=== PATIENT | female | born 1945 | race Caucasian/White ===

== ENCOUNTER 2022-11-03 08:03 | Inpatient (IN) ==
--- NOTE | 2022-10-28 12:45 | PAT Medication Instructions ---
Medication Instructions Date of Service October 28, 2022 Home Medications cetirizine 10 mg tablet 10 mg PO DAILY PRN aspirin 81 mg tablet,delayed release 81 mg PO QAM atorvastatin 20 mg tablet 20 mg PO QAM clopidogrel 75 mg tablet 75 mg PO QAM fluoxetine 40 mg capsule 40 mg PO QAM levothyroxine 50 mcg tablet 50 mcg PO QAM omeprazole 40 mg capsule,delayed release 40 mg PO QAM triamterene 37.5 mg-hydrochlorothiazide 25 mg capsule 1 cap PO QAM ASK your prescriber and surgeon aspirin 81 mg tablet,delayed release 81 mg PO QAM clopidogrel 75 mg tablet 75 mg PO QAM DO NOT take the morning of surgery cetirizine 10 mg tablet 10 mg PO DAILY PRN triamterene 37.5 mg-hydrochlorothiazide 25 mg capsule 1 cap PO QAM Take morning of surgery With a small sip of water, OTHERWISE NOTHING TO EAT OR DRINK AFTER MIDNIGHT: atorvastatin 20 mg tablet 20 mg PO QAM fluoxetine 40 mg capsule 40 mg PO QAM levothyroxine 50 mcg tablet 50 mcg PO QAM omeprazole 40 mg capsule,delayed release 40 mg PO QAM Other Notes If you have any questions please call us at [phone] or [phone] or or [phone]
--- NOTE | 2022-10-30 12:57 | Anesthesiology Consultation ---
Date of Service October 30, 2022 Assessment & Plan (1) Encounter for pre-operative examination: - mild end expiratory wheezing on exam, pt states was rx inhalers in past with benefit, occasional dyspnea on exertion on flat surfaces. Case discussed in detail with Dr. Trujillo who advised pt can proceed with planned surgery at current status-to anesthesiologist evaluation am DOS. - anesthesia reaction: hypotension. - Patient requiring admission post-operatively. Plan for recheck with [facility] AM DOS due to possibility that patient may have a roommate. OR aware. [facility] order placed. Chart Review Chart Review: Acceptable Risk for Surgery and Patient seen in Pre Admission Testing Teaching & Discussion Pre-Anesthesia Teaching/Discussion Notes: Instructed NPO after midnight before surgery, except medications with 15 cc of water. Medication instructions provided according to the PAT guidelines. History Surgery Operation Date: 11/03/22 10:10 Proposed Procedures p Right Transcarotid Artery Revascularization - Khoa Kulkarni MD Height/Weight Height: 4 ft 11.5 in Weight: 85.729 kg Allergies Allergy/AdvReac Type Severity Reaction Status Date / Time codeine AdvReac Severe Headache Verified 10/28/22 10:52 Medications Home Medications Medication Instructions Recorded Confirmed Last Taken cetirizine 10 mg tablet 10 mg PO DAILY PRN seasonal 09/05/22 10/28/22 Unknown allergies aspirin 81 mg tablet,delayed 81 mg PO QAM 10/28/22 10/28/22 Unknown release atorvastatin 20 mg tablet 20 mg PO QAM 10/28/22 10/28/22 Unknown clopidogrel 75 mg tablet 75 mg PO QAM 10/28/22 10/28/22 Unknown levothyroxine 50 mcg tablet 50 mcg PO QAM 10/28/22 10/28/22 Unknown omeprazole 40 mg capsule,delayed 40 mg PO QAM 10/28/22 10/28/22 Unknown release fluoxetine 40 mg capsule 40 mg PO QAM #90 caps 10/31/22 Unknown triamterene 37.5 1 cap PO QAM #90 caps 10/31/22 Unknown mg-hydrochlorothiazide 25 mg capsule Past Medical History Medical History Anxiety Carotid artery stenosis 80-90% stenosis R ICA Gastric reflux History of anesthesia reaction hypotension History of COVID-spring, sore throat and stomach cramps, cough-denies hospitalization- symptoms resolved Hypertension controlled, stable per pt Hypothyroidism Stroke history, found on the brain MRI. no current deficits. Transient ischemic attack (TIA) ~3 months ago, does not follow with neurology. Patient denies h/o seizures, heart attack, heart failure, DM, blood clots or blood transfusions. Exercise / Class Metabolic Activity III < 4 Walking/Shop/Light housework (occasional SOB with usual activities ongoing x 1 yr-denies change or worsening-denies chest discomfort) Past Family History Family History Mother Diabetes Aneurysm Sister Ovarian cancer Other No family history of adverse response to anesthesia Denies family history of Prostate cancer Myocardial infarction Breast cancer Colorectal cancer Hypertension Past Surgical History Surgical History History of colonoscopy S/P partial hysterectomy S/P wisdom tooth extraction Past Anesthesia History No Family Hx of Anesthesia Complications and Other (hypotension) History of PONV No Hx of PONV and No Hx of Motion Sickness Social History Smoking Status: Former smoker tobacco type: cigarettes Do You Dip or Chew Tobacco: No Smoking End Date: 2015 Hx Alcohol Use: Yes Alcohol type: wine alcohol intake frequency: holidays/special occasions only Hx Substance Use: No substance use type: does not use Review of Systems Chronic chills ongoing x 1 yr. Snoring, denies witnessed apneas. Patient denies chest pain, fever, cough, wheezing, or palpitations. Physical Exam Vital Signs Vitals BP 128/70 P 65 TEMP 98.4 SP02 97% on RA RESP 17 Physical Patient resting comfortably in chair in NAD, alert and oriented Full cervical extension range of motion without pain TMD 3.5 finger breadths Mallampati Score 3 Dentition: intact, denies chipped or loose teeth, caps/crowns, implants or bridges Lungs: normal respiratory effort. Good air movement, mild end expiratory wheezing, no rales or rhonchi Cardiac: regular rate and rhythm, no murmurs noted; radial pulses 2+ Extremities: no distal LE peripheral edema, normal temperature Lab Results Anesthesia Preop Results Results Anesthesia Widget: WBC 5.89 K/ul (4.8-10.8) 10/30/22 Hgb 12.7 g/dl (12.0-16.0) 10/30/22 Hct 38.2 % (37.0-47.0) 10/30/22 Plt 120 K/uL (130-400) L 10/30/22 Na 135 mmol/L (136-145) L 10/30/22 K 4.2 mmol/L (3.5-5.1) 10/30/22 Cl 105 mmol/L (98-107) 10/30/22 CO2 23 mmol/L (21-32) 10/30/22 BUN 16 mg/dl (6-23) 10/30/22 Creat 0.62 mg/dl (0.6-1.2) 10/30/22 Glucose Level 138 mg/dl (70-99(Fasting)) H 10/30/22 PT 11.2 Seconds (9.0-12.0) 10/30/22 PTT 31.3 Seconds (21.0-31.0) H 10/30/22 INR 1.0 (0.9-1.1) 10/30/22 Blood Type A Positive 10/30/22 Antibody Screen NEGATIVE 10/30/22 Testing Electrocardiogram Date: 10/30/22 NSR, rate 65 bpm Chest X-Ray Date: 10/30/22 Cardiac silhouette is enlarged. Mild chronic interstitial coarsening, most pronounced in the lung bases. No pneumothorax, pleural effusion, airspace consolidation or overt pulmonary edema. Bones of the chest appear grossly intact. IMPRESSION: No acute process. Other Testing Neck CTA 09/19/22 1. Extensive plaque within the right carotid bifurcation which results in severe stenosis of the proximal right internal carotid artery (80-90%), proximal right external carotid artery and distal most aspect of the right common carotid artery. 2. Extensive calcified plaque within the proximal left internal carotid artery. 50-60% stenosis of the proximal left internal carotid artery. 3. Moderate stenosis at the origin the right vertebral artery. 4. Moderate stenosis of the intracranial portion of the left vertebral artery. 5. Extensive plaque within the visualized portions of the aortic arch. Brain MRI 09/15/22 1. No acute intracranial abnormality. No acute or subacute infarct. 2. Involutional changes with extensive T2/FLAIR hyperintense foci throughout the white matter suggestive of chronic hypervascular ischemic disease. 3. Small chronic lacunar infarcts of the basal ganglia and white matter. PFT 07/11/22 Borderline reduction in both FEV1 and FVC without preserved ratio. No change after administration of inhaled bronchodilators. Pattern may be consistent with restrictive physiology and further assessment with lung volumes and diffusion capacity is recommended COVID-19 Risk Screen Screening Information COVID-19 Screen Date: 10/30/22 Exposure 21 Days Family/Household +COVID Last 21 Days: No Exposure 10 Days Any COVID Exposure Last 10 Days: No Symptoms Last 10 Days Experienced COVID Sx Last 10 Days: No + COVID 0-90 Days COVID + in Last 0-90 Days: No
--- NOTE | 2022-11-02 09:07 | History & Physical Report ---
Date of Service November 02, 2022 History of Present Illness Primary Care Provider: Clara Weathers MD Name: TRUMAN MCDANIEL Patient Number: [id number] : 1945 Date of Service: 10/27/2022 Chief Complaint: _New patient consultation for carotid stenosis HPI: _Mrs. Boss is an elderly female who presents to Dr. Kulkarni's vascular surgery clinic today as a new patient in consultation for right ICA stenosis. Patient states that about 4-5 months ago she had an episode while sitting in [employer] parking lot in her sister's car that she was unable to move her left leg for about 30 minutes. She states that it resolved completely at that point and she has not had any new symptoms since that time. She states that about 10 to 15 years ago she also had some symptoms but does not remember exactly what those entailed. She denies any symptoms of amaurosis, extremity weakness numbness or tingling, difficulty speaking or swallowing, facial droop, sudden onset confusion, other complaints. She denies fever, chills, chest pain, shortness of breath, abdominal pain, nausea, vomiting, rest pain, claudication, nonhealing wounds or ulcers. Review of systems: Total of 14 systems were reviewed and are negative aside from what is related in her HPI Imaging: Patient did undergo a carotid ultrasound at [facility] group which demonstrated over 80% stenosis of her right ICA. A CTA was then performed at [facility] which demonstrates a 90% stenosis of her right ICA, and 50 to 60% of her left. Current Home Meds: (Last Updated 10/27 16:14) FLUoxetine (FLUoxetine 40 mg oral capsule) 40 mg PO Daily aspirin (aspirin 81 mg oral delayed release tablet) 81 mg PO Daily atorvastatin (atorvastatin 20 mg oral tablet) 20 mg PO Daily clopidogrel (Plavix 75 mg oral tablet) 75 mg PO Daily hydroCHLOROthiazide-triamterene (hydroCHLOROthiazide-triamterene 25 mg-37.5 mg oral capsule) 1 cap PO Daily levothyroxine (levothyroxine 50 mcg (0.05 mg) oral tablet) 50 mcg PO Daily omeprazole (omeprazole 40 mg oral delayed release capsule) 40 mg PO Daily Allergies and Sensitivities: codeine(Headache) codeine(severe headache) Past Medical History: Problems: Carotid stenosis, bilateral Carotid artery stenosis Hypothyroidism Hypertension Gastroesophageal reflux disease Anxiety Surgical history: Positive for partial hysterectomy, dental teeth extraction Family history: Positive for diabetes and a heart aneurysm in her mother, ovarian cancer in her sister Social history: Patient is a former smoker, having smoked 1/2 pack/day from the age of 11 to the age of 69. She states she has an alcoholic beverage in the form of wine about once per month. She denies any illicit drug use. She is a . And is a retired retail receiving clerk OBJECTIVE No Vital Signs Data Available No Orthostatic Data Available No Height/Weight Data Available Physical Exam Constitutional: In general patient is a healthy-appearing well-nourished well- developed elderly female no distress. Is alert and orient without a focal deficits. He is normocephalic and atraumatic. Her carotids do demonstrate bruits bilaterally. Her heart is regular, her lungs are decreased lightly but clear. Her abdomen is soft and nontender with normoactive bowel sounds in all 4 quadrants. Brachial and radial pulse are +3. Femoral pulses are +3. Lower extremity distal pulses are +1 in the right foot +2 in the left. She has brisk capillary refill and no sign of distal ischemia. I do not notice any edema ASSESSMENT: _ PLAN: _ 1 ) _right ICA stenosis Patient does have a severe stenosis of her right internal carotid artery, which was likely symptomatic during her possible TIA event a few months ago. Due to the severity of the stenosis, we did recommend that she undergo surgical intervention. Surgical options of carotid endarterectomy versus transcarotid artery revascularization were discussed with the patient at length. She elects to proceed with a right transcarotid artery revascularization procedure. The procedure risks benefits and alternatives were discussed with the patient by myself at Dr. Kulkarni's request. Patient expressed understanding and agreement to proceed. She is not on aspirin, Plavix, or statin medication, all 3 of which are required for her to undergo TCAR. We sent all 3 to the pharmacy for her to begin today in preparation for her TCAR procedure hopefully in the next few weeks. Patient expresses understanding. She will call with any other [employer] ns. Thank you for letting us participate in the care of this patient. Signature Line Electronic Signature on File CC: Clara Weathers MD [id number] [facility] [address] [facility] [id number] * Electronically Reviewed/Signed by: Karrie Gutiérrez PA-C Author Signature Dt/Tm:10/27/2022 04:35 PM [facility] [place] [address], [address] [place] [address] LM Result Type: HVI Outpt Note Date of Service: October 27, 2022 16:29 EDT Authorization Status: Final Author or Import Date: ILANA Gutiérrez Lynn on October 27, 2022 16:35 EDT Verified By: ILANA Gutiérrez Lynn on October 27, 2022 16:35 EDT Encounter info: [id number], [place] [address], Clinic, 10/27/2022 - 10/27/2022 Allergies Allergy/AdvReac Type Severity Reaction Status Date / Time codeine AdvReac Severe Headache Verified 10/28/22 10:52 Home Medications Medication Instructions Recorded Confirmed Type cetirizine 10 mg tablet 10 mg PO DAILY PRN seasonal 09/05/22 10/28/22 History allergies aspirin 81 mg tablet,delayed 81 mg PO QAM 10/28/22 10/28/22 History release atorvastatin 20 mg tablet 20 mg PO QAM 10/28/22 10/28/22 History clopidogrel 75 mg tablet 75 mg PO QAM 10/28/22 10/28/22 History levothyroxine 50 mcg tablet 50 mcg PO QAM 10/28/22 10/28/22 History omeprazole 40 mg capsule,delayed 40 mg PO QAM 10/28/22 10/28/22 History release fluoxetine 40 mg capsule 40 mg PO QAM #90 caps 10/31/22 Rx triamterene 37.5 1 cap PO QAM #90 caps 10/31/22 Rx mg-hydrochlorothiazide 25 mg capsule Past Med/Surg History Medical History Anxiety Carotid artery stenosis 80-90% stenosis R ICA Gastric reflux History of anesthesia reaction hypotension History of COVID-spring, sore throat and stomach cramps, cough-denies hospitalization- symptoms resolved Hypertension controlled, stable per pt Hypothyroidism Stroke history, found on the brain MRI. no current deficits. Transient ischemic attack (TIA) ~3 months ago, does not follow with neurology. Surgical History History of colonoscopy S/P partial hysterectomy S/P wisdom tooth extraction Family History Mother Diabetes Aneurysm Sister Ovarian cancer Other No family history of adverse response to anesthesia Denies family history of Prostate cancer Myocardial infarction Breast cancer Colorectal cancer Hypertension Social History Smoking Status: Former smoker Tobacco Type: Cigarettes Age Started Using Tobacco: 11; Age Quit Using Tobacco: 69; packs per day: 0.5; Smoking End Date: 2015; Second Hand Exposure: Yes; Do You Dip or Chew Tobacco: No; Tobacco Cessation Education Requested by Patient: No Hx Alcohol Use: Yes Alcohol type: wine Alcohol Intake Frequency: Monthly or Less Hx Substance Use: No Preferred Language: Yoruba Communication Ability: Effective Visual Impairment: No Limitations Hearing Ability: Normal Tape Weaver Required: No Beliefs That Will Affect Care: None marital status: / Current Living Situation: Alone current occupational status: retired 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
[~2022-11-03 08:03] MED LIST: CEFAZOLIN 2,000 MG/15 ML SYR IV SCH; LACTATED RINGER'S 1,000 ML BAG IV SCH
--- NOTE | 2022-11-03 09:29 | History & Physical Bridge Note ---
Date of Service November 03, 2022 History & Physical Bridge Note I have examined the patient, reviewed the History & Physical and in the interval since the performance of the History & Physical I have noted the following changes of clinical significance: no changes noted
[2022-11-03] MEDS ORDERED: fentaNYL citrate PF 100 MCG/2 ML VIAL ONE ×2 (10:01→11:35)
[2022-11-03] MEDS ORDERED: GELATIN SPONGE 12-7MM ONE (10:23)
[2022-11-03] MEDS ORDERED: THROMBIN FOR SOLN 20000 UNIT KIT ONE (10:23)
[2022-11-03] MEDS ORDERED: ceFAZolin 330 MG/ML 1 GM VIAL ONE (10:23)
[2022-11-03] MEDS ORDERED: BUPIVACAINE/EPINEPHRINE 0.5% MPF 1:200,000 30 ML VIAL ONE (10:23)
[2022-11-03] MEDS ORDERED: GELATIN SPONGE SZ 100 ONE (10:28)
[2022-11-03] MEDS ORDERED: GLYCOPYRROLATE 0.2 MG/ML VIAL ONE (10:59)
[2022-11-03] MEDS ORDERED: LIDOCAINE 2% 2 ML VIAL/AMP(20MG/ML) INFIL ONE (10:59)
[2022-11-03] MEDS ORDERED: PROPOFOL IV EMULSION 10 MG/ML 20 ML VIAL IV ONE (10:59)
[2022-11-03] MEDS ORDERED: ROCURONIUM BROMIDE 10 MG/ML 5 ML VIAL IV ONE (10:59)
[2022-11-03] MEDS ORDERED: HEPARIN SOD (PORCINE) 1000 UNIT/ML ONE (11:01)
[2022-11-03] MEDS ORDERED: PROMETHAZINE HCL 12.5 MG in SODIUM CHLORIDE 0.9% 50 ML IV PRN (11:35)
[2022-11-03] MEDS ORDERED: fentaNYL citrate PF 100 MCG/2 ML VIAL IV PRN (11:35)
[2022-11-03] MEDS ORDERED: ePHEDrine sulfate 50 MG/ML AMP IV PRN (11:35)
[2022-11-03] MEDS ORDERED: ATROPINE SULFATE 0.1 MG/ML 10ML SYR IV PRN (11:35)
[2022-11-03] MEDS ORDERED: NALOXONE HCL 0.4 MG/1 ML VIAL/CARP IV PRN (11:35)
[2022-11-03] MEDS ORDERED: ONDANSETRON INJ 2 MG/ML 2 ML VIAL IV PRN (11:35)
[2022-11-03] MEDS ORDERED: FLUMAZENIL 0.1 MG/1 ML 10 ML VIAL IV PRN (11:35)
[2022-11-03] MEDS ORDERED: LABETALOL HCL IV 5 MG/ML 20ML IV PRN (11:35)
[2022-11-03] MEDS ORDERED: ONDANSETRON INJ 2 MG/ML 2 ML VIAL ONE (11:47)
[2022-11-03] MEDS ORDERED: DEXAMETHASONE SOD INJ 4 MG/ML VIAL ONE (11:47)
[2022-11-03] MEDS ORDERED: VISIPAQUE ONE (11:55)
[2022-11-03] MEDS ORDERED: PROTAMINE SULFATE 10 MG/ML 5 ML VIAL IV ONE (12:21)
[2022-11-03] MEDS ORDERED: SUGAMMADEX SODIUM 200 MG/2 ML VIAL IV ONE (12:23)
[2022-11-03] MEDS ORDERED: ePHEDrine sulfate 50 MG/ML SYR ONE (12:29)
--- NOTE | 2022-11-03 13:02 | Procedure Note ---
Angiogram Post Procedure Fluoroscopy Time (minutes): 4.7 Radiation (mGy): 38 Contrast: 20 Post Operative Report Pre & Post Diagnosis Operation Date: 11/03/22 10:10 Pre-Op Diagnosis: Right Carotid Stenosis Post-Op Diagnosis: Right Carotid Stenosis I identified the patient and participated in the time-out.: Yes Procedure Operation Date: 11/03/22 10:10 Actual Procedures p Right Transcarotid Artery Revascularization with Ultrasound localization left femoral vein(Right) - Khoa Kulkarni MD Surgeon Khoa Kulkarni MD Hide Inspector none Estimated Blood Loss 30 Findings Consistent with Post-Op Diagnosis Specimens none Anesthesia Type General Complications none Disposition Accompanied Patient To Recovery: No Disposition: Recovery Room Indications This is a 77-year-old female who had a TIA 4 to 5 months ago. She was found to have a stenosis of her right carotid artery. There was greater than 90%. Intervention was recommended. Went over the risks options and benefits of endarterectomy versus TCAR. She elected to go with a TCAR. I have discussed the risks options and benefits of the procedure with the pat ient. The patient understands the risks options and benefits and agrees to the procedure. Description of Procedure The patient was taken to the operating room and placed in supine position. After general anesthesia was accomplished the groins and right side of the neck and chest were prepped and draped in a sterile manner. Timeout was performed a nd the patient was identified. A transverse incision was made just above the clavicle between the heads of the sternocleidomastoid. This was carried down to where the common carotid artery was identified. It was isolated and slung with an umbilical tape. It was given 9000units of heparin at that time.A U stitch was placed in the common carotid artery with using 5-0 Prolene suture. Ultrasound was then used to localize the left common femoral vein. The vein was patent and compressed easily. Under ultrasound guidance the left common femoral vein was punctured and the venous sheath was inserted. This was aspirated and flushed with heparinized saline. An ACT at that time was 305. Using micropuncture technique the common carotid artery was punctured. The micro sheath was inserted to 3 cm using a tunnel technique. Injection was then done showing the bifurcation. There was a significant lesion seen at the origin of the internal carotid artery on the right side. We then inserted the J-wire and had it fall short of the bifurcation of the carotid artery. The TCAR sheath was inserted. We tunneled the TCAR sheath therefore remove the plate. Once it was in place and held against the artery it was sutured to the chest wall and the incision edge. We then flushed the tubing appropriately. The venous return tubing was clamped onto the TCAR sheath. It was flushed through and then attached to the venous inflow sheath in the left groin. The sheath was checked for flow.We then inserted a 4 x 35 balloon backloaded on the wire. The wire had some difficulty traversing the common carotid artery and an area of a plaque. We therefore removed the balloon and inserted a Kumpe catheter to better angle the wire at that level. Using the Kumpe the wire passed easily. The wire was passed through the lesion into the petrous portion of the internal carotid. We we then injected contrast to check for small dissection. There was a small dissection of the distal common carotid artery above where the TCAR sheath was placed. We decided this to be stented later on the way out of the procedure. The 4 balloon was then advanced to the lesion. The lesion was then predilated with the 4 mm balloon. The balloon was removed. We then inserted the 8 x 40 stent. This was deployed across the lesion without difficulty. The catheter was removed. The carotid was allowed to go 2 minutes with flow reversal. Completion angiogram was done at that time which showed a very mild residual stenosis. We then inserted a 10 x 30 stent and overlapped it to cover the small area of dissection. Again after the angio was done which showed a widely patent stent with no dissection plane seen. The wire was removed we allowed 2 minutes of flow reversal to occur. At that point the common carotid artery was unclamped. The venous return tubing was clamped and removed from the TCAR sheath. The blood was allowed to flow back into the venous system. Once this was completed the sheath was pulled from the groin and pressure was applied. The TCAR sheath was then removed and the 5-0 Prolene suture securely tied. Hemostasis was noted of the puncture site. Wound was irrigated with Anc ef solution. Adequate hemostasis was obtained of the wound. Once this was noted the wound was closed in usual fashion using a 3-0 Vicryl suture for the subcutaneous layer and a 4-0 subcuticular Vicryl suture for the skin edges. Dermabond was used for dressing.The patient left the operation room in satisfactory condition and tolerated the procedure well. All needle and sponge counts were correct at the end of the procedure. I attest to the content of the Intraoperative Record and any orders documented therein. Any exceptions are noted below.
--- NOTE | 2022-11-03 13:45 | Anesthesiology Progress Note ---
Date of Service November 03, 2022 Anesthesia Post Procedure Vital Signs Vital Signs: Temp Pulse Pulse Resp BP BP BP 11/03/22 13:40 79 16 114/67 132/79 11/03/22 13:30 78 14 111/57 L 132/46 L 11/03/22 13:20 78 20 109/70 131/47 L 11/03/22 13:10 79 18 101/60 119/50 L 11/03/22 13:00 78 16 100/61 128/79 11/03/22 12:59 36.0 C L 83 16 112/47 L 124/47 L 11/03/22 09:06 11/03/22 09:06 36.6 C 66 20 181/65 H 182/67 H Pulse Ox O2 Del Method O2 Flow Rate 11/03/22 13:40 95 Nasal Cannula 4 11/03/22 13:30 96 Oxymask 6 11/03/22 13:20 95 Oxymask 6 11/03/22 13:10 95 Oxymask 6 11/03/22 13:00 96 Oxymask 6 11/03/22 12:59 95 Oxymask 6 11/03/22 09:06 Room Air 11/03/22 09:06 95 Room Air Transfer of Care Handoff Completed per policy Notes Mental Status: alert / awake / arousable Patient Amnestic to Procedure: Yes Nausea / Vomiting: adequately controlled Pain: adequately controlled Airway Patency, RR, SpO2: stable & adequate BP & HR: stable & adequate Hydration State: stable & adequate Anesthetic Complications: no major complications apparent Notes: neurologically intact
[2022-11-03] MEDS ORDERED: CETIRIZINE HCL 10 MG TABLET PO PRN (14:36)
[2022-11-03] MEDS ORDERED: MoRPHine SULFATE 4 MG/ML 1 ML CARP\\VIAL IV PRN (14:36)
[2022-11-03] MEDS ORDERED: oxyCODONE/ACETAMINOPHEN 5mg/325mg TAB PO PRN (14:36)
[2022-11-03] MEDS: LACTATED RINGER'S 1,000 ML IV SCH ×2 (14:56→22:00)
[2022-11-03] MEDS: ceFAZolin 2000MG 2,000 MG/15 ML SYR IV SCH (20:11)
--- NOTE | 2022-11-03 20:19 | Critical Care Consultation ---
Date of Consultation November 03, 2022 Assessment & Plan (1) Carotid artery stenosis: Status post right TCAR for 90% stenosis of the right ICA. Neurological exam benign. Monitoring in ICU overnight postop day of surgery. Continue ASA, statin, Plavix. Empiric Ancef. Endovascular surgery managing, will follow recommendations. (2) Gastric reflux: Continue Protonix (3) Hypothyroidism: Continue Synthroid (4) Hypertension: Continue Dyazide (5) Anxiety: Continue Prozac History of Present Illness Attending Physician: Khoa Kulkarni MD History of Present Illness Patient is a 77-year-old female with past medical history of HTN, depression, hypothyroidism, GERD, and TIA who was found to have 90% stenosis of the right ICA and 50% stenosis of the left ICA after having left lower extremity weakness. Patient was evaluated by endovascular surgery in the outpatient and was scheduled for scheduled right TCAR for which she now presents to the ICU postop DOS. On arrival to the ICU the patient is alert and oriented, with only complaint of a mild headache for which she took Tylenol and showed improvement. She denies any neurological symptoms including weakness or numbness, changes in vision, or facial droop. She denies recent illness, fevers, syncopal events, dizziness, sore throat or cough, shortness of breath, chest pain or palpitations, abdominal pain, nausea vomiting or diarrhea, swelling in hands or feet. Patient will remain in ICU overnight for observation post TCAR procedure. Allergies Allergy/AdvReac Type Severity Reaction Status Date / Time codeine AdvReac Severe Headache Verified 11/03/22 09:01 Home Medications Medication Instructions Recorded Confirmed Type cetirizine 10 mg tablet (Zyrtec) 10 mg PO DAILY PRN seasonal 09/05/22 11/03/22 History allergies aspirin 81 mg tablet,delayed 81 mg PO QAM 10/28/22 11/03/22 History release atorvastatin 20 mg tablet (Lipitor) 20 mg PO QAM 10/28/22 11/03/22 History clopidogrel 75 mg tablet (Plavix) 75 mg PO QAM 10/28/22 11/03/22 History levothyroxine 50 mcg tablet 50 mcg PO QAM 10/28/22 11/03/22 History omeprazole 40 mg capsule,delayed 40 mg PO QAM 10/28/22 11/03/22 History release triamterene 37.5 1 cap PO QAM #90 caps 05/19/23 05/22/23 Rx mg-hydrochlorothiazide 25 mg capsule fluoxetine 40 mg capsule (Prozac) 40 mg PO QAM 11/03/22 11/03/22 History Patient History Medical History Anxiety Carotid artery stenosis 80-90% stenosis R ICA Gastric reflux History of anesthesia reaction hypotension History of COVID-spring, sore throat and stomach cramps, cough-denies hospitalization- symptoms resolved Hypertension controlled, stable per pt Hypothyroidism Stroke history, found on the brain MRI. no current deficits. Transient ischemic attack (TIA) ~3 months ago, does not follow with neurology. Surgical History History of colonoscopy S/P partial hysterectomy S/P wisdom tooth extraction Family History Mother Diabetes Aneurysm Sister Ovarian cancer Other No family history of adverse response to anesthesia Denies family history of Prostate cancer Myocardial infarction Breast cancer Colorectal cancer Hypertension Social History Smoking Status: Former smoker Tobacco Type: Cigarettes Age Started Using Tobacco: 11; Age Quit Using Tobacco: 69; packs per day: 0.5; Smoking End Date: 2015; Second Hand Exposure: Yes; Do You Dip or Chew Tobacco: No; Tobacco Cessation Education Requested by Patient: No Hx Alcohol Use: Yes Alcohol type: wine Alcohol Intake Frequency: Monthly or Less Hx Substance Use: No Preferred Language: Welsh Communication Ability: Effective Visual Impairment: No Limitations Hearing Ability: Normal Disability Attorney Required: No Beliefs That Will Affect Care: None marital status: / Current Living Situation: Alone current occupational status: retired current occupation: used to work as an team assistant of a retail store Other Information That Helps Us Care for You: No Feels Safe at Home: Yes Safety Concerns: Feels Safe At This Time Childhood Exposure to Second-Hand Smoke: Yes Diet: regular Diet Comment: regular Dental Care, Regularly: No Physical Activity Frequency: 3-4 Times per Week Seatbelt Use: always Sunscreen Use: No Assistive Devices: Denture - Upper, Denture - Lower and Glasses Review of Systems Review of Systems: All systems reviewed & are unremarkable except as noted in HPI & below Physical Exam Constitutional: well developed, cooperative and comfortable Eyes: PERRL, conjunctivae normal, anicteric sclerae ENMT: external ear and nose normal, oropharynx normal Neck: trachea midline, no thyromegaly Respiratory: normal respiratory effort, lungs clear to auscultation Cardiovascular: RRR, no murmur, no edema Heart Sounds: normal S1 and normal S2; no murmur Extremities: normal capillary refill; no edema Gastrointestinal (Abdomen): normal bowel sounds, soft, nontender, no hepatosplenomegaly Musculoskeletal: no cyanosis or clubbing, extremities motor strength 5/5 Skin: no rashes, warm and dry Neurologic: PERRL, EOMI, accommodation nl, no face palsy, no dysarthria Psychiatric: A+Ox3, euthymic affect Results & Data Results & Data Vital Signs (Past 12 Hours) Vital Signs Temp Pulse Pulse Pulse Resp BP BP 11/03/22 18:00 79 16 11/03/22 18:00 140/81 11/03/22 17:42 135/65 11/03/22 17:42 79 19 11/03/22 17:00 76 17 11/03/22 17:00 130/74 11/03/22 16:00 77 15 11/03/22 16:00 121/71 11/03/22 15:01 120/59 L 11/03/22 15:01 76 20 11/03/22 15:00 75 19 11/03/22 14:45 79 19 11/03/22 14:30 81 17 11/03/22 14:21 80 15 11/03/22 15:02 75 11/03/22 13:50 36.3 C L 79 16 11/03/22 13:40 79 16 11/03/22 13:30 78 14 11/03/22 13:20 78 20 11/03/22 13:10 79 18 11/03/22 13:00 78 16 11/03/22 12:59 36.0 C L 83 16 11/03/22 09:06 11/03/22 09:06 36.6 C 66 20 181/65 H BP BP Pulse Ox O2 Del Method O2 Flow Rate 11/03/22 18:00 93 11/03/22 18:00 11/03/22 17:42 11/03/22 17:42 91 11/03/22 17:00 94 11/03/22 17:00 11/03/22 16:00 93 11/03/22 16:00 11/03/22 15:01 11/03/22 15:01 90 11/03/22 15:00 90 Room Air 11/03/22 14:45 90 11/03/22 14:30 90 11/03/22 14:21 92 11/03/22 15:02 11/03/22 13:50 120/65 133/46 L 95 Nasal Cannula 4 11/03/22 13:40 114/67 132/79 95 Nasal Cannula 4 11/03/22 13:30 111/57 L 132/46 L 96 Oxymask 6 11/03/22 13:20 109/70 131/47 L 95 Oxymask 6 11/03/22 13:10 101/60 119/50 L 95 Oxymask 6 11/03/22 13:00 100/61 128/79 96 Oxymask 6 11/03/22 12:59 112/47 L 124/47 L 95 Oxymask 6 11/03/22 09:06 Room Air 11/03/22 09:06 182/67 H 95 Room Air Coding Level of Care Code 41207 IN/OBS CONSULT LVL 4,60M Diagnoses Carotid artery stenosis I65.29 Gastric reflux K21.9 Hypothyroidism E03.9 Hypertension I10 Anxiety F41.9
[2022-11-04] MEDS: ceFAZolin 2000MG 2,000 MG/15 ML SYR IV SCH (03:21)
[2022-11-04] MEDS ORDERED: LEVOTHYROXINE SODIUM 50 MCG TABLET PO SCH (06:30)
[2022-11-04] MEDS: LACTATED RINGER'S 1,000 ML IV SCH (06:56)
[2022-11-04] MEDS ORDERED: TRIAMTERENE/HCTZ 37.5/25MG CAP PO SCH (09:00)
[2022-11-04] MEDS ORDERED: CLOPIDOGREL BISULFATE 75 MG TAB PO SCH (09:00)
[2022-11-04] MEDS ORDERED: FLUoxetine HCL 20 MG CAP PO SCH (09:00)
[2022-11-04] MEDS ORDERED: PANTOprazole 40 MG TAB PO SCH (09:00)
[2022-11-04] MEDS ORDERED: ASPIRIN 81 MG ECTAB PO SCH (09:00)
[2022-11-04] MEDS ORDERED: ATORVASTATIN 20 MG TAB PO SCH (09:00)
--- NOTE | 2022-11-04 09:15 | Surgery Progress Note ---
Date of Service November 04, 2022 Assessment & Plan (1) Internal carotid artery stent present: Plan: Pt now POD #1 after R TCAR procedure. Pt doing well post op. VSS, taking PO well. Also seen by Dr Kulkarni today. Recommends d/c home today. Pt agreeable. Admission and Anticipated Discharge Date Admission Date: November 03, 2022 Subjective 77 yo f POD #1 after uncomplicated R TCAR, seen inf/u today. Pt admits some pain in R neck incision, fatigue, and feeling her throat is sore and causing her to cough when drinking. Taking PO well, eating without problems. No new neuro complaints. Review of Systems Review of Systems: All systems reviewed & are unremarkable except as noted in HPI & below Physical Exam Constitutional: WD/WN, vitals as above Neck: trachea midline R supraclavicualr incision C/D/I, mild local ecchymosis, tenderness, minimal swelling. Respiratory: normal respiratory effort, lungs clear to auscultation Cardiovascular: Rate/Rhythm: regular rate and regular rhythm Gastrointestinal (Abdomen): Inspection/Auscultation: abdomen normal to inspection and normal bowel sounds Percussion/Palpation: abdomen soft; abdomen nontender Musculoskeletal: no cyanosis or clubbing, extremities motor strength 5/5 Skin: no rashes, warm and dry Neurologic: moves all extremities and awake; no focal motor deficits and not confused Psychiatric: A+Ox3, euthymic affect Results & Data Vital Signs (Past 12 Hours) Vital Signs Temp Pulse Resp BP Pulse Ox O2 Del Method 11/04/22 07:00 73 16 94 Room Air 11/04/22 07:00 151/77 H 11/04/22 07:34 77 11/04/22 06:50 77 18 11/04/22 06:40 72 21 93 11/04/22 06:30 77 19 93 11/04/22 06:20 72 16 91 11/04/22 06:10 72 19 91 11/04/22 06:00 73 20 90 11/04/22 06:00 129/63 11/04/22 05:50 72 13 91 11/04/22 05:40 73 14 91 11/04/22 05:30 73 10 L 90 11/04/22 05:20 74 13 90 11/04/22 05:10 74 12 90 11/04/22 05:00 74 13 11/04/22 05:00 121/64 11/04/22 04:50 74 15 11/04/22 04:40 76 18 91 11/04/22 04:30 77 13 90 11/04/22 04:20 76 20 90 11/04/22 04:10 75 19 90 11/04/22 04:00 75 13 90 11/04/22 04:00 126/61 11/04/22 03:50 77 16 11/04/22 03:40 77 16 91 11/04/22 03:30 74 17 11/04/22 03:20 75 12 90 11/04/22 03:10 79 13 93 11/04/22 03:00 36.6 C 75 16 90 11/04/22 03:00 133/64 11/04/22 02:00 75 14 90 11/04/22 02:00 125/61 11/04/22 01:00 77 14 90 11/04/22 01:00 139/65 11/04/22 00:01 36.6 C 75 17 89 L 11/04/22 00:01 114/49 L 11/04/22 00:00 74 18 92 11/03/22 23:00 78 18 11/03/22 23:00 121/59 L 11/03/22 22:00 83 21 11/03/22 22:00 120/59 L 11/04/22 00:00 76
--- NOTE | 2022-11-04 09:16 | Discharge Summary ---
Date of Service November 04, 2022 Admission HPI Per Admitting Provider Name: TRUMAN MCDANIEL Patient Number: [id number] : 1945 Date of Service: 10/27/2022 Chief Complaint: _New patient consultation for carotid stenosis HPI: _Mrs. Boss is an elderly female who presents to Dr. Lane's vascular surgery clinic today as a new patient in consultation for right ICA stenosis. Patient states that about 4-5 months ago she had an episode while sitting in [employer] parking lot in her sister's car that she was unable to move her left leg for about 30 minutes. She states that it resolved completely at that point and she has not had any new symptoms since that time. She states that about 10 to 15 years ago she also had some symptoms but does not remember exactly what those entailed. She denies any symptoms of amaurosis, extremity weakness numbness or tingling, difficulty speaking or swallowing, facial droop, sudden onset confusion, other complaints. She denies fever, chills, chest pain, shortness of breath, abdominal pain, nausea, vomiting, rest pain, claudication, nonhealing wounds or ulcers. Review of systems: Total of 14 systems were reviewed and are negative aside from what is related in her HPI Imaging: Patient did undergo a carotid ultrasound at [facility] group which demonstrated over 80% stenosis of her right ICA. A CTA was then performed at [facility] which demonstrates a 90% stenosis of her right ICA, and 50 to 60% of her left. Current Home Meds: (Last Updated 10/27 16:14) FLUoxetine (FLUoxetine 40 mg oral capsule) 40 mg PO Daily aspirin (aspirin 81 mg oral delayed release tablet) 81 mg PO Daily atorvastatin (atorvastatin 20 mg oral tablet) 20 mg PO Daily clopidogrel (Plavix 75 mg oral tablet) 75 mg PO Daily hydroCHLOROthiazide-triamterene (hydroCHLOROthiazide-triamterene 25 mg-37.5 mg oral capsule) 1 cap PO Daily levothyroxine (levothyroxine 50 mcg (0.05 mg) oral tablet) 50 mcg PO Daily omeprazole (omeprazole 40 mg oral delayed release capsule) 40 mg PO Daily Allergies and Sensitivities: codeine(Headache) codeine(severe headache) Past Medical History: Problems: Carotid stenosis, bilateral Carotid artery stenosis Hypothyroidism Hypertension Gastroesophageal reflux disease Anxiety Surgical history: Positive for partial hysterectomy, dental teeth extraction Family history: Positive for diabetes and a heart aneurysm in her mother, ovarian cancer in her sister Social history: Patient is a former smoker, having smoked 1/2 pack/day from the age of 11 to the age of 69. She states she has an alcoholic beverage in the form of wine about once per month. She denies any illicit drug use. She is a . And is a retired retail pharmacy manager OBJECTIVE No Vital Signs Data Available No Orthostatic Data Available No Height/Weight Data Available Physical Exam Constitutional: In general patient is a healthy-appearing well-nourished well-de veloped elderly female no distress. Is alert and orient without a focal deficits. He is normocephalic and atraumatic. Her carotids do demonstrate bruits bilaterally. Her heart is regular, her lungs are decreased lightly but clear. Her abdomen is soft and nontender with normoactive bowel sounds in all 4 quadrants. Brachial and radial pulse are +3. Femoral pulses are +3. Lower extremity distal pulses are +1 in the right foot +2 in the left. She has brisk capillary refill and no sign of distal ischemia. I do not notice any edema ASSESSMENT: _ PLAN: _ 1 ) _right ICA stenosis Patient does have a severe stenosis of her right internal carotid artery, which was likely symptomatic during her possible TIA event a few months ago. Due to the severity of the stenosis, we did recommend that she undergo surgical intervention. Surgical options of carotid endarterectomy versus transcarotid artery revascularization were discussed with the patient at length. She elects to proceed with a right transcarotid artery revascularization procedure. The procedure risks benefits and alternatives were discussed with the patient by myself at Dr. Lane's request. Patient expressed understanding and agreement to proceed. She is not on aspirin, Plavix, or statin medication, all 3 of which are required for her to undergo TCAR. We sent all 3 to the pharmacy for her to begin today in preparation for her TCAR procedure hopefully in the next few weeks. Patient expresses understanding. She will call with any other questions. Thank you for letting us participate in the care of this patient. Signature Line Electronic Signature on File CC: Clara Weathers MD [address] [facility] [address] * Electronically Reviewed/Signed by: Karrie Gutiérrez PA-C Author Signature Dt/Tm:10/27/2022 04:35 PM [facility] [place] [address], [address] [place] [address] LM Result Type: HVI Outpt Note Date of Service: October 27, 2022 16:29 EDT Authorization Status: Final Author or Import Date: ILANA Gutéirrez Lynn on October 27, 2022 16:35 EDT Verified By: ILANA Gutiérrez Lynn on October 27, 2022 16:35 EDT Encounter info: [id number], [place] [address], Clinic, 10/27/2022 - 10/27/2022 Admission Exam Per Admitting Provider Constitutional: In general patient is a healthy-appearing well-nourished well- developed elderly female no distress. Is alert and orient without a focal deficits. He is normocephalic and atraumatic. Her carotids do demonstrate bruits bilaterally. Her heart is regular, her lungs are decreased lightly but clear. Her abdomen is soft and nontender with normoactive bowel sounds in all 4 quadrants. Brachial and radial pulse are +3. Femoral pulses are +3. Lower extremity distal pulses are +1 in the right foot +2 in the left. She has brisk capillary refill and no sign of distal ischemia. I do not notice any edema Principal Diagnosis 1. s/p R TCAR 2. R ICA Stenosis Discharge Exam Constitutional WD/WN, vitals as above Neck trachea midline Respiratory normal respiratory effort, lungs clear to auscultation Cardiovascular Rate/Rhythm: regular rate and regular rhythm Gastrointestinal (Abdomen) Inspection/Auscultation: abdomen normal to inspection and normal bowel sounds Percussion/Palpation: abdomen soft; abdomen nontender Musculoskeletal no cyanosis or clubbing, extremities motor strength 5/5 Skin no rashes, warm and dry Neurologic moves all extremities and awake; no focal motor deficits and not confused Psychiatric A+Ox3, euthymic affect Discharge Data Allergies Allergy/AdvReac Type Severity Reaction Status Date / Time codeine AdvReac Severe Headache Verified 11/03/22 09:01 Consultations 11/03/22 14:36 Consult Sheetrock Applicator Routine Procedures Performed Operation Date: 11/03/22 10:10 Actual Procedures p Right Transcarotid Artery Revascularization with Ultrasound localization left femoral vein(Right) - Khoa Lane MD Ordered Studies 11/03/22 07:07 EV angio carotid cerv RT Routine US EV guide vascular access Routine Hospital Course (1) Internal carotid artery stent present: Pt now POD #1 after R TCAR procedure. Pt doing well post op. VSS, taking PO well. Also seen by Dr Lane today. Recommends d/c home today. Pt agreeable. Total Time Total Time Spent Total Time Spent (In Minutes): 0 Discharge Plan Discharge Items Patient Disposition: Home - Self-Care Reason For Visit: Right Carotid Stenosis Discharge Diagnosis: 1. s/p Right Transcarotid Artery Revascularization 2. Right Carotid stenosis Activity: Per Instructions section Non-emergency contact: Primary Care Provider and Surgeon Call non-emergency contact if: you have any medication questions, your pain is not controlled, your pain is concerning for you, you have a fever, your wound has increased redness and your wound has increased drainage Follow-up/Referrals: Clara Weathers MD [Primary Care Provider] - (Follow up with your PCP within 2 weeks) Khoa Lane MD [Physician] - (Follow up with Dr Lane or Karrie Gutiérrez PA-C, in 2 weeks) Diet: Heart Healthy Addtl Attending Provider Instructions: SPECIAL CARE INSTRUCTIONS: Medications: * Continue to take Aspirin, atorvastatin, and clopidogrel. DO NOT STOP THESE MEDICATIONS WITHOUT SPEAKING TO DR LANE'S OFFICE. Incision Care: * You may shower, but do not rub incision. You may let the warm soapy water run over it. Be sure to dry the incision well after bathing. * Do not shave directly over the incision until it is healed. * DO NOT IMMERSE THE INCISION IN A TUB/POOL/etc. UNTIL HEALED. Restrictions: * Do not drive for at least one week or if you are still taking any narcotic pain medication. * Do not lift anything heavier than a gallon of milk for one week after going home. Possible Complications: * Numbness - It is normal to have some numbness around the incision. Numbness can extend beyond the incision to areas of the neck, ear and face. The numbness is due to bruising of nerves during the surgery and will gradually improve over a period of months. * Hoarseness/Difficulty Speaking and Swallowing - The bruising of nerves in the neck can also cause a hoarse voice, difficulty speaking or swallowing. This may improve over time, HOWEVER, if it continues for more than a few days please contact our office ([phone]). * Excessive Swelling - There will be some swelling immediately after surgery which usually resolves within one week. If you notice that the swelling is getting worse, notify your surgeon ([phone]). * Drainage/Bleeding - If there is any drainage or bleeding, it should be a very small amount (less than a teaspoon per day). If you have excessive bleeding or drainage from the incision, call your surgeon ([phone]) right away. ACTIVATION OF EMERGENCY MEDICAL SYSTEM: Call 911, immediately, if you experience any of the following: Warning Signs and Symptoms of Stroke: * Sudden numbness or weakness of the face, arm or leg, especially on one side of the body * Sudden confusion, trouble speaking or understanding * Sudden trouble seeing in one or both eyes * Sudden trouble walking, dizziness, loss of balance or coordination * Sudden severe headache with no cause Do not delay calling 911 if you experience any warning signs or symptoms of a stroke. Delay in seeking medical attention may affect what treatments can be given to you. Risk Factors for Stroke: You can reduce your chances of stroke by working with your medical provider to adopt a healthy lifestyle. Some specific ways to lower your chance of stroke are: * If you are a smoker, now is the time to stop smoking cigarettes * If you are diabetic, improve the control of your blood sugars * Avoid excessive amounts of alcohol * Control high blood pressure * Lose weight if you are overweight * Be sure to lead an active lifestyle * Eat a healthy diet low in salt, cholesterol and fat You should know about other risk factors for stroke that you are unable to control. These include: * Age 55 years or older * Male gender * Certain racial groups: , or / * Family History of Stroke, Mini stroke or Heart Attack * Sickle Cell Disease You will be receiving a call from the Vascular Surgery Nurse after you are discharged. FOLLOW UP VISIT: It is important for you to keep your follow up appointments with your medical provider. Keep any scheduled doctor appointments. Pending Studies at Discharge: No Stand-Alone Forms: My [employer], Smoking Cessation Medications and DC Order Prescriptions: New tramadol 50 mg tablet 50 mg PO BID PRN (Reason: pain) Qty: 10 0RF Continued triamterene-hydrochlorothiazid 37.5-25 mg capsule 1 cap PO QAM Qty: 90 1RF cetirizine [Zyrtec] 10 mg tablet 10 mg PO DAILY PRN (Reason: seasonal allergies) atorvastatin [Lipitor] 20 mg Tablet 20 mg PO QAM aspirin 81 mg Tablet,Delayed Release (Dr/Ec) 81 mg PO QAM omeprazole 40 mg capsule,delayed release(DR/EC) 40 mg PO QAM levothyroxine 50 mcg tablet 50 mcg PO QAM clopidogrel [Plavix] 75 mg Tablet 75 mg PO QAM fluoxetine [Prozac] 40 mg capsule 40 mg PO QAM Discharge Orders: Discharge Order (Routine); Ordered 11/04/22 Ordered By: Karrie Gutiérrez Admission Data Admit Date/Time: 11/03/22 08:57 Attending Provider: Khoa Lane Admit Provider: Khoa Lane Primary Care Provider: Clara Weathers Other Providers: Tom Berumen ; Joey Love ; Geronimo Baires ; Eliu High ; Khai Rider ; Adan Mendez ; Rey Can ; Gamaliel Godoy ; Judith West
== END 2022-11-04 11:07 | disposition home or self-care (01) | DRG 36 ==
LOC: ASU 08:03 → 1E 08:57
PROC: EV.TCAR (2022-11-03 10:10)

== ENCOUNTER 2022-11-17 11:01 | Inpatient (IN) ==
[2022-11-17] MEDS ORDERED: SODIUM CHLORIDE 0.9% 1000ML 1,000 ML IV STA (11:10)
--- NOTE | 2022-11-17 11:19 | Emergency Department Note ---
Impression & Plan Acute lower GI bleeding ADMIT ED Provider Note HPI: The patient is a 77-year-old female with history of carotid artery stenosis, status post right-sided endarterectomy on 11/03, currently on aspirin and Plavix, presents the emergency department with her friend at the bedside over concern for rectal bleeding over the past week. Patient states that she was in [place] last week and had 3 days where she had blood per rectum with her bowel movements. She states this resolved and then began again yesterday with lesser volume. Patient denies any abdominal pain, denies any vomiting. On arrival here to the ED the patient appears well, she states she has had a sore throat and raspy voice since her surgery but otherwise feels that she has been recovering well. On arrival here to the ED the patient is hemodynamically stable. ROS: - Per HPI *Outpatient medications and allergy history reviewed. *Pertinent external medical records reviewed. PE: General: Alert HEENT: Normocephalic, trachea midline Eyes: Extraocular eye movement is intact, no scleral erythema Pulmonary: Clear to auscultation bilaterally, no wheezing Cardio: Regular rate and rhythm GI: Abdomen is soft to palpation, rectal exam performed with female RN at the bedside shows evidence of nonbleeding external hemorrhoids, occult stool testing is positive : No suprapubic tenderness MSK: No evidence of trauma or malformation of the extremities, no edema Skin: No evidence of rash Neuro: Alert, no focal deficits Psychiatric: Cooperative playground monitor: (As interpreted by myself): - An order was placed for continuous cardiac monitoring - Patient was noted to be in sinus rhythm with a rate of 80 Interventions provided in ED: -IV Protonix bolus and drip Differential Diagnosis: Lower gastrointestinal bleeding on antiplatelet therapy, viral gastroenteritis, acute colitis, diverticulitis flare, amongst other potential pathologies. Medical Decision Making: Patient presented to the emergency department with a chief complaint of blood per rectum. On arrival here to the ED she overall appears well, she is hemodynamically stable. IV was established and lab work obtained, patient was maintained on monitor technician. Lab work shows evidence of mild anemia with hemoglobin of 10.2 (previous level on 10/30 showed hemoglobin greater than 12). No leukocytosis, platelet count is within normal limits, CMP obtained shows no critical findings, no acute kidney injury, BUN is within normal limits. Bilirubin slightly elevated at 1.1, patient has no right upper quadrant tenderness. Patient's abdomen exam is reassuring therefore CT imaging of the abdomen and pelvis was not ordered. Patient was started on IV Protonix drip and bolus. Given the patient's anemia a nd the fact that she is on dual antiplatelet therapy with occult positive stool, I feel that admission is warranted. Case was discussed with the on-call hospitalist, Dr. Cano, who accepted the patient for admission. Patient was also discussed with the continuous improvement director midlevel provider for [facility] roenterology, states that they are not typically involved with unassigned patients and recommended consulting [facility] gastroenterology for further management. I did attempt to contact Dr. Khan however he was in the operating room and therefore routine consultation will be placed for gastroenterology to see the patient once admitted to the hospital given her hemodynamic stability. Patient and her friend at the bedside are in agreement to the above plan, patient was placed for admission in stable condition. Consultants: -Hospitalist service, Dr. Cano Disposition discussion held by myself with: -Patient and friend at the bedside Diagnosis: 1. Lower gastrointestinal bleed, on dual antiplatelet therapy 2. Anemia, acute, secondary to lower GI bleeding Disposition: Admission Shakir Kelly DO Emergency Medicine Past Med/Surg History Medical History (Updated 11/17/22 @ 15:22 by Shakir Kelly DO) Anxiety Carotid artery stenosis 80-90% stenosis R ICA Gastric reflux History of anesthesia reaction hypotension History of COVID-19 Spring 2021, sore throat and stomach cramps, cough-denies hospitalization- symptoms resolved Hypertension controlled, stable per pt Hypothyroidism Internal carotid artery stent present Stroke history, found on the brain MRI. no current deficits. Transient ischemic attack (TIA) ~3 months ago, does not follow with neurology. Surgical History History of colonoscopy S/P partial hysterectomy S/P wisdom tooth extraction Family History Mother Diabetes Aneurysm Sister Ovarian cancer Other No family history of adverse response to anesthesia Denies family history of Prostate cancer Myocardial infarction Breast cancer Colorectal cancer Hypertension Social History (Updated 11/07/22 @ 10:29 by ANDREW Cruz) Smoking Status: Former smoker Tobacco Type: Cigarettes Age Started Using Tobacco: 11; Age Quit Using Tobacco: 69; packs per day: 0.5; Second Hand Exposure: Yes; Do You Dip or Chew Tobacco: No; Hx Alcohol Use: No Hx Substance Use: No Preferred Language: Sinhala Communication Ability: Effective Visual Impairment: No Limitations Hearing Ability: Normal Nondestructive Tester Required: No Beliefs That Will Affect Care: None marital status: / Current Living Situation: Alone current occupational status: retired current occupation: used to work as an medication assistant of a retail store Feels Safe at Home: Yes Childhood Exposure to Second-Hand Smoke: Yes Diet: regular Diet Comment: regular Dental Care, Regularly: No Physical Activity Frequency: 3-4 Times per Week Seatbelt Use: always Sunscreen Use: No Assistive Devices: Denture - Upper, Denture - Lower and Glasses Allergies Allergies Allergy/AdvReac Type Severity Reaction Status Date / Time codeine AdvReac Severe Headache Verified 11/17/22 14:13 Home Meds Home Medications Medication Instructions Recorded Confirmed cetirizine 10 mg tablet (Zyrtec) 10 mg PO DAILY PRN seasonal 09/05/22 11/17/22 allergies aspirin 81 mg tablet,delayed 81 mg PO QAM 10/28/22 11/17/22 release atorvastatin 20 mg tablet (Lipitor) 20 mg PO QAM 10/28/22 11/17/22 clopidogrel 75 mg tablet (Plavix) 75 mg PO QAM 10/28/22 11/17/22 levothyroxine 50 mcg tablet 50 mcg PO QAM 10/28/22 11/17/22 omeprazole 40 mg capsule,delayed 40 mg PO QAM 10/28/22 11/17/22 release fluoxetine 40 mg capsule (Prozac) 40 mg PO QAM 11/03/22 11/17/22 Previous Rx's Medication Instructions Recorded triamterene 37.5 1 cap PO QAM #90 caps 10/31/22 mg-hydrochlorothiazide 25 mg capsule tramadol 50 mg tablet 50 mg PO BID PRN pain #10 tabs 11/04/22 Results & Data (ED) Vital Signs Vital Signs - 24 hr 11/17/22 11:07 11/17/22 11:21 11/17/22 12:44 Temperature 36.4 C L Temperature Source Temporal Artery Scan Pulse Rate 72 77 Pulse Rate from SpO2 Sensor Respiratory Rate 16 Blood Pressure 146/61 H Blood Pressure Mean 89 Blood Pressure Position Sitting Pulse Oximetry 100 96 Oxygen Delivery Method Room Air Room Air Sepsis Recent Fever Within 48 Hours No Sepsis New/Unexplained Change in Mental Status No Sepsis Action Taken by Nursing No Action Required 11/17/22 12:43 11/17/22 13:00 11/17/22 13:00 Temperature Temperature Source Pulse Rate 75 75 Pulse Rate from SpO2 Sensor 75 75 Respiratory Rate 20 19 Blood Pressure 139/78 Blood Pressure Mean 87 Blood Pressure Position Pulse Oximetry 97 98 Oxygen Delivery Method Sepsis Recent Fever Within 48 Hours Sepsis New/Unexplained Change in Mental Status Sepsis Action Taken by Nursing 11/17/22 13:30 11/17/22 13:30 11/17/22 14:00 Temperature Temperature Source Pulse Rate 76 80 Pulse Rate from SpO2 Sensor 76 76 Respiratory Rate 21 17 Blood Pressure 174/84 H Blood Pressure Mean 104 Blood Pressure Position Pulse Oximetry 96 94 Oxygen Delivery Method Sepsis Recent Fever Within 48 Hours Sepsis New/Unexplained Change in Mental Status Sepsis Action Taken by Nursing 11/17/22 14:01 11/17/22 14:01 11/17/22 14:30 Temperature Temperature Source Pulse Rate 76 75 Pulse Rate from SpO2 Sensor 76 75 Respiratory Rate 16 19 Blood Pressure 167/87 H Blood Pressure Mean 103 Blood Pressure Position Pulse Oximetry 99 96 Oxygen Delivery Method Sepsis Recent Fever Within 48 Hours Sepsis New/Unexplained Change in Mental Status Sepsis Action Taken by Nursing Laboratory Data 11/17/22 11:30 11/17/22 11:30 Lab Results 11/17/22 11/17/22 11/17/22 Range/Units 11:28 11:30 11:30 WBC 8.87 (4.8-10.8) K/ul RBC 3.37 L (4.20-5.40) M/uL Hgb 10.2 L (12.0-16.0) g/dl Hct 31.7 L (37.0-47.0) % MCV 94.1 (80.0-100.0) fL MCH 30.3 (25.0-34.0) pg MCHC 32.2 (32.0-36.0) g/dL RDW Std Deviation 51.1 H (36.4-46.3) fL RDW Coeff of Shira 14.9 H (11.5-14.5) % Plt Count 202 (130-400) K/uL MPV 10.6 (9.4-12.4) fL Immature Gran % (Auto) 1.0 % Neut % (Auto) 67.5 % Lymph % (Auto) 17.7 % [place] % (Auto) 9.9 % Eos % (Auto) 2.7 % Baso % (Auto) 1.2 % Neut # (Auto) 5.98 (1.40-6.50) K/uL Lymph # (Auto) 1.57 (1.2-3.4) K/uL [place] # (Auto) 0.88 H (0.11-0.59) K/uL Eos # (Auto) 0.24 (0-0.50) K/uL Baso # (Auto) 0.11 (0-0.2) K/uL Immature Gran # (Auto) 0.09 (0.01-0.20) K/uL PT 11.5 (9.0-12.0) Seconds INR 1.1 (0.9-1.1) Sodium (136-145) mmol/L Potassium (3.5-5.1) mmol/L Chloride (98-107) mmol/L Carbon Dioxide (21-32) mmol/L Anion Gap (3-11) BUN (6-23) mg/dl Creatinine (0.6-1.2) mg/dl Est Cr Clr Drug Dosing ml/min Est GFR ( Amer) ml/min Est GFR (Non-Af Amer) ml/min BUN/Creatinine Ratio (10-20) Glucose (70-99(Fasting)) mg/dl Calcium (8.6-10.3) mg/dl Total Bilirubin (0.2-1.0) mg/dl AST (13-39) U/L ALT (7-52) U/L Alkaline Phosphatase (34-104) U/L Total Protein (6.0-8.3) gm/dl Albumin (3.4-5.0) gm/dl Globulin (2.5-4.0) gm/dl Albumin/Globulin Ratio (0.9-2) Lipase (11-82) U/L SARS-CoV-2, RNA, NAAT (NEGATIVE) Blood Type A Positive Antibody Screen NEGATIVE 11/17/22 11/17/22 Range/Units 11:30 13:05 WBC (4.8-10.8) K/ul RBC (4.20-5.40) M/uL Hgb (12.0-16.0) g/dl Hct (37.0-47.0) % MCV (80.0-100.0) fL MCH (25.0-34.0) pg MCHC (32.0-36.0) g/dL RDW Std Deviation (36.4-46.3) fL RDW Coeff of Shira (11.5-14.5) % Plt Count (130-400) K/uL MPV (9.4-12.4) fL Immature Gran % (Auto) % Neut % (Auto) % Lymph % (Auto) % [place] % (Auto) % Eos % (Auto) % Baso % (Auto) % Neut # (Auto) (1.40-6.50) K/uL Lymph # (Auto) (1.2-3.4) K/uL [place] # (Auto) (0.11-0.59) K/uL Eos # (Auto) (0-0.50) K/uL Baso # (Auto) (0-0.2) K/uL Immature Gran # (Auto) (0.01-0.20) K/uL PT (9.0-12.0) Seconds INR (0.9-1.1) Sodium 139 (136-145) mmol/L Potassium 3.7 (3.5-5.1) mmol/L Chloride 107 (98-107) mmol/L Carbon Dioxide 23 (21-32) mmol/L Anion Gap 9 (3-11) BUN 21 (6-23) mg/dl Creatinine 0.89 (0.6-1.2) mg/dl Est Cr Clr Drug Dosing 48.7 ml/min Est GFR ( Amer) 71.9 ml/min Est GFR (Non-Af Amer) 62.1 ml/min BUN/Creatinine Ratio 23.6 H (10-20) Glucose 154 H (70-99(Fasting)) mg/dl Calcium 9.5 (8.6-10.3) mg/dl Total Bilirubin 1.1 H (0.2-1.0) mg/dl AST 40 H (13-39) U/L ALT 21 (7-52) U/L Alkaline Phosphatase 144 H (34-104) U/L Total Protein 7.4 (6.0-8.3) gm/dl Albumin 3.8 (3.4-5.0) gm/dl Globulin 3.6 (2.5-4.0) gm/dl Albumin/Globulin Ratio 1.1 (0.9-2) Lipase 26 (11-82) U/L SARS-CoV-2, RNA, NAAT NEGATIVE (NEGATIVE) Blood Type Antibody Screen Administered Medications Pantoprazole Sodium 40 mg/ (Dextrose) 100 mls @ 20 mls/hr IV Q5H BROOKE Stop: 12/17/22 12:44 Last Admin: 11/17/22 14:40 Dose: 8 mg/hr, 20 mls/hr Documented By: AM Discontinued Medications Sodium Chloride (Nss 1000ml) 1,000 mls @ 999 mls/hr IV .Q1H1M STA Stop: 11/17/22 12:10 Last Infusion: 11/17/22 13:56 Dose: 0 mls/hr Documented By: Admin: 11/17/22 11:59 Dose: 999 mls/hr Documented By: AM Pantoprazole Sodium 80 mg/ (Dextrose) 120 mls @ 480 mls/hr IV ONE STA Stop: 11/17/22 12:10 Last Infusion: 11/17/22 12:48 Dose: 0 mls/hr Documented By: Admin: 11/17/22 12:11 Dose: 480 mls/hr Documented By: AM Ioversol (Optiray 320 100ml) 90 ml IV ONCE ONE Stop: 11/17/22 15:13 Last Admin: 11/17/22 15:13 Dose: 90 ml Documented By: AW Imaging Data Radiologist's Impression: Chest X-Ray 11/17/22 14:07 SINGLE VIEW CHEST CLINICAL HISTORY: Dyspnea FINDINGS: An AP, portable, upright chest radiograph is compared to study dated 10/30/2022. The examination is degraded by portable technique and apical lordotic positioning. The heart is enlarged. The pulmonary vasculature is noncongested. Chronic interstitial thickening is similar to previous. There is bibasilar scarring/atelectasis. The lungs and pleural spaces are otherwise clear. No pneumothorax is seen. The skeletal structures are osteopenic. The bony thorax is grossly intact. IMPRESSION: Cardiomegaly with no acute cardiopulmonary abnormality. ACT 112: Negative or not required by law. Electronically signed by: Tom Junior M.D. 11/17/2022 2:43 PM Discharge Plan Visit Data Chief Complaint: Rectal Bleed Stated Complaint: SURG 2WKS AGO, RECTAL BLEED, CANT SPEAK ED Provider: Shakir Kelly Discharge Problem: Acute lower GI bleeding Forms Stand Alone Forms: My [facility] Prescriptions Prescriptions: No Action triamterene-hydrochlorothiazid 37.5-25 mg capsule 1 cap PO QAM Qty: 90 1RF cetirizine [Zyrtec] 10 mg tablet 10 mg PO DAILY PRN (Reason: seasonal allergies) atorvastatin [Lipitor] 20 mg Tablet 20 mg PO QAM aspirin 81 mg Tablet,Delayed Release (Dr/Ec) 81 mg PO QAM omeprazole 40 mg capsule,delayed release(DR/EC) 40 mg PO QAM levothyroxine 50 mcg tablet 50 mcg PO QAM clopidogrel [Plavix] 75 mg Tablet 75 mg PO QAM fluoxetine [Prozac] 40 mg capsule 40 mg PO QAM tramadol 50 mg tablet 50 mg PO BID PRN (Reason: pain) Qty: 10 0RF Referrals Referrals: Clara Weathers MD [Primary Care Provider] -
[2022-11-17] MEDS ORDERED: PANTOprazole 80 MG in DEXTROSE 5% 100 ML IV STA (11:56)
[2022-11-17 12:04] LABS: Basophils # (auto) 0.11 K/uL (0-0.2); Basophils % (auto) 1.2 %; Eosinophils # (auto) 0.24 K/uL (0-0.50); Eosinophils % (auto) 2.7 %; Hematocrit (blood only) 31.7 % (37.0-47.0); Hemoglobin 10.2 g/dl (12.0-16.0); Immature Granulocytes # (auto) 0.09 K/uL (0.01-0.20); Lymphocytes # (auto) 1.57 K/uL (1.2-3.4); Lymphocytes % (auto) 17.7 %; Mean Corpuscular Hemoglobin 30.3 pg (25.0-34.0); Mean Corpuscular Hgb Conc 32.2 g/dL (32.0-36.0); Mean Corpuscular Volume 94.1 fL (80.0-100.0); Mean Platelet Volume 10.6 fL (9.4-12.4); Monocytes # (auto) 0.88 K/uL (0.11-0.59); Monocytes % (auto) 9.9 %; Neutrophils # (auto) 5.98 K/uL (1.40-6.50); Neutrophils % (auto) 67.5 %; Platelet Count 202 K/uL (130-400); RDW Coefficient of Variation 14.9 % (11.5-14.5); RDW Standard Deviation 51.1 fL (36.4-46.3); Red Blood Count 3.37 M/uL (4.20-5.40); White Blood Count 8.87 K/ul (4.8-10.8)
[2022-11-17 12:18] LABS: Albumin Globulin Ratio 1.1 (0.9-2); Albumin Level 3.8 gm/dl (3.4-5.0); BUN Creatinine Ratio 23.6 (10-20); Bilirubin,Total 1.1 mg/dl (0.2-1.0); Calcium 9.5 mg/dl (8.6-10.3); Creatinine Clr Calc Pharmacy 48.7 ml/min; Est GFR (African American) 71.9 ml/min; Est GFR (Non-African American) 62.1 ml/min; Globulin 3.6 gm/dl (2.5-4.0); Potassium 3.7 mmol/L (3.5-5.1); Total Protein 7.4 gm/dl (6.0-8.3)
[2022-11-17 12:33] LABS: INR 1.1 (0.9-1.1); Prothrombin Time 11.5 Seconds (9.0-12.0)
--- NOTE | 2022-11-17 14:04 | History & Physical Report ---
Date of Service November 17, 2022 Assessment & Plan (1) Acute GI bleeding: Plan: Recommend EGD +/- colonoscopy due to need to restart aspirin and clopidogrel given recent carotid stent - consult gastroenterology Will initially hold aspirin and clopidogrel as she already took them today but they should be restarted as soon as risk of bleeding is reduced or deemed less than risk of stroke. Given associated lower abdominal pain will obtain CT A/P (2) Dysphonia: Plan: s/p carotid revasculization - consider ENT follow up (3) Internal carotid artery stent present: (4) Gastric reflux: (5) Hypothyroidism: Plan: TSH WNL in May 2022 Continue levothyroxine (6) Hypertension: Plan: Holding anti-hypertensives in setting of acute bleed (7) Anxiety: Plan: Continue fluoxetine Plan VTE Prophylaxis - chemical contraindicated Diet - NPO Disposition - observation to med/surg Admission and Anticipated Discharge Date Admission Date: November 17, 2022 History of Present Illness Chief Complaint: Melana and bright red blood in stool Primary Care Provider: Clara Weathers MD Suri Kim is a 77 year old female who presents to the ER due to 3 days of black stool and bright red blood in stool. She recently underwent right transcarotid artery revascularization via left femoral vein performed on November 03, 2022. Since then she reports having lower abdominal pain. No radiation in abdominal pain. Constant since surgery. No worse with eating. Worse with position. She was out of town following this therefore did not return to the ER until today. Associated 2 episodes of vomiting (once today) with mucus like substance. She denies any prior gastric ulcers although does note a history of GERD which is under control with omeprazole. Allergies Allergy/AdvReac Type Severity Reaction Status Date / Time codeine AdvReac Severe Headache Verified 11/17/22 14:13 Home Medications Medication Instructions Recorded Confirmed Type cetirizine 10 mg tablet (Zyrtec) 10 mg PO DAILY PRN seasonal 09/05/22 11/17/22 History allergies aspirin 81 mg tablet,delayed 81 mg PO QAM 10/28/22 11/17/22 History release atorvastatin 20 mg tablet (Lipitor) 20 mg PO QAM 10/28/22 11/17/22 History clopidogrel 75 mg tablet (Plavix) 75 mg PO QAM 10/28/22 11/17/22 History levothyroxine 50 mcg tablet 50 mcg PO QAM 10/28/22 11/17/22 History omeprazole 40 mg capsule,delayed 40 mg PO QAM 10/28/22 11/17/22 History release triamterene 37.5 1 cap PO QAM #90 caps 10/31/22 11/17/22 Rx mg-hydrochlorothiazide 25 mg capsule fluoxetine 40 mg capsule (Prozac) 40 mg PO QAM 11/03/22 11/17/22 History tramadol 50 mg tablet 50 mg PO BID PRN pain #10 tabs 11/04/22 11/17/22 Rx Past Med/Surg History Medical History (Updated 11/17/22 @ 15:22 by Shakir Kelly, ) Anxiety Carotid artery stenosis 80-90% stenosis R ICA Gastric reflux History of anesthesia reaction hypotension History of COVID-spring, sore throat and stomach cramps, cough-denies hospitalization- symptoms resolved Hypertension controlled, stable per pt Hypothyroidism Internal carotid artery stent present Stroke history, found on the brain MRI. no current deficits. Transient ischemic attack (TIA) ~3 months ago, does not follow with neurology. Surgical History History of colonoscopy S/P partial hysterectomy S/P wisdom tooth extraction Family History Mother Diabetes Aneurysm Sister Ovarian cancer Other No family history of adverse response to anesthesia Denies family history of Prostate cancer Myocardial infarction Breast cancer Colorectal cancer Hypertension Social History (Updated 11/07/22 @ 10:29 by ANDREW Cruz) Smoking Status: Former smoker Tobacco Type: Cigarettes Age Started Using Tobacco: 11; Age Quit Using Tobacco: 69; packs per day: 0.5; Smoking End Date: 2014; Second Hand Exposure: No; Do You Dip or Chew Tobacco: No; Tobacco Cessation Education Requested by Patient: No Hx Alcohol Use: Yes Alcohol type: wine Alcohol Intake Frequency: Monthly or Less Hx Substance Use: No Preferred Language: South Sudanese Communication Ability: Effective Visual Impairment: No Limitations Hearing Ability: Normal Maintenance Worker Swimming Pool Required: No Beliefs That Will Affect Care: None marital status: / Current Living Situation: Alone current occupational status: retired 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 Other Information That Helps Us Care for You: No Feels Safe at Home: Yes Safety Concerns: Feels Safe At This Time Childhood Exposure to Second-Hand Smoke: Yes Diet: regular Diet Comment: regular Dental Care, Regularly: No Physical Activity Frequency: 3-4 Times per Week Seatbelt Use: always Sunscreen Use: No Assistive Devices: Denture - Upper, Denture - Lower and Glasses Review of Systems Review of Systems: All systems reviewed & are unremarkable except as noted in HPI & below Physical Exam Constitutional: WD/WN, vitals as above Eyes: PERRL, conjunctivae normal, anicteric sclerae ENMT: Mouth: + dry oral mucous membranes Respiratory: normal respiratory effort, lungs clear to auscultation Cardiovascular: RRR, no murmur, no edema Gastrointestinal (Abdomen): Inspection/Auscultation: abdomen normal to inspection; abdomen not distended Percussion/Palpation: + abdomen tender (lower abdomen) and abdomen soft; no guarding and abdomen not rigid Musculoskeletal: no cyanosis or clubbing, extremities motor strength 5/5 Skin: no rashes, warm and dry Neurologic: moves all extremities and awake; not confused Psychiatric: A+Ox3, euthymic affect Results & Data Results & Data Vital Signs (Past 12 Hours) Vital Signs Temp Pulse Resp BP Pulse Ox O2 Del Method 11/17/22 12:44 77 11/17/22 11:21 96 Room Air 11/17/22 11:07 36.4 C L 72 16 146/61 H 100 Room Air Medications Administered ER Medications Given: NSS 1L bolus Pantoprazole 80mg IV bolus and 5mg/hr drip Code Status & VTE Plan Code Status Full VTE Prophylaxis Plan VTE Prophylaxis will be ordered: No PG Care Time/CCT Total # of Minutes Spent Total Time Spent with Patient: Total time spent is greater than 50% in coordination of care (as documented) at patient's floor/unit and/or counseling patient: Coding Level of Care Code 60140 INT INP/OBS CARE 3/75MIN Diagnoses Acute GI bleeding K92.2 Dysphonia R49.0 Internal carotid artery stent present Z95.828 Gastric reflux K21.9 Hypothyroidism E03.9 Hypertension I10 Anxiety F41.9
[2022-11-17] MEDS: PANTOprazole 40 MG in DEXTROSE 5% 100 ML IV SCH ×3 (14:40→23:16)
--- NOTE | 2022-11-17 14:45 | XRay Report ---
SINGLE VIEW CHEST CLINICAL HISTORY: Dyspnea FINDINGS: An AP, portable, upright chest radiograph is compared to study dated 10/30/2022. The examina tion is degraded by portable technique and apical lordotic positioning. The heart is enlarged. The pu lmonary vasculature is noncongested. Chronic interstitial thickening is similar to previous. There is bibasilar scarring/atelectasis. The lungs and pleural spaces are otherwise clear. No pneumothorax is seen. The skeletal structures are osteopenic. The bony thorax is grossly intact. IMPRESSION: Cardiomegaly with no acute cardiopulmonary abnormality. ACT 112: Negative or not required by law. Electronically signed by: Tom Junior M.D. 11/17/2022 2:43 PM
[2022-11-17] MEDS ORDERED: OPTIRAY 320 100ml IV ONE (15:12)
[2022-11-17 15:25] LABS: Appearance Urine Clear (Clear); Bacteria Urine Automated Negative (Negative); Bilirubin Urine Negative (Negative); Blood Urine Negative (Negative); Color Urine Yellow; Epithelial Cell Urine Auto >30 /lpf (0-5); Glucose Urine UA Negative (Negative); Ketones Urine Negative (Negative); Leukocyte Esterase Urine Trace (Negative); Nitrite Urine Negative (Negative); Protein Urine Negative (Negative); RBC Urine Automated 0-4 /hpf (0-4); Specific Gravity Urine 1.015 (1.000-1.030); Urobilinogen Urine Negative (Negative)
--- NOTE | 2022-11-17 15:32 | CT Scan Report ---
CT abd pelvis IV con only CLINICAL HISTORY: GI bleed, lower abdominal pain since carotid stent TECHNIQUE: Helical axial images of the abdomen and pelvis were obtained and displayed. Automated dose lowering techniques and/or adjustment according to patient size were utilized for this exam. This e xam was performed with intravenous contrast. CT DOSE: 1360.34 mGy.cm COMPARISON: None available at the time of this dictation. FINDINGS: Lower chest: No acute abnormality. Liver: Nodular contour of the liver is seen compatible with cirrhosis. Gallbladder and biliary tree: No calcified gallstones. Normal caliber wall. No intra- or extrahepatic biliary ductal dilation. Pancreas: Unremarkable, no focal lesions. Spleen: Splenomegaly is noted, the spleen measures 14.5 cm in craniocaudal dimension. Adrenals: Unremarkable. Kidneys and ureters: Unremarkable. Bladder: Limited evaluation due to underdistention. There is a tiny focus of gas, correlation with re cent rotation is recommended. Reproductive organs: Patient is status post hysterectomy. Bowel: The appendix is normal. Lymph nodes Retroperitoneal: Subcentimeter lymph nodes are noted. Pelvic: Unremarkable. Mesenteric: Unremarkable. Peritoneum: Normal. Vessels: Atherosclerotic calcifications are seen. There is a tiny infrarenal aortic aneurysm measurin g 21 mm in diameter. 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 Abdominal wall: Left fat containing inguinal hernia. Bones: Degenerative changes in the visualized spine. IMPRESSION: 1. No acute abnormalities are seen in particular no evidence of retroperitoneal hematoma. 2. Cirrhosis with stigmata of pulmonary hypertension including splenomegaly and varices. ACT 112: Negative or not required by law. Electronically signed by: Dequan Hennessy M.D. 11/17/2022 3:30 PM
[2022-11-17] MEDS ORDERED: OCTREOTIDE ACETATE 50 MCG in SYRINGE 9.5 ML IV STA (17:25)
[2022-11-17] MEDS ORDERED: CETIRIZINE HCL 10 MG TABLET PO PRN (17:25)
[2022-11-17] MEDS ORDERED: STAT IV STA (17:25)
[2022-11-17] MEDS ORDERED: LACTATED RINGER'S 1,000 ML IV SCH (17:30)
[2022-11-17] MEDS: cefTRIAXone SODIUM 2,000 MG in DEXTROSE 5% 50 ML IV SCH (18:11)
[2022-11-17] MEDS: OCTREOTIDE ACETATE 500 MCG in DEXTROSE 5% 100 ML IV SCH (18:11)
[2022-11-17 18:27] LABS: Hematocrit (blood only) 27.7 % (37.0-47.0); Hemoglobin 9.2 g/dl (12.0-16.0); Mean Corpuscular Hemoglobin 30.8 pg (25.0-34.0); Mean Corpuscular Hgb Conc 33.2 g/dL (32.0-36.0); Mean Corpuscular Volume 92.6 fL (80.0-100.0); Mean Platelet Volume 10.5 fL (9.4-12.4); Platelet Count 154 K/uL (130-400); RDW Coefficient of Variation 14.6 % (11.5-14.5); RDW Standard Deviation 49.6 fL (36.4-46.3); Red Blood Count 2.99 M/uL (4.20-5.40); White Blood Count 6.98 K/ul (4.8-10.8)
--- NOTE | 2022-11-17 19:49 | Communication Note ---
Date of Service: November 17, 2022 CT A/P showing cirrhosis with stigmata of pulmonary hypertension including splenomegaly and varices. INR WNL. Octreotide bolus and drip and ceftriaxone 2g IV added to cover for variceal bleeding. Hgb 10.2 -> 9.2; suspect mostly IV fluid related. Transfuse to aim Hgb > 8 in setting of acute hemorrhage.
[2022-11-17] MEDS: PLASMA-LYTE A 1,000 ML IV SCH (20:48)
[2022-11-18 00:27] LABS: Hematocrit (blood only) 25.3 % (37.0-47.0); Hemoglobin 8.6 g/dl (12.0-16.0); Mean Corpuscular Hemoglobin 31.3 pg (25.0-34.0); Mean Platelet Volume 10.8 fL (9.4-12.4); Platelet Count 139 K/uL (130-400); RDW Coefficient of Variation 14.8 % (11.5-14.5); RDW Standard Deviation 49.1 fL (36.4-46.3); Red Blood Count 2.75 M/uL (4.20-5.40); White Blood Count 7.03 K/ul (4.8-10.8)
[2022-11-18] MEDS: OCTREOTIDE ACETATE 500 MCG in DEXTROSE 5% 100 ML IV SCH ×2 (04:34→13:49)
[2022-11-18] MEDS: PANTOprazole 40 MG in DEXTROSE 5% 100 ML IV SCH ×2 (04:34→09:57)
[2022-11-18] MEDS: LEVOTHYROXINE SODIUM 50 MCG TABLET PO SCH (06:26)
[2022-11-18 06:38] LABS: Hematocrit (blood only) 25.2 % (37.0-47.0); Hemoglobin 8.4 g/dl (12.0-16.0); Mean Corpuscular Hemoglobin 30.7 pg (25.0-34.0); Mean Corpuscular Hgb Conc 33.3 g/dL (32.0-36.0); Mean Platelet Volume 10.6 fL (9.4-12.4); Platelet Count 138 K/uL (130-400); RDW Coefficient of Variation 14.7 % (11.5-14.5); RDW Standard Deviation 48.9 fL (36.4-46.3); Red Blood Count 2.74 M/uL (4.20-5.40); White Blood Count 6.33 K/ul (4.8-10.8)
[2022-11-18 06:50] LABS: Albumin Globulin Ratio 1.2 (0.9-2); Albumin Level 3.2 gm/dl (3.4-5.0); BUN Creatinine Ratio 22.2 (10-20); Bilirubin,Total 0.8 mg/dl (0.2-1.0); Calcium 8.2 mg/dl (8.6-10.3); Creatinine Clr Calc Pharmacy 60.2 ml/min; Est GFR (Non-African American) 80.2 ml/min; Globulin 2.6 gm/dl (2.5-4.0); Potassium 3.5 mmol/L (3.5-5.1); Total Protein 5.8 gm/dl (6.0-8.3)
--- NOTE | 2022-11-18 09:08 | Gastrointestinal Consultation ---
Date of Consultation November 18, 2022 Assessment & Plan (1) Acute GI bleeding: (2) Symptomatic anemia: (3) Cirrhosis: Plan New dx of cirrhosis by CT. Diff dx: cardiogenic vs MCCLELLAN vs cryptogenic vs other. Admitted with acute GIB in the setting of ASA/Plavix use s/p right TCAR on . Diff dx: bleeding varices vs PUD vs AVM vs other. Plan as follows: -NPO for now. -Continue Octreotide and PPI ggts as ordered. -EGD with Dr. Khan today for further evaluation. -Transfuse PRN per hospital protocol. -Continue supportive care. Oupt GI follow up for cirrhosis mngt. -Further recommendations pending results of testing. Thank you for allowing us to participate in the care of this patient. If you have any questions or concerns, please do not hesitate to contact us. History of Present Illness Reason for Consultation: Acute GIB Requesting Physician: Dr. Cano Attending Physician: Padilla Leon History of Present Illness Patient is a 77 y.o. female with a history of GERD, TIA, and right carotid artery stenosis s/p TCAR by Dr. Kulkarni on 11/03/22. She has been on ASA/Plavix since the surgery due to stent placement. The patient states she began having rectal bleeding several days ago and even had an episode of incontinence of blood while at [facility]. Denies any associated abdominal pain or cramping. She is unable to quantify stool consistency or frequency. No nausea or vomiting although she states she "spit up phlegm" yesterday afternoon. Denies any dizziness, chest pain or palpitations. Mild shortness of breath. No syncope. H&H on 10/30 was noted to be 12.7/38.2 and was down to 8.4/25.2 today. She did undergo a diagnostic CT a/p yesterday which demonstrated hepatic nodularity c/w cirrhosis, splenomegaly and varices. Due to this, she was placed on NPO status and started on both Octreotide and Pantoprazole ggts. Allergies Allergy/AdvReac Type Severity Reaction Status Date / Time codeine AdvReac Severe Headache Verified 11/17/22 14:13 Home Medications Medication Instructions Recorded Confirmed Type cetirizine 10 mg tablet (Zyrtec) 10 mg PO DAILY PRN seasonal 09/05/22 11/17/22 History allergies aspirin 81 mg tablet,delayed 81 mg PO QAM 10/28/22 11/17/22 History release atorvastatin 20 mg tablet (Lipitor) 20 mg PO QAM 10/28/22 11/17/22 History clopidogrel 75 mg tablet (Plavix) 75 mg PO QAM 10/28/22 11/17/22 History levothyroxine 50 mcg tablet 50 mcg PO QAM 10/28/22 11/17/22 History omeprazole 40 mg capsule,delayed 40 mg PO QAM 10/28/22 11/17/22 History release triamterene 37.5 1 cap PO QAM #90 caps 10/31/22 11/17/22 Rx mg-hydrochlorothiazide 25 mg capsule fluoxetine 40 mg capsule (Prozac) 40 mg PO QAM 11/03/22 11/17/22 History tramadol 50 mg tablet 50 mg PO BID PRN pain #10 tabs 11/04/22 11/17/22 Rx Patient History Medical History Anxiety Carotid artery stenosis 80-90% stenosis R ICA Gastric reflux History of anesthesia reaction hypotension History of COVID-spring, sore throat and stomach cramps, cough-denies hospitalization- symptoms resolved Hypertension controlled, stable per pt Hypothyroidism Internal carotid artery stent present Stroke history, found on the brain MRI. no current deficits. Transient ischemic attack (TIA) ~3 months ago, does not follow with neurology. Surgical History History of colonoscopy S/P partial hysterectomy S/P wisdom tooth extraction Family History Mother Diabetes Aneurysm Sister Ovarian cancer Other No family history of adverse response to anesthesia Denies family history of Prostate cancer Myocardial infarction Breast cancer Colorectal cancer Hypertension Social History Smoking Status: Former smoker Tobacco Type: Cigarettes Age Started Using Tobacco: 11; Age Quit Using Tobacco: 69; packs per day: 0.5; Smoking End Date: 2014; Second Hand Exposure: No; Do You Dip or Chew Tobacco: No; Tobacco Cessation Education Requested by Patient: No Hx Alcohol Use: Yes Alcohol type: wine Alcohol Intake Frequency: Monthly or Less Hx Substance Use: No Preferred Language: Tamaz[place] Communication Ability: Effective Visual Impairment: No Limitations Hearing Ability: Normal Ship[employer] Required: No Beliefs That Will Affect Care: None marital status: / Current Living Situation: Alone current occupational status: retired 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 Other Information That Helps Us Care for You: No Feels Safe at Home: Yes Safety Concerns: Feels Safe At This Time Childhood Exposure to Second-Hand Smoke: Yes Diet: regular Diet Comment: regular Dental Care, Regularly: No Physical Activity Frequency: 3-4 Times per Week Seatbelt Use: always Sunscreen Use: No Assistive Devices: Denture - Upper, Denture - Lower and Glasses Review of Systems Review of Systems: All systems reviewed & are unremarkable except as noted in HPI & below Physical Exam Constitutional: WD/WN, vitals as above Eyes: EOM intact bilaterally Neck: normal appearance Respiratory: normal respiratory effort, lungs clear to auscultation Cardiovascular: Rate/Rhythm: regular rate and regular rhythm Heart Sounds: no gallop and no murmur Gastrointestinal (Abdomen): normal bowel sounds, soft, nontender, no hepatosplenomegaly Inspection/Auscultation: abdomen not distended Musculoskeletal: Extremities: no cyanosis no lower extremity edema Skin: no rashes, warm and dry Neurologic: moves all extremities Psychiatric: A+Ox3, euthymic affect Results & Data Vital Signs (Past 12 Hours) Vital Signs Temp Pulse Resp BP Pulse Ox O2 Del Method 11/18/22 07:15 Room Air 11/18/22 07:09 36.6 C 76 18 156/66 H 93 Room Air Diagnostic Findings Laboratory Results WBC 6.33 K/ul (4.8-10.8) 11/18/22 06:06 RBC 2.74 M/uL (4.20-5.40) L 11/18/22 06:06 Hgb 8.4 g/dl (12.0-16.0) L 11/18/22 06:06 Hct 25.2 % (37.0-47.0) L 11/18/22 06:06 MCV 92.0 fL (80.0-100.0) 11/18/22 06:06 MCH 30.7 pg (25.0-34.0) 11/18/22 06:06 MCHC 33.3 g/dL (32.0-36.0) 11/18/22 06:06 RDW Std Deviation 48.9 fL (36.4-46.3) H 11/18/22 06:06 RDW Coeff of Shira 14.7 % (11.5-14.5) H 11/18/22 06:06 Plt Count 138 K/uL (130-400) 11/18/22 06:06 MPV 10.6 fL (9.4-12.4) 11/18/22 06:06 Immature Gran % (Auto) 1.0 % 11/17/22 11:30 Neut % (Auto) 67.5 % 11/17/22 11:30 Lymph % (Auto) 17.7 % 11/17/22 11:30 [place] % (Auto) 9.9 % 11/17/22 11:30 Eos % (Auto) 2.7 % 11/17/22 11:30 Baso % (Auto) 1.2 % 11/17/22 11:30 Neut # (Auto) 5.98 K/uL (1.40-6.50) 11/17/22 11:30 Lymph # (Auto) 1.57 K/uL (1.2-3.4) 11/17/22 11:30 [place] # (Auto) 0.88 K/uL (0.11-0.59) H 11/17/22 11:30 Eos # (Auto) 0.24 K/uL (0-0.50) 11/17/22 11:30 Baso # (Auto) 0.11 K/uL (0-0.2) 11/17/22 11:30 Immature Gran # (Auto) 0.09 K/uL (0.01-0.20) 11/17/22 11:30 PT 11.5 Seconds (9.0-12.0) 11/17/22 11:30 INR 1.1 (0.9-1.1) 11/17/22 11:30 Sodium 139 mmol/L (136-145) 11/18/22 06:06 Potassium 3.5 mmol/L (3.5-5.1) 11/18/22 06:06 Chloride 108 mmol/L (98-107) H 11/18/22 06:06 Carbon Dioxide 23 mmol/L (21-32) 11/18/22 06:06 Anion Gap 8 (3-11) 11/18/22 06:06 BUN 16 mg/dl (6-23) 11/18/22 06:06 Creatinine 0.72 mg/dl (0.6-1.2) 11/18/22 06:06 Est Cr Clr Drug Dosing 60.2 ml/min 11/18/22 06:06 Est GFR ( Amer) 93.0 ml/min 11/18/22 06:06 Est GFR (Non-Af Amer) 80.2 ml/min 11/18/22 06:06 BUN/Creatinine Ratio 22.2 (10-20) H 11/18/22 06:06 Glucose 170 mg/dl (70-99(Fasting)) H 11/18/22 06:06 Calcium 8.2 mg/dl (8.6-10.3) L 11/18/22 06:06 Total Bilirubin 0.8 mg/dl (0.2-1.0) 11/18/22 06:06 AST 41 U/L (13-39) H 11/18/22 06:06 ALT 19 U/L (7-52) 11/18/22 06:06 Alkaline Phosphatase 112 U/L (34-104) H 11/18/22 06:06 Total Protein 5.8 gm/dl (6.0-8.3) L D 11/18/22 06:06 Albumin 3.2 gm/dl (3.4-5.0) L 11/18/22 06:06 Globulin 2.6 gm/dl (2.5-4.0) 11/18/22 06:06 Albumin/Globulin Ratio 1.2 (0.9-2) 11/18/22 06:06 Lipase 26 U/L (11-82) 11/17/22 11:30 Urine Color Yellow 11/17/22 14:40 Urine Appearance Clear (Clear) 11/17/22 14:40 Urine pH 7.0 (4.5-7.5) 11/17/22 14:40 Ur Specific [place] 1.015 (1.000-1.030) 11/17/22 14:40 Urine Protein Negative (Negative) 11/17/22 14:40 Urine Glucose (UA) Negative (Negative) 11/17/22 14:40 Urine Ketones Negative (Negative) 11/17/22 14:40 Urine Blood Negative (Negative) 11/17/22 14:40 Urine Nitrite Negative (Negative) 11/17/22 14:40 Urine Bilirubin Negative (Negative) 11/17/22 14:40 Urine Urobilinogen Negative (Negative) 11/17/22 14:40 Ur Leukocyte Esterase Trace (Negative) H 11/17/22 14:40 Urine WBC (Auto) 1-5 /hpf (0-5) 11/17/22 14:40 Urine RBC (Auto) 0-4 /hpf (0-4) 11/17/22 14:40 U Hyaline Cast (Auto) 5-10 /lpf (0-5) H 11/17/22 14:40 U Epithel Cells (Auto) >30 /lpf (0-5) H 11/17/22 14:40 Urine Bacteria (Auto) Negative (Negative) 11/17/22 14:40 SARS-CoV-2, RNA, NAAT NEGATIVE (NEGATIVE) 11/17/22 13:05 Blood Type A Positive 11/17/22 11:28 Antibody Screen NEGATIVE 11/17/22 11:28 Impressions Abdomen/Pelvis CT 11/17/22 14:04 CT abd pelvis IV con only CLINICAL HISTORY: GI bleed, lower abdominal pain since carotid stent TECHNIQUE: Helical axial images of the abdomen and pelvis were obtained and displayed. Automated dose lowering techniques and/or adjustment according to patient size were utilized for this exam. This exam was performed with intravenous contrast. CT DOSE: 1360.34 mGy.cm COMPARISON: None available at the time of this dictation. FINDINGS: Lower chest: No acute abnormality. Liver: Nodular contour of the liver is seen compatible with cirrhosis. Gallbladder and biliary tree: No calcified gallstones. Normal caliber wall. No intra- or extrahepatic biliary ductal dilation. Pancreas: Unremarkable, no focal lesions. Spleen: Splenomegaly is noted, the spleen measures 14.5 cm in craniocaudal dimension. Adrenals: Unremarkable. Kidneys and ureters: Unremarkable. Bladder: Limited evaluation due to underdistention. There is a tiny focus of gas, correlation with recent rotation is recommended. Reproductive organs: Patient is status post hysterectomy. Bowel: The appendix is normal. Lymph nodes Retroperitoneal: Subcentimeter lymph nodes are noted. Pelvic: Unremarkable. Mesenteric: Unremarkable. Peritoneum: Normal. Vessels: Atherosclerotic calcifications are seen. There is a tiny infrarenal aortic aneurysm measuring 21 mm in diameter. 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 Abdominal wall: Left fat containing inguinal hernia. Bones: Degenerative changes in the visualized spine. IMPRESSION: 1. No acute abnormalities are seen in particular no evidence of retroperitoneal hematoma. 2. Cirrhosis with stigmata of pulmonary hypertension including splenomegaly and varices. ACT 112: Negative or not required by law. Electronically signed by: Dequan Hennessy M.D. 11/17/2022 3:30 PM Chest X-Ray 11/17/22 14:07 SINGLE VIEW CHEST CLINICAL HISTORY: Dyspnea FINDINGS: An AP, portable, upright chest radiograph is compared to study dated 10/30/2022. The examination is degraded by portable technique and apical lordotic positioning. The heart is enlarged. The pulmonary vasculature is noncongested. Chronic interstitial thickening is similar to previous. There is bibasilar scarring/atelectasis. The lungs and pleural spaces are otherwise clear. No pneumothorax is seen. The skeletal structures are osteopenic. The bony thorax is grossly intact. IMPRESSION: Cardiomegaly with no acute cardiopulmonary abnormality. ACT 112: Negative or not required by law. Electronically signed by: Tom Junior M.D. 11/17/2022 2:43 PM PG Care Time/CCT Total # of Minutes Spent Total Time Spent with Patient: Total time spent is greater than 50% in coordination of care (as documented) at patient's floor/unit and/or counseling patient: Coding Level of Care Code 52686 INT INP/OBS CARE 3/75MIN Diagnoses Acute GI bleeding K92.2 Symptomatic anemia D64.9 Cirrhosis K74.60
[2022-11-18] MEDS: ATORVASTATIN 20 MG TAB PO SCH (09:09)
[2022-11-18] MEDS: FLUoxetine HCL 20 MG CAP PO SCH (09:10)
--- NOTE | 2022-11-18 09:58 | Anesthesiology Consultation ---
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 Khan - Heron Khan MD Height/Weight Height: 4 ft 11 in Weight: 83.2 kg Allergies Allergy/AdvReac Type Severity Reaction Status Date / Time codeine AdvReac Severe Headache Verified 11/17/22 14:13 Medications Home Medications Medication Instructions Recorded Confirmed Last Taken cetirizine 10 mg tablet (Zyrtec) 10 mg PO DAILY PRN seasonal 09/05/22 11/17/22 Unknown allergies aspirin 81 mg tablet,delayed 81 mg PO QAM 10/28/22 11/17/22 11/17/22 release atorvastatin 20 mg tablet (Lipitor) 20 mg PO QAM 10/28/22 11/17/22 11/17/22 clopidogrel 75 mg tablet (Plavix) 75 mg PO QAM 10/28/22 11/17/22 11/17/22 levothyroxine 50 mcg tablet 50 mcg PO QAM 10/28/22 11/17/22 11/17/22 omeprazole 40 mg capsule,delayed 40 mg PO QAM 10/28/22 11/17/22 11/17/22 release triamterene 37.5 1 cap PO QAM #90 caps 10/31/22 11/17/22 11/17/22 mg-hydrochlorothiazide 25 mg capsule fluoxetine 40 mg capsule (Prozac) 40 mg PO QAM 11/03/22 11/17/22 11/17/22 tramadol 50 mg tablet 50 mg PO BID PRN pain #10 tabs 11/04/22 11/17/22 Unknown Active Medications Generic Name Dose Route Start Last Admin Trade Name Freq PRN Reason Stop Dose Admin Atorvastatin Calcium 20 mg 11/18/22 09:00 11/18/22 09:09 Atorvastatin 20 Mg Tab PO 12/18/22 08:59 20 mg QAM BROOKE Administration Fluoxetine HCl 40 mg 11/18/22 09:00 11/18/22 09:10 Fluoxetine Hcl 20 Mg Cap PO 12/18/22 08:59 40 mg QAM BROOKE Administration Pantoprazole Sodium 40 mg/ 100 mls @ 20 mls/hr 11/17/22 12:45 11/18/22 09:57 Dextrose IV 12/17/22 12:44 8 mg/hr Q5H BROOKE 20 mls/hr Administration 8 MG/HR Ceftriaxone Sodium 2,000 mg/ 70 mls @ 100 mls/hr 11/17/22 18:00 11/17/22 19:16 Dextrose IV 11/21/22 17:59 Infused Q24H BROOKE Infusion Protocol Octreotide Acetate 500 mcg/ 100.5 mls @ 10.05 mls/hr 11/17/22 17:30 11/18/22 04:34 Dextrose IV 12/17/22 17:29 50 mcg/hr .Q10H BROOKE 10.1 mls/hr Administration 50 MCG/HR Parenteral Electrolytes 1,000 mls @ 50 mls/hr 11/17/22 19:30 11/17/22 20:48 Plasma-Lyte A Ph 7.4 IV 12/17/22 19:29 50 mls/hr .Q20H BROOKE Administration Levothyroxine Sodium 50 mcg 11/18/22 06:30 11/18/22 06:26 Levothyroxine Sodium 50 Mcg Tablet PO 12/18/22 06:29 50 mcg DAILYBB BROOKE Administration Past Medical History Medical History (Updated 11/18/22 @ 10:00 by Edward Quinn MD) Anxiety Carotid artery stenosis 80-90% stenosis R ICA Encounter for pre-operative examination Gastric reflux History of anesthesia reaction hypotension History of COVID-spring, sore throat and stomach cramps, cough-denies hospitalization- symptoms resolved Hypertension controlled, stable per pt Hypothyroidism Internal carotid artery stent present Stroke history, found on the brain MRI. no current deficits. Transient ischemic attack (TIA) ~3 months ago, does not follow with neurology. Past Family History Family History Mother Diabetes Aneurysm Sister Ovarian cancer Other No family history of adverse response to anesthesia Denies family history of Prostate cancer Myocardial infarction Breast cancer Colorectal cancer Hypertension Past Surgical History Surgical History History of colonoscopy S/P partial hysterectomy S/P wisdom tooth extraction Social History Smoking Status: Former smoker tobacco type: cigarettes Do You Dip or Chew Tobacco: No Smoking End Date: 2014 Hx Alcohol Use: Yes Alcohol type: wine alcohol intake frequency: holidays/special occasions only Hx Substance Use: No substance use type: does not use Physical Exam Vital Signs Last Vital Signs Temp 36.6 C 11/18/22 07:09 Pulse 76 11/18/22 07:09 Resp 18 11/18/22 07:09 BP 156/66 H 11/18/22 07:09 Pulse Ox 93 11/18/22 07:09 O2 Del Method Room Air 11/18/22 07:15 Testing Laboratory Results 11/18/22 06:06 11/18/22 06:06 PT 11.5 Seconds (9.0-12.0) 11/17/22 11:30 INR 1.1 (0.9-1.1) 11/17/22 11:30 Urine Color Yellow 11/17/22 14:40 Urine Appearance Clear (Clear) 11/17/22 14:40 Urine pH 7.0 (4.5-7.5) 11/17/22 14:40 Ur Specific [place] 1.015 (1.000-1.030) 11/17/22 14:40 Urine Protein Negative (Negative) 11/17/22 14:40 Urine Glucose (UA) Negative (Negative) 11/17/22 14:40 Urine Ketones Negative (Negative) 11/17/22 14:40 Urine Nitrite Negative (Negative) 11/17/22 14:40 Ur Leukocyte Esterase Trace (Negative) H 11/17/22 14:40 Urine WBC (Auto) 1-5 /hpf (0-5) 11/17/22 14:40 Urine RBC (Auto) 0-4 /hpf (0-4) 11/17/22 14:40 U Hyaline Cast (Auto) 5-10 /lpf (0-5) H 11/17/22 14:40 U Epithel Cells (Auto) >30 /lpf (0-5) H 11/17/22 14:40 Urine Bacteria (Auto) Negative (Negative) 11/17/22 14:40 Blood Type A Positive 11/17/22 11:28 Antibody Screen NEGATIVE 11/17/22 11:28 Electrocardiogram Date: 10/30/22 Test Reason : Blood Pressure : / mmHG Vent. Rate : 065 BPM Atrial Rate : 065 BPM P-R Int : 164 ms QRS Dur : 090 ms QT Int : 424 ms P-R-T Axes : 067 023 049 degrees QTc Int : 440 ms Normal sinus rhythm Normal ECG No previous ECGs available Confirmed by Edward Ventura ([id number]) on 10/30/2022 3:03:28 PM Chest X-Ray Date: 11/17/22 SINGLE VIEW CHEST CLINICAL HISTORY: Dyspnea FINDINGS: An AP, portable, upright chest radiograph is compared to study dated 10/30/2022. The examination is degraded by portable technique and apical lordotic positioning. The heart is enlarged. The pulmonary vasculature is noncongested. Chronic interstitial thickening is similar to previous. There is bibasilar scarring/atelectasis. The lungs and pleural spaces are otherwise clear. No pneumothorax is seen. The skeletal structures are osteopenic. The bony thorax is grossly intact. IMPRESSION: Cardiomegaly with no acute cardiopulmonary abnormality.
[2022-11-18] MEDS ORDERED: LIDOCAINE 2% 2 ML VIAL/AMP(20MG/ML) INFIL ONE (11:51)
[2022-11-18] MEDS ORDERED: PROPOFOL IV EMULSION 10 MG/ML 20 ML VIAL IV ONE ×2 (11:51→12:24)
--- NOTE | 2022-11-18 13:08 | GI REPORT ---
Addendum Number: 1 Addendum Date: 11/18/2022 1:12:46 PM Addendum: patient spit out band in recovery, it was in her mouth. No CT scan is needed at this time. diet: clear liquids today, can advance tomorrow as tolerated. case was discussed with pulmonary Dr. High who evaluated the patient as well. Heron Khan MD 11/18/2022 1:14:02 PM This report has been signed electronically. Patient Name: Suri Kim Procedure Date: 11/18/2022 11:34 AM Date of : 1945 Admit Type: Inpatient Age: 77 Gender: Female Attending MD: Heron Khan MD, Procedure: Upper GI endoscopy Providers: Heron Khan MD Referring MD: Padilla Leon M.d. Indications: Hematochezia Medicines: Monitored Anesthesia Care Complications: variceal ligation band came off in patient's mouth Estimated Blood Loss: Estimated blood loss: none. Procedure: Pre-Anesthesia Assessment: - Prior Anticoagulants: The patient has taken Plavix (clopidogrel), last dose was 1 day prior to procedure. - ASA Grade Assessment: III - A patient with severe systemic disease. After obtaining informed consent, the endoscope was passed under direct vision. Throughout the procedure, the patient's blood pressure, pulse, and oxygen saturations were monitored continuously. The Endoscope was introduced through the mouth, and advanced to the second part of duodenum. The upper GI endoscopy was accomplished without difficulty. The patient tolerated the procedure well. Findings: Large (> 5 mm) varices were found in the distal esophagus. Two bands were successfully placed with complete eradication, resulting in deflation of varices. There was no bleeding at the end of the procedure. upon withdrawal of the scope a variceal ligation band fell off in the patients mouth, unable to find the band in the mouth or in mid-proximal esophagus. A few small angioectasias with no bleeding were found in the stomach. Coagulation for hemostasis using argon plasma at 1.2 liters/minute and 30 saini was successful. Diffuse mild inflammation characterized by erythema was found in the stomach. Biopsies were taken with a cold forceps for Helicobacter pylori testing. Estimated blood loss: none. The duodenal bulb and second portion of the duodenum were normal. Impression: - Large (> 5 mm) esophageal varices. Completely eradicated. Banded. - A few non-bleeding angioectasias in the stomach. Treated with argon plasma coagulation (APC). - Gastritis. Biopsied. - Normal duodenal bulb and second portion of the duodenum. Recommendation: - Return patient to [facility] for ongoing care. - NPO today. - Await pathology results. -consider repeat EGD for reevaluation of varices in 8 weeks -can d/c octreotide and change protonix to daily. -obtain CT chest with contrast now to further evaluate for band possibly in lungs/trachea Heron Khan MD 11/18/2022 1:07:34 PM This report has been signed electronically. Note Initiated On: 11/18/2022 11:34 AM Number of Addenda: 1 I attest to the content of the Intraoperative Record and orders documented therein, exceptions below {[id number]}
--- NOTE | 2022-11-18 13:08 | Communication Note ---
Date of Service: November 18, 2022 I was called by Dr. Khan regarding the possible aspiration of an esophageal band status post esophageal banding for variceal bleed. I evaluated the patie nt. She did not appear to be in respiratory distress. She had diminished lung sounds in the lower lobes bilaterally. She was saturating in the low 90s on room air. She denies any cough at present. I discussed the case with Dr. Khan in the endoscopy nurse. I recommended obtaining a CT chest with contrast. I went over options with the patient including bronchoscopy versus follow-up imaging. She would like to proceed with imaging at this time which I think is appropriate. She notes that she was previously a smoker and quit smoking about 8 years ago. She recently underwent an endarterectomy. She also has a history of cirrhosis. She is currently on aspirin and Plavix.
--- NOTE | 2022-11-18 13:29 | Anesthesiology Progress Note ---
Date of Service November 18, 2022 Anesthesia Post Procedure Vital Signs Vital Signs: Temp Pulse Pulse Resp BP BP Pulse Ox 11/18/22 12:58 67 16 136/63 94 11/18/22 12:42 67 16 123/51 L 98 11/18/22 12:26 69 16 141/55 H 98 11/18/22 10:54 36.4 C L 76 18 150/62 H 95 11/18/22 07:15 11/18/22 07:09 36.6 C 76 18 156/66 H 93 11/17/22 20:50 36.7 C 77 18 168/82 H 96 11/17/22 17:42 11/17/22 17:30 36.4 C L 80 16 178/71 H 94 11/17/22 16:59 78 20 179/80 H 99 11/17/22 15:48 79 18 153/76 H 99 11/17/22 14:30 75 19 96 11/17/22 14:01 76 16 99 11/17/22 14:01 167/87 H 11/17/22 14:00 80 17 94 11/17/22 13:30 76 21 96 11/17/22 13:30 174/84 H O2 Del Method O2 Flow Rate 11/18/22 12:58 Room Air 11/18/22 12:42 Room Air 11/18/22 12:26 Oxymask 6 11/18/22 10:54 Room Air 11/18/22 07:15 Room Air 11/18/22 07:09 Room Air 11/17/22 20:50 Room Air 11/17/22 17:42 Room Air 11/17/22 17:30 Room Air 11/17/22 16:59 Room Air 11/17/22 15:48 11/17/22 14:30 11/17/22 14:01 11/17/22 14:01 11/17/22 14:00 11/17/22 13:30 11/17/22 13:30 Transfer of Care Handoff Completed per policy Notes Mental Status: alert / awake / arousable and participated in evaluation Patient Amnestic to Procedure: Yes Nausea / Vomiting: adequately controlled Pain: adequately controlled Airway Patency, RR, SpO2: stable & adequate BP & HR: stable & adequate Hydration State: stable & adequate Anesthetic Complications: no major complications apparent
--- NOTE | 2022-11-18 14:38 | Hospitalist Progress Note ---
Date of Service November 18, 2022 Assessment & Plan (1) Acute GI bleeding: Plan: S/P egd with large esophageal varices(banded), small gastric angiectasias (treated w APC) Per GI ok to d/c octreotide and PPI gtt, change to PPI daily, ok to resume Plavix today Consider repeat EGD 8 weeks for reevaluation of the varices If patient should have increased cough would get a CXR Continue to closely monitor for evidence of any active GI bleeding Monitor labs in AM (2) Dysphonia: Plan: s/p carotid revasculization - consider ENT follow up (3) Internal carotid artery stent present: Plan: - Per GI ok to resume Plavix today (4) Hypothyroidism: Plan: Chronic and stable TSH WNL in May 2022 Continue levothyroxine (5) Hypertension: Plan: Chronic Holding triamerene/HCTZ in setting of acute bleed May restart in AM (6) Anxiety: Plan: Chronic stable Continue fluoxetine (7) Esophageal varices in cirrhosis: Plan: - Check AFP - Discussed with patient need to completely abstain from ALL alcohol - AFP and Liver U/S q 6 months - Follow up with GI for repeat EGD in 8 weeks - To consider starting a non-selective beta gabriella such as propranolol or nadolol Plan VTE Prophylaxis - restart Plavix 11/18/22 Diet - clears today, may increase to soft tomorrow if stable Disposition - observation to med/surg Admission and Anticipated Discharge Date Admission Date: November 17, 2022 Subjective Patient was awake laying in bed. She just got back from EGD. EGD revealed large >5mm esophageal varices that were successfully banded. One of the bands fell of when retracting the scop but was found in patient's mouth. She also had a few small gastric angioectasias that were treated with APC. also diffuse inflammation in the stomach and was bx for H Pylori. Normal duodenum. CTAP revealed evidence of liver cirrhosis. 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 Review of Systems Review of Systems: Patient complains of a hoarse voice (dysphonia) since her carotid revascularization - consider ENT follow up She denies any chest pain, cough, nausea or SOB. She denies any abdominal pain. All other ROS negative unless stated otherwise in the HPI Physical Exam Constitutional: WD/WN, vitals as above Neck: trachea midline, no thyromegaly healing scar right neck Respiratory: normal respiratory effort, lungs clear to auscultation Cardiovascular: RRR, no murmur, no edema Gastrointestinal (Abdomen): normal bowel sounds, soft, nontender, no hepatosplenomegaly Psychiatric: A+Ox3, euthymic affect Results & Data Results & Data Vital Signs (Past 12 Hours) Vital Signs Temp Pulse Resp BP Pulse Ox O2 Del Method O2 Flow Rate 11/18/22 13:43 36.5 C 65 18 158/75 H 95 Room Air 11/18/22 12:58 67 16 136/63 94 Room Air 11/18/22 12:42 67 16 123/51 L 98 Room Air 11/18/22 12:26 69 16 141/55 H 98 Oxymask 6 11/18/22 10:54 36.4 C L 76 18 150/62 H 95 Room Air 11/18/22 07:15 Room Air 11/18/22 07:09 36.6 C 76 18 156/66 H 93 Room Air Laboratory Results Abnormal lab results 11/17/22 11/18/22 11/18/22 Range/Units 17:59 00:09 06:06 RBC 2.99 L 2.75 L 2.74 L (4.20-5.40) M/uL Hgb 9.2 L 8.6 L 8.4 L (12.0-16.0) g/dl Hct 27.7 L 25.3 L 25.2 L (37.0-47.0) % RDW Std Deviation 49.6 H 49.1 H 48.9 H (36.4-46.3) fL RDW Coeff of Shira 14.6 H 14.8 H 14.7 H (11.5-14.5) % Chloride (98-107) mmol/L BUN/Creatinine Ratio (10-20) Glucose (70-99(Fasting)) mg/dl Calcium (8.6-10.3) mg/dl AST (13-39) U/L Alkaline Phosphatase (34-104) U/L Total Protein (6.0-8.3) gm/dl Albumin (3.4-5.0) gm/dl 11/18/22 Range/Units 06:06 RBC (4.20-5.40) M/uL Hgb (12.0-16.0) g/dl Hct (37.0-47.0) % RDW Std Deviation (36.4-46.3) fL RDW Coeff of Shira (11.5-14.5) % Chloride 108 H (98-107) mmol/L BUN/Creatinine Ratio 22.2 H (10-20) Glucose 170 H (70-99(Fasting)) mg/dl Calcium 8.2 L (8.6-10.3) mg/dl AST 41 H (13-39) U/L Alkaline Phosphatase 112 H (34-104) U/L Total Protein 5.8 L D (6.0-8.3) gm/dl Albumin 3.2 L (3.4-5.0) gm/dl PG Care Time/CCT Total # of Minutes Spent Total Time Spent with Patient: Total time spent is greater than 50% in coordination of care (as documented) at patient's floor/unit and/or counseling patient: Coding Level of Care Code 36003 SUB INP/OBS CARE 2/35MIN Diagnoses Acute GI bleeding K92.2 Dysphonia R49.0 Internal carotid artery stent present Z95.828 Hypothyroidism E03.9 Hypertension I10 Anxiety F41.9 Esophageal 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
[2022-11-18] MEDS: traMADol HCL 50 MG TABLET PO PRN (15:33)
[2022-11-18] MEDS: CLOPIDOGREL BISULFATE 75 MG TAB PO SCH (16:32)
[2022-11-18] MEDS: cefTRIAXone SODIUM 2,000 MG in DEXTROSE 5% 50 ML IV SCH (18:17)
[2022-11-18] MEDS: PLASMA-LYTE A 1,000 ML IV SCH (19:05)
[2022-11-19] MEDS: traMADol HCL 50 MG TABLET PO PRN ×2 (00:16→20:37)
[2022-11-19] MEDS: LEVOTHYROXINE SODIUM 50 MCG TABLET PO SCH (05:40)
[2022-11-19 07:53] LABS: Hematocrit (blood only) 26.3 % (37.0-47.0); Hemoglobin 8.7 g/dl (12.0-16.0); Mean Corpuscular Hemoglobin 30.4 pg (25.0-34.0); Mean Corpuscular Hgb Conc 33.1 g/dL (32.0-36.0); Mean Platelet Volume 10.4 fL (9.4-12.4); Platelet Count 135 K/uL (130-400); RDW Coefficient of Variation 14.6 % (11.5-14.5); Red Blood Count 2.86 M/uL (4.20-5.40); White Blood Count 5.26 K/ul (4.8-10.8)
[2022-11-19 08:15] LABS: Albumin Level 3.3 gm/dl (3.4-5.0); Bilirubin Direct 0.3 mg/dl (0-0.2); Bilirubin,Total 0.8 mg/dl (0.2-1.0); Calcium 8.2 mg/dl (8.6-10.3); Creatinine Clr Calc Pharmacy 72.2 ml/min; Est GFR (African American) 101.2 ml/min; Est GFR (Non-African American) 87.3 ml/min; Potassium 3.3 mmol/L (3.5-5.1)
[2022-11-19] MEDS: ATORVASTATIN 20 MG TAB PO SCH (08:54)
[2022-11-19] MEDS: FLUoxetine HCL 20 MG CAP PO SCH (08:54)
[2022-11-19] MEDS: CLOPIDOGREL BISULFATE 75 MG TAB PO SCH (08:55)
[2022-11-19] MEDS: POTASSIUM CHLORIDE / WTR 10 MEQ/100 ML PLCT IV SCH ×2 (10:52→12:00)
[2022-11-19] MEDS: PANTOprazole 40 MG in SYRINGE 0 ML IV SCH (10:52)
--- NOTE | 2022-11-19 10:54 | Gastroenterology Progress Note ---
Date of Service November 19, 2022 Assessment & Plan (1) Acute GI bleeding: (2) Symptomatic anemia: (3) Cirrhosis: Plan New dx of cirrhosis by CT. Diff dx: cardiogenic vs MCCLELLAN vs cryptogenic vs other. Patient was a former alcohol drinker. Denies any current use. Admitted with acute GIB in the setting of ASA/Plavix use s/p right TCAR on 11/03/22 with findings of large esophageal varices s/p banding and gastric AVM s/p APC. Plan as follows: -Advance diet to 2 g Na restricted diet. -Continue Pantoprazole 40 mg daily. -EGD with Dr. Khan in 8 weeks to be arranged through our office. -Strict ETOH avoidance. -Oupt GI follow up for cirrhosis mngt, including HCC surveillance. -Continue supportive care. Admission and Anticipated Discharge Date Admission Date: November 17, 2022 Subjective Patient is status post EGD yesterday with findings of large esophageal varices s/p banding and gastric AVM s/p APC by Dr. Khan. There was initially concern for misfired band that became stuck in the oropharynx but patient was able to expel the band. She denies any shortness of breath or cough post procedure. She states she did have some odynophagia last evening but that symptom has since subsided. No abdominal pain, melena or hematochezia. H&H is stable. PPI and Octreotide ggt d/c and now on Pantoprazole 40 mg daily. Review of Systems Constitutional: + fatigue; no fever Respiratory: as per Subjective / HPI Cardiovascular: as per Subjective / HPI; no chest pain and no palpitations Gastrointestinal: as per Subjective / HPI Physical Exam Constitutional: WD/WN, vitals as above Respiratory: normal respiratory effort, lungs clear to auscultation Cardiovascular: Rate/Rhythm: regular rate and regular rhythm Gastrointestinal (Abdomen): Inspection/Auscultation: abdomen normal to inspect ion and normal bowel sounds Percussion/Palpation: abdomen soft; abdomen nontender Skin: + pallor Psychiatric: A+Ox3, euthymic affect Results & Data Results & Data Vital Signs (Past 12 Hours) Vital Signs Temp Pulse Pulse Resp BP Pulse Ox O2 Del Method 11/19/22 07:51 36.6 C 74 16 163/72 H 94 Room Air 11/19/22 07:02 36.7 C 74 18 160/64 H 95 Room Air 11/19/22 02:44 36.7 C 67 16 131/67 95 Room Air Diagnostic Findings Laboratory Results WBC 5.26 K/ul (4.8-10.8) 11/19/22 06:39 RBC 2.86 M/uL (4.20-5.40) L 11/19/22 06:39 Hgb 8.7 g/dl (12.0-16.0) L 11/19/22 06:39 Hct 26.3 % (37.0-47.0) L 11/19/22 06:39 MCV 92.0 fL (80.0-100.0) 11/19/22 06:39 MCH 30.4 pg (25.0-34.0) 11/19/22 06:39 MCHC 33.1 g/dL (32.0-36.0) 11/19/22 06:39 RDW Std Deviation 49.0 fL (36.4-46.3) H 11/19/22 06:39 RDW Coeff of Shira 14.6 % (11.5-14.5) H 11/19/22 06:39 Plt Count 135 K/uL (130-400) 11/19/22 06:39 MPV 10.4 fL (9.4-12.4) 11/19/22 06:39 Immature Gran % (Auto) 1.0 % 11/17/22 11:30 Neut % (Auto) 67.5 % 11/17/22 11:30 Lymph % (Auto) 17.7 % 11/17/22 11:30 [place] % (Auto) 9.9 % 11/17/22 11:30 Eos % (Auto) 2.7 % 11/17/22 11:30 Baso % (Auto) 1.2 % 11/17/22 11:30 Neut # (Auto) 5.98 K/uL (1.40-6.50) 11/17/22 11:30 Lymph # (Auto) 1.57 K/uL (1.2-3.4) 11/17/22 11:30 [place] # (Auto) 0.88 K/uL (0.11-0.59) H 11/17/22 11:30 Eos # (Auto) 0.24 K/uL (0-0.50) 11/17/22 11:30 Baso # (Auto) 0.11 K/uL (0-0.2) 11/17/22 11:30 Immature Gran # (Auto) 0.09 K/uL (0.01-0.20) 11/17/22 11:30 PT 11.5 Seconds (9.0-12.0) 11/17/22 11:30 INR 1.1 (0.9-1.1) 11/17/22 11:30 Sodium 140 mmol/L (136-145) 11/19/22 06:39 Potassium 3.3 mmol/L (3.5-5.1) L 11/19/22 06:39 Chloride 107 mmol/L (98-107) 11/19/22 06:39 Carbon Dioxide 26 mmol/L (21-32) 11/19/22 06:39 Anion Gap 7 (3-11) 11/19/22 06:39 BUN 9 mg/dl (6-23) 11/19/22 06:39 Creatinine 0.60 mg/dl (0.6-1.2) 11/19/22 06:39 Est Cr Clr Drug Dosing 72.2 ml/min 11/19/22 06:39 Est GFR ( Amer) 101.2 ml/min 11/19/22 06:39 Est GFR (Non-Af Amer) 87.3 ml/min 11/19/22 06:39 BUN/Creatinine Ratio 15.0 (10-20) 11/19/22 06:39 Glucose 145 mg/dl (70-99(Fasting)) H 11/19/22 06:39 Calcium 8.2 mg/dl (8.6-10.3) L 11/19/22 06:39 Total Bilirubin 0.8 mg/dl (0.2-1.0) 11/19/22 06:39 Direct Bilirubin 0.3 mg/dl (0-0.2) H 11/19/22 06:39 AST 59 U/L (13-39) H 11/19/22 06:39 ALT 24 U/L (7-52) 11/19/22 06:39 Alkaline Phosphatase 113 U/L (34-104) H 11/19/22 06:39 Total Protein 6.0 gm/dl (6.0-8.3) 11/19/22 06:39 Albumin 3.3 gm/dl (3.4-5.0) L 11/19/22 06:39 Globulin 2.6 gm/dl (2.5-4.0) 11/18/22 06:06 Albumin/Globulin Ratio 1.2 (0.9-2) 11/18/22 06:06 Lipase 26 U/L (11-82) 11/17/22 11:30 Urine Color Yellow 11/17/22 14:40 Urine Appearance Clear (Clear) 11/17/22 14:40 Urine pH 7.0 (4.5-7.5) 11/17/22 14:40 Ur Specific [place] 1.015 (1.000-1.030) 11/17/22 14:40 Urine Protein Negative (Negative) 11/17/22 14:40 Urine Glucose (UA) Negative (Negative) 11/17/22 14:40 Urine Ketones Negative (Negative) 11/17/22 14:40 Urine Blood Negative (Negative) 11/17/22 14:40 Urine Nitrite Negative (Negative) 11/17/22 14:40 Urine Bilirubin Negative (Negative) 11/17/22 14:40 Urine Urobilinogen Negative (Negative) 11/17/22 14:40 Ur Leukocyte Esterase Trace (Negative) H 11/17/22 14:40 Urine WBC (Auto) 1-5 /hpf (0-5) 11/17/22 14:40 Urine RBC (Auto) 0-4 /hpf (0-4) 11/17/22 14:40 U Hyaline Cast (Auto) 5-10 /lpf (0-5) H 11/17/22 14:40 U Epithel Cells (Auto) >30 /lpf (0-5) H 11/17/22 14:40 Urine Bacteria (Auto) Negative (Negative) 11/17/22 14:40 Hepatitis C Ab (EIA) NON-REACTIVE (NON-REACTIVE) 11/18/22 06:06 Hep C Ab Signal/Cutoff 0.09 (<1.00) 11/18/22 06:06 SARS-CoV-2, RNA, NAAT NEGATIVE (NEGATIVE) 11/17/22 13:05 Blood Type A Positive 11/17/22 11:28 Antibody Screen NEGATIVE 11/17/22 11:28 Impressions Abdomen/Pelvis CT 11/17/22 14:04 CT abd pelvis IV con only CLINICAL HISTORY: GI bleed, lower abdominal pain since carotid stent TECHNIQUE: Helical axial images of the abdomen and pelvis were obtained and displayed. Automated dose lowering techniques and/or adjustment according to patient size were utilized for this exam. This exam was performed with intravenous contrast. CT DOSE: 1360.34 mGy.cm COMPARISON: None available at the time of this dictation. FINDINGS: Lower chest: No acute abnormality. Liver: Nodular contour of the liver is seen compatible with cirrhosis. Gallbladder and biliary tree: No calcified gallstones. Normal caliber wall. No intra- or extrahepatic biliary ductal dilation. Pancreas: Unremarkable, no focal lesions. Spleen: Splenomegaly is noted, the spleen measures 14.5 cm in craniocaudal dimension. Adrenals: Unremarkable. Kidneys and ureters: Unremarkable. Bladder: Limited evaluation due to underdistention. There is a tiny focus of gas, correlation with recent rotation is recommended. Reproductive organs: Patient is status post hysterectomy. Bowel: The appendix is normal. Lymph nodes Retroperitoneal: Subcentimeter lymph nodes are noted. Pelvic: Unremarkable. Mesenteric: Unremarkable. Peritoneum: Normal. Vessels: Atherosclerotic calcifications are seen. There is a tiny infrarenal aortic aneurysm measuring 21 mm in diameter. 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 Abdominal wall: Left fat containing inguinal hernia. Bones: Degenerative changes in the visualized spine. IMPRESSION: 1. No acute abnormalities are seen in particular no evidence of retroperitoneal hematoma. 2. Cirrhosis with stigmata of pulmonary hypertension including splenomegaly and varices. ACT 112: Negative or not required by law. Electronically signed by: Dequan Hennessy M.D. 11/17/2022 3:30 PM Chest X-Ray 11/17/22 14:07 SINGLE VIEW CHEST CLINICAL HISTORY: Dyspnea FINDINGS: An AP, portable, upright chest radiograph is compared to study dated 10/30/2022. The examination is degraded by portable technique and apical lordotic positioning. The heart is enlarged. The pulmonary vasculature is noncongested. Chronic interstitial thickening is similar to previous. There is bibasilar scarring/atelectasis. The lungs and pleural spaces are otherwise clear. No pneumothorax is seen. The skeletal structures are osteopenic. The bony thorax is grossly intact. IMPRESSION: Cardiomegaly with no acute cardiopulmonary abnormality. ACT 112: Negative or not required by law. Electronically signed by: Tom Junior M.D. 11/17/2022 2:43 PM PG Care Time/CCT Total # of Minutes Spent Total Time Spent with Patient: Total time spent is greater than 50% in coordination of care (as documented) at patient's floor/unit and/or counseling patient: Coding Level of Care Code 37581 SUB INP/OBS CARE 3/50MIN Diagnoses Acute GI bleeding K92.2 Symptomatic anemia D64.9 Cirrhosis K74.60
[2022-11-19] MEDS: TRIAMTERENE/HCTZ 37.5/25MG CAP PO SCH (11:05)
[2022-11-19] MEDS: PLASMA-LYTE A 1,000 ML IV SCH (13:30)
--- NOTE | 2022-11-19 14:20 | Hospitalist Progress Note ---
Date of Service November 19, 2022 Assessment & Plan (1) Acute GI bleeding: Plan: S/P egd with large esophageal varices(banded), small gastric angiectasias (treated w APC) Per GI ok to d/c octreotide and PPI gtt - stopped 11/19/22 after EGD, changed to PPI daily, ok to resume Plavix yesterday Consider repeat EGD 8 weeks for reevaluation of the varices If patient should have increased cough would get a CXR Continue to closely monitor for evidence of any active GI bleeding Continue to Monitor labs in AM (2) Dysphonia: Plan: s/p carotid revasculization - consider ENT follow up if persists (3) Internal carotid artery stent present: Plan: - Per GI ok to resume Plavix yesterday (4) Hypothyroidism: Plan: Chronic and stable TSH WNL in May 2022 Continue levothyroxine (5) Hypertension: Plan: Chronic Held triamerene/HCTZ in setting of acute bleed but restarted today (6) Anxiety: Plan: Chronic stable Continue fluoxetine (7) Esophageal varices in cirrhosis: Plan: - Check AFP (pending) - Discussed with patient need to completely abstain from ALL alcohol - AFP and Liver U/S q 6 months - Follow up with GI for repeat EGD in 8 weeks - To consider starting a non-selective beta gabriella such as propranolol or nadolol Advance diet to full liquid at lunch and if tolerates advance to soft easy to chew Plan VTE Prophylaxis - restart Plavix 11/18/22 Diet - clears today, may increase to soft tomorrow if stable Disposition - observation to med/surg Admission and Anticipated Discharge Date Admission Date: November 19, 2022 Subjective Patient had EGD yesterday with findings of large >5mm esophageal varices s/p banding and gastric AVM s/p APC by Dr. Khan. Hgb stable 8.7 (8.4). PPI and O ctreotide ggt d/c and now on Pantoprazole 40 mg daily. She denies any cough, dyspnea, chest pain, She has some odynophagia since her carotid surgery but feels is improving. She is tolerating a clear diet Patient is passing flatus but no BM and no N/V Review of Systems Review of Systems: Patient complains of a hoarse voice (dysphonia) since her carotid revascularization - consider ENT follow up She denies any chest pain, cough, nausea or SOB. She denies any abdominal pain. All other ROS negative unless stated otherwise in the HPI Physical Exam Constitutional: WD/WN, vitals as above Neck: trachea midline, no thyromegaly Respiratory: normal respiratory effort, lungs clear to auscultation Cardiovascular: RRR, no murmur, no edema Gastrointestinal (Abdomen): normal bowel sounds, soft, nontender, no hepatosplenomegaly Psychiatric: A+Ox3, euthymic affect Results & Data Results & Data Vital Signs (Past 12 Hours) Vital Signs Temp Pulse Pulse Resp BP Pulse Ox O2 Del Method 11/19/22 07:51 36.6 C 74 16 163/72 H 94 Room Air 11/19/22 07:02 36.7 C 74 18 160/64 H 95 Room Air 11/19/22 02:44 36.7 C 67 16 131/67 95 Room Air Laboratory Results Abnormal lab results 11/19/22 11/19/22 Range/Units 06:39 06:39 RBC 2.86 L (4.20-5.40) M/uL Hgb 8.7 L (12.0-16.0) g/dl Hct 26.3 L (37.0-47.0) % RDW Std Deviation 49.0 H (36.4-46.3) fL RDW Coeff of Shira 14.6 H (11.5-14.5) % Potassium 3.3 L (3.5-5.1) mmol/L Glucose 145 H (70-99(Fasting)) mg/dl Calcium 8.2 L (8.6-10.3) mg/dl Direct Bilirubin 0.3 H (0-0.2) mg/dl AST 59 H (13-39) U/L Alkaline Phosphatase 113 H (34-104) U/L Albumin 3.3 L (3.4-5.0) gm/dl PG Care Time/CCT Total # of Minutes Spent Total Time Spent with Patient: Total time spent is greater than 50% in coordination of care (as documented) at patient's floor/unit and/or counseling patient: Coding Level of Care Code 17057 SUB INP/OBS CARE 125MIN Diagnoses Acute GI bleeding K92.2 Dysphonia R49.0 Internal carotid artery stent present Z95.828 Hypothyroidism E03.9 Hypertension I10 Anxiety F41.9 Esophageal 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
[2022-11-19] MEDS: cefTRIAXone SODIUM 2,000 MG in DEXTROSE 5% 50 ML IV SCH (18:32)
[2022-11-20] MEDS: LEVOTHYROXINE SODIUM 50 MCG TABLET PO SCH (05:52)
[2022-11-20] MEDS: PLASMA-LYTE A 1,000 ML IV SCH (05:52)
[2022-11-20 06:40] LABS: Hematocrit (blood only) 25.3 % (37.0-47.0); Hemoglobin 8.6 g/dl (12.0-16.0); Mean Corpuscular Hemoglobin 31.2 pg (25.0-34.0); Mean Corpuscular Volume 91.7 fL (80.0-100.0); Mean Platelet Volume 10.3 fL (9.4-12.4); Platelet Count 121 K/uL (130-400); RDW Coefficient of Variation 14.7 % (11.5-14.5); Red Blood Count 2.76 M/uL (4.20-5.40); White Blood Count 5.45 K/ul (4.8-10.8)
[2022-11-20 08:09] LABS: Albumin Level 3.2 gm/dl (3.4-5.0); Bilirubin,Total 0.8 mg/dl (0.2-1.0); Calcium 8.1 mg/dl (8.6-10.3); Potassium 3.4 mmol/L (3.5-5.1)
[2022-11-20 08:15] LABS: Albumin Globulin Ratio 1.2 (0.9-2); Creatinine Clr Calc Pharmacy 74.7 ml/min; Est GFR (African American) 102.3 ml/min; Est GFR (Non-African American) 88.3 ml/min; Globulin 2.6 gm/dl (2.5-4.0); Total Protein 5.8 gm/dl (6.0-8.3)
[2022-11-20] MEDS: CLOPIDOGREL BISULFATE 75 MG TAB PO SCH (08:51)
[2022-11-20] MEDS: TRIAMTERENE/HCTZ 37.5/25MG CAP PO SCH (08:52)
[2022-11-20] MEDS: ATORVASTATIN 20 MG TAB PO SCH (08:52)
[2022-11-20] MEDS: FLUoxetine HCL 20 MG CAP PO SCH (08:52)
[2022-11-20] MEDS: PANTOprazole 40 MG in SYRINGE 0 ML IV SCH (12:01)
[2022-11-20] MEDS ORDERED: POTASSIUM CHLORIDE CRTAB 20 MEQ TABCR PO STA (12:28)
[2022-11-20] MEDS ORDERED: bisacodyL 10 MG SUPP PR STA (13:06)
--- NOTE | 2022-11-20 13:37 | Discharge Summary ---
Date of Service November 20, 2022 Admission HPI Per Admitting Provider Suri Kim is a 77 year old female who presents to the ER due to 3 days of black stool and bright red blood in stool. She recently underwent right transcarotid artery revascularization via left femoral vein performed on November 03, 2022. Since then she reports having lower abdominal pain. No radiation in abdominal pain. Constant since surgery. No worse with eating. Worse with position. She was out of town following this therefore did not return to the ER until today. Associated 2 episodes of vomiting (once today) with mucus like substance. She denies any prior gastric ulcers although does note a history of GERD which is under control with omeprazole. Admission Exam Per Admitting Provider Constitutional: WD/WN, vitals as above Eyes: PERRL, conjunctivae normal, anicteric sclerae ENMT: Mouth: + dry oral mucous membranes Respiratory: normal respiratory effort, lungs clear to auscultation Cardiovascular: RRR, no murmur, no edema Gastrointestinal (Abdomen): Inspection/Auscultation: abdomen normal to inspection; abdomen not distended Percussion/Palpation: + abdomen tender (lower abdomen) and abdomen soft; no guarding and abdomen not rigid Musculoskeletal: no cyanosis or clubbing, extremities motor strength 5/5 Skin: no rashes, warm and dry Neurologic: moves all extremities and awake; not confused Psychiatric: A+Ox3, euthymic affect Principal Diagnosis 1. UGI bleed d/t esophageal varices 2. Newly dx cirrhosis of liver Discharge Exam GENERAL: 77 yo well-developed, well-nourished elderly F. AAOx4. NAD. LUNGS: Clear to auscultation bilaterally w/o w/r/r CARDIOVASCULAR: Regular rate and rhythm ABDOMEN: Soft, non-tender and non-distended. Bowel sounds normoactive x 4 quad. EXTREMITIES: No edema. Non-tender. Peripheral pulses +2/4. Discharge Data Allergies Allergy/AdvReac Type Severity Reaction Status Date / Time codeine AdvReac Severe Headache Verified 11/18/22 10:54 Consultations 11/17/22 13:22 ED Decision to Admit Stat 11/17/22 14:25 Consult Gastroenterology Routine Procedures Performed Operation Date: 11/18/22 17:30 Actual Procedures p EGD Banding of Varices - Heron Khan MD Ordered Studies 11/20/22 06:13 06/08/23 06:13 Abdomen/Pelvis CT 11/17/22 14:04 CT abd pelvis IV con only CLINICAL HISTORY: GI bleed, lower abdominal pain since carotid stent TECHNIQUE: Helical axial images of the abdomen and pelvis were obtained and displayed. Automated dose lowering techniques and/or adjustment according to patient size were utilized for this exam. This exam was performed with intravenous contrast. CT DOSE: 1360.34 mGy.cm COMPARISON: None available at the time of this dictation. FINDINGS: Lower chest: No acute abnormality. Liver: Nodular contour of the liver is seen compatible with cirrhosis. Gallbladder and biliary tree: No calcified gallstones. Normal caliber wall. No intra- or extrahepatic biliary ductal dilation. Pancreas: Unremarkable, no focal lesions. Spleen: Splenomegaly is noted, the spleen measures 14.5 cm in craniocaudal dimension. Adrenals: Unremarkable. Kidneys and ureters: Unremarkable. Bladder: Limited evaluation due to underdistention. There is a tiny focus of gas, correlation with recent rotation is recommended. Reproductive organs: Patient is status post hysterectomy. Bowel: The appendix is normal. Lymph nodes Retroperitoneal: Subcentimeter lymph nodes are noted. Pelvic: Unremarkable. Mesenteric: Unremarkable. Peritoneum: Normal. Vessels: Atherosclerotic calcifications are seen. There is a tiny infrarenal aortic aneurysm measuring 21 mm in diameter. 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 Abdominal wall: Left fat containing inguinal hernia. Bones: Degenerative changes in the visualized spine. IMPRESSION: 1. No acute abnormalities are seen in particular no evidence of retroperitoneal hematoma. 2. Cirrhosis with stigmata of pulmonary hypertension including splenomegaly and varices. ACT 112: Negative or not required by law. Electronically signed by: Dequan Hennessy M.D. 11/17/2022 3:30 PM Chest X-Ray 11/17/22 14:07 SINGLE VIEW CHEST CLINICAL HISTORY: Dyspnea FINDINGS: An AP, portable, upright chest radiograph is compared to study dated 10/30/2022. The examination is degraded by portable technique and apical lordotic positioning. The heart is enlarged. The pulmonary vasculature is noncongested. Chronic interstitial thickening is similar to previous. There is bibasilar scarring/atelectasis. The lungs and pleural spaces are otherwise clear. No pneumothorax is seen. The skeletal structures are osteopenic. The bony thorax is grossly intact. IMPRESSION: Cardiomegaly with no acute cardiopulmonary abnormality. ACT 112: Negative or not required by law. Electronically signed by: Tom Junior M.D. 11/17/2022 2:43 PM Hospital Course (1) Acute GI bleeding: - S/P EGD with large esophageal varices(banded), small gastric angiectasias (treated w APC) - Per GI ok to d/c octreotide and PPI gtt - stopped 11/19/22 after EGD, changed to PPI daily - Plavix resumed on 11/19 - Consider repeat EGD 8 weeks for reevaluation of the varices - No BM x 5 days, given a Bisacodyl suppository prior to dc - Full liquid diet advanced today to regular low Na diet for lunch, tolerated well - Will require close GI follow up upon dc (2) Dysphonia: - s/p carotid revascularization - consider ENT follow up if persists - can discuss with PCP at follow up (3) Internal carotid artery stent present: - Per GI ok to resume Plavix and Aspirin (4) Hypothyroidism: Chronic and stable - TSH WNL in May 2022 - Continue levothyroxine (5) Hypertension: Chronic - Held triamerene/HCTZ in setting of acute bleed but restarted 11/19 (6) Anxiety: Chronic stable - Continue fluoxetine (7) Esophageal varices in cirrhosis: - Check AFP (pending) - Discussed with patient need to completely abstain from ALL alcohol - AFP and Liver U/S q 6 months - Follow up with GI for repeat EGD in 8 weeks - To consider starting a non-selective beta gabriella such as propranolol or nadolol Plan Patient is medically and hemodynamically stable for discharge home today. Will require close f/u with GI as outpatient. Advise PCP follow up within 1 week or sooner if needed. Incorporate more fiber and drink plenty of water, may want to start on daily Miralax or stool softener to reduce constipation. Plan has been d/w Dr. Amin who has also seen and evaluated this patient and agrees with aforementioned. Total Time Total Time Spent Total Time Spent (In Minutes): 40 minutes Discharge Plan Discharge Items Patient Disposition: Home - Self-Care Reason For Visit: ACUTE GI BLEED Discharge Diagnosis: bleeding of esophagus Activity: Resume your previous activity Non-emergency contact: Primary Care Provider and [employer] Call non-emergency contact if: you have any medication questions and your symptoms worsen Follow-up/Referrals: Clara Weathers MD [Primary Care Provider] - 11/27/22 2:00 pm (APPOINTMENT WITH DR BARTHOLOMEW) Heron Khan MD [Physician] - 01/16/23 9:40 am Diet: Regular and Low Sodium (2gm) Diet Texture: Easy to Chew Addtl Attending Provider Instructions: You were hospitalized due to bleeding in your esophagus. You were taken for an upper endoscopy and the bleeding was stopped. You did have a mild drop in your blood counts but they have remained stable over the past few days. Given that you have been newly diagnosed with cirrhosis of your liver, it will be imperative for you to completely abstain from alcohol. You will also need to follow a low salt diet. Would also advise sticking to an easy to chew (relatively soft) diet over the next few days. Recommend incorporating more fiber into your diet and drinking plenty of water. Would consider adding daily Miralax or stool softener daily to prevent worsening constipation. You will need to follow up with Dr. Khan in the office and it will be discussed whether you will need to have a repeat upper endoscopy procedure in 8 weeks. Your aspirin and plavix may be resumed as before. It is recommended that you follow up with your family doctor within 1 week of discharge or sooner if needed. If you have any questions after you leave the hospital, you may call the nonemergency number listed on your discharge paperwork. In the event of a medical emergency, call 911. Pending Studies at Discharge: No Stand-Alone Forms: My [facility], Smoking Cessation Medications and DC Order Prescriptions: New aspirin 81 mg tablet,delayed release (DR/EC) 81 mg PO DAILY Qty: 30 0RF Continued triamterene-hydrochlorothiazid 37.5-25 mg capsule 1 cap PO QAM Qty: 90 1RF cetirizine [Zyrtec] 10 mg tablet 10 mg PO DAILY PRN (Reason: seasonal allergies) atorvastatin [Lipitor] 20 mg Tablet 20 mg PO QAM omeprazole 40 mg capsule,delayed release(DR/EC) 40 mg PO QAM levothyroxine 50 mcg tablet 50 mcg PO QAM clopidogrel [Plavix] 75 mg Tablet 75 mg PO QAM fluoxetine [Prozac] 40 mg capsule 40 mg PO QAM tramadol 50 mg tablet 50 mg PO BID PRN (Reason: pain) Qty: 10 0RF Discontinued aspirin 81 mg Tablet,Delayed Release (Dr/Ec) 81 mg PO QAM Discharge Orders: Discharge Order (Routine); Ordered 11/20/22 Ordered By: Sonia Garcia/Other Patient Handouts: Cirrhosis of Liver Dc Admission Data Admit Date/Time: 11/19/22 13:38 Attending Provider: Kristel Amin Admit Provider: Jorge Cano Primary Care Provider: Clara Weathers Other Providers: Jorge Cano ; Heron Khan ; Padilla Leon Other Interventions: Discharge Summary Assessment (RN) Last Done: 11/20/22 13:57 Supervising Physician Co-Signing Physician Notes PA Supervision Note: I personally saw and examined the patient. I verified all robert points and agree with MINA Cameron with the following exceptions and/or additions: Subjective: 77-year-old female who during this admission was treated for upper GI bleed due to esophageal varices. She has a new diagnosis of cirrhosis of the liver. On day of discharge she reports hoarseness unchanged over the last 2 weeks, otherwise no complaints. Tolerated lunch well without abdominal pain, nausea. Does endorse constipation for the last several days. Physical exam: Vitals reviewed Gen: Alert and oriented, NAD HEENT: anicteric sclerae, EOMI Abd: +BS soft NT ND no masses Skin: no rashes, warm/dry; right neck surgical site clean, dry, no erythema, nontender Neuro: No focal neurologic deficits Labs, Rads, and ECG reviewed Assessment and Plan: Acute upper GI bleed, new diagnosis cirrhosis: Large esophageal varices noted on EGD which were banded, was on octreotide and PPI drips but were stopped in favor of daily PPI by GI. Will have close GI follow-up on discharge, may have repeat EGD in the next several months to reevaluate the varices. Patient has an AFP that is pending, was educated on importance of becoming alcohol free in the setting of new cirrhosis. She will need a repeat AFP and liver ultrasound in 6 months, and repeat GI as described. Hoarseness: Has had this since carotid revascularization, recommended ENT/PCP follow-up, do not recommend further evaluation while inpatient. No dysphagia. Plan otherwise as described above Coding Level of Care Code 53284 INP/OBS DISCH >30 MIN Diagnoses Acute GI bleeding K92.2 Dysphonia R49.0 Internal carotid artery stent present Z95.828 Hypothyroidism E03.9 Hypertension I10 Anxiety F41.9 Esophageal 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
== END 2022-11-20 14:39 | disposition home or self-care (01) | DRG 369 ==
LOC: 3E 11:01 → ED 11:01 → SUATTDRO 13:50 → 3E 16:59 → SUATTDRO 11-19 13:38

== ENCOUNTER 2022-12-23 16:17 | Observation (INO) ==
--- NOTE | 2022-12-23 16:27 | ED Triage Note ---
Date of Service December 23, 2022 History of Present Illness This patient was briefly evaluated while in triage. An abbreviated physical exam was performed. This patient is a 77-year-old Female who presents to the ED for evaluation of dizziness, trouble breathing and dyspnea. She notes associated cough. No fevers. Recent esophageal varices banded in November. Had bloodwork and chest xray today. Hemoglobin dropping per review of records. Physical Exam GENERAL: 77 year old female. In no acute distress. SKIN: No lesions or rashes. HEART: Regular rate and rhythm. LUNGS: Clear to auscultation. ABDOMEN: Bowel sounds normoactive. No guarding or rigidity. NEURO: Alert and oriented. No deficits. MUSCULOSKELETAL: No deformities to inspection of the extremities. PSYCH: Patient is pleasant and answers all questions appropriately. Initial orders for labs and / or imaging were placed and patient was placed in the waiting area until a bed is available. Please see further documentation for the full ED course.
[2022-12-23 17:26] LABS: Basophils # (auto) 0.07 K/uL (0-0.2); Basophils % (auto) 0.9 %; Eosinophils # (auto) 0.32 K/uL (0-0.50); Eosinophils % (auto) 4.3 %; Hemoglobin 8.2 g/dl (12.0-16.0); Immature Granulocytes # (auto) 0.04 K/uL (0.01-0.20); Immature Granulocytes % (auto) 0.5 %; Lymphocytes # (auto) 1.77 K/uL (1.2-3.4); Lymphocytes % (auto) 23.8 %; Mean Corpuscular Hemoglobin 28.6 pg (25.0-34.0); Mean Corpuscular Hgb Conc 31.5 g/dL (32.0-36.0); Mean Corpuscular Volume 90.6 fL (80.0-100.0); Mean Platelet Volume 10.9 fL (9.4-12.4); Monocytes # (auto) 1.09 K/uL (0.11-0.59); Monocytes % (auto) 14.7 %; Neutrophils # (auto) 4.14 K/uL (1.40-6.50); Neutrophils % (auto) 55.8 %; Platelet Count 170 K/uL (130-400); RDW Coefficient of Variation 14.9 % (11.5-14.5); RDW Standard Deviation 48.4 fL (36.4-46.3); Red Blood Count 2.87 M/uL (4.20-5.40); White Blood Count 7.43 K/ul (4.8-10.8)
[2022-12-23 17:37] LABS: Albumin Globulin Ratio 1.2 (0.9-2); Albumin Level 3.8 gm/dl (3.4-5.0); BUN Creatinine Ratio 18.7 (10-20); Bilirubin,Total 0.5 mg/dl (0.2-1.0); Calcium 9.3 mg/dl (8.6-10.3); Creatinine Clr Calc Pharmacy 58.3 ml/min; Est GFR (African American) 88.5 ml/min; Est GFR (Non-African American) 76.3 ml/min; Globulin 3.1 gm/dl (2.5-4.0); Potassium 3.8 mmol/L (3.5-5.1); Total Protein 6.9 gm/dl (6.0-8.3)
[2022-12-23 17:44] LABS: Troponin I High Sensitivity 5.8 pg/ml (0-14)
[2022-12-23 17:49] LABS: Partial Thromboplastin Time 28.1 Seconds (21.0-31.0); Prothrombin Time 11.4 Seconds (9.0-12.0)
[2022-12-23] MEDS ORDERED: PANTOPRAZOLE BOLUS/DRIP 1 EACH IV STA (18:00)
[2022-12-23] MEDS ORDERED: OCTREOTIDE ACETATE 50 MCG in SYRINGE 9.5 ML IV STA (18:00)
[2022-12-23] MEDS ORDERED: PANTOprazole 80 MG in DEXTROSE 5% 100 ML IV ONE (18:00)
[2022-12-23] MEDS ORDERED: STAT IV STA (18:00)
[2022-12-23] MEDS ORDERED: cefTRIAXone SODIUM 1,000 MG in DEXTROSE 5% AD-VAN 50 ML IV STA (18:01)
--- NOTE | 2022-12-23 18:02 | Emergency Department Note ---
Impression & Plan Melena ADMIT ED Provider Note HPI: The patient is a 77-year-old female with history of carotid artery stenosis, status post endarterectomy in October 2022, history of esophageal varices status post banding in November 2022, history of cirrhosis, presents the emergency departme with a chief complaint of 3 days of dark stool. Patient states she had some outpatient lab work done today that showed a low hemoglobin and therefore she was referred to the ED for further assessment. Patient denies any hematemesis, denies any diarrhea. On arrival here to the ED the patient is hemodynamically stable, she is in no acute distress on my initial assessment. ROS: - Per HPI Differential Diagnosis: Esophageal variceal bleed, peptic ulcer disease, inflammatory bowel disease, amongst other potential pathologies. *Outpatient medications and allergy history reviewed. *Pertinent external medical records reviewed. PE: General: Alert HEENT: Normocephalic, trachea midline Eyes: Extraocular eye movement is intact, no scleral erythema Pulmonary: Clear to auscultation bilaterally, no wheezing Cardio: Regular rate and rhythm GI: Abdomen is soft to palpation, rectal examination shows no gross bleeding, occult stool testing is positive : No suprapubic tenderness MSK: No evidence of trauma or malformation of the extremities, no edema Skin: No evidence of rash Neuro: Alert, no focal deficits Psychiatric: Cooperative rehabilitation services manager: (As interpreted by myself): - An order was placed for continuous cardiac monitoring - Patient was noted to be in sinus rhythm with a rate of 80 EKG: (As interpreted by myself): Rate: 79 Rhythm: Normal sinus rhythm Intervals: Within normal limits ST changes: No ST elevation Time: 1644 Interventions provided in ED: -IV Protonix bolus and drip, IV octreotide bolus and drip, IV ceftriaxone Medical Decision Making: Patient presented to the emergency department the chief complaint of melena and low hemoglobin on outpatient lab work. On arrival here to the ED the patient is hemodynamically stable, she does have a history of cirrhosis as well as esophageal varices that previously required banding about 1 month ago here at [facility] by Dr. Khan. IV was established and lab work obtained, patient was maintained on cna gna, lab work does show a hemoglobin of 8.2 which is in comparison to hemoglobin of 9.6 on 12/05. Type and screen was ordered. Patient was started on IV Protonix bolus and drip and was also ordered IV octreotide and IV ceftriaxone for prophylaxis. Patient's abdomen is soft and nontender on my exam therefore CT imaging was not obtained. Occult stool testing is positive, I discussed the patient's case with on-call gastroenterology, Dr. Khan, who is in agreement for routine consultation as he is familiar with the patient. Given her current hemodynamic stability without gross bleeding emergent endoscopy is not thought to be necessary. Case was then discussed with the on-call midlevel provider for [facility] hospitalist service, Jordan Ace PA-C, and the patient was placed for admission in stable condition for further management Consultants: -Hospitalist service -Gastroenterology, Dr. Khan Disposition discussion held by myself with: Patient Diagnosis: 1. Lower GI bleed, acute 2. Anemia, acute on chronic 3. History of esophageal varices, status post banding Disposition: ADMIT Shakir Kelly DO Emergency Medicine Past Med/Surg History Medical History Anxiety Carotid artery stenosis Encounter for pre-operative examination Gastric reflux History of anesthesia reaction History of COVID-19 Hypertension Hypothyroidism Internal carotid artery stent present Stroke Transient ischemic attack (TIA) Surgical History History of colonoscopy S/P partial hysterectomy S/P wisdom tooth extraction Family History Mother Diabetes Aneurysm Sister Ovarian cancer Other No family history of adverse response to anesthesia Denies family history of Prostate cancer Myocardial infarction Breast cancer Colorectal cancer Hypertension Social History Smoking Status: Former smoker Tobacco Type: Cigarettes Age Started Using Tobacco: 11; Age Quit Using Tobacco: 69; packs per day: 0.5; Second Hand Exposure: No; Do You Dip or Chew Tobacco: No; Hx Alcohol Use: Yes Alcohol type: wine Alcohol Intake Frequency: Monthly or Less Hx Substance Use: No Preferred Language: Turkish Communication Ability: Effective Visual Impairment: No Limitations Hearing Ability: Normal Para Educator Required: No Beliefs That Will Affect Care: None marital status: / Current Living Situation: Alone current occupational status: retired 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 Feels Safe at Home: Yes Childhood Exposure to Second-Hand Smoke: Yes Diet: regular Diet Comment: regular Dental Care, Regularly: No Physical Activity Frequency: 3-4 Times per Week Seatbelt Use: always Sunscreen Use: No Assistive Devices: Cane Allergies Allergies Allergy/AdvReac Type Severity Reaction Status Date / Time codeine AdvReac Severe Headache Verified 12/12/22 13:50 Home Meds Home Medications Medication Instructions Recorded Confirmed cetirizine 10 mg tablet (Zyrtec) 10 mg PO DAILY PRN seasonal 09/05/22 12/12/22 allergies atorvastatin 20 mg tablet (Lipitor) 20 mg PO QAM 10/28/22 12/12/22 clopidogrel 75 mg tablet (Plavix) 75 mg PO QAM 10/28/22 12/12/22 levothyroxine 50 mcg tablet 50 mcg PO QAM 10/28/22 12/12/22 omeprazole 40 mg capsule,delayed 40 mg PO QAM 10/28/22 12/12/22 release fluoxetine 40 mg capsule (Prozac) 40 mg PO QAM 11/03/22 12/12/22 Previous Rx's Medication Instructions Recorded triamterene 37.5 1 cap PO QAM #90 caps 10/31/22 mg-hydrochlorothiazide 25 mg capsule tramadol 50 mg tablet 50 mg PO BID PRN pain #10 tabs 11/04/22 aspirin 81 mg tablet,delayed 81 mg PO DAILY #30 tabs 11/20/22 release ferrous sulfate 325 mg (65 mg 325 mg PO DAILY #30 tabs 12/12/22 iron) tablet Results & Data (ED) Vital Signs Vital Signs - 24 hr 12/23/22 16:25 12/23/22 17:34 12/23/22 17:35 Temperature 36.5 C Temperature Source Temporal Artery Scan Pulse Rate 84 75 Pulse Rate [Left Apical] 76 Pulse Rhythm Regular Pulse Strength Normal Respiratory Rate 20 23 Respiratory Effort / Characteristics Non-Labored Spontaneous Respiratory Depth Normal Respiratory Pattern Regular Blood Pressure 162/63 H Blood Pressure [Right Arm] 156/81 H Blood Pressure Mean 96 Blood Pressure Mean [Right Arm] 106 Blood Pressure Position Sitting Pulse Oximetry 94 98 Oxygen Delivery Method Room Air Room Air Sepsis Recent Fever Within 48 Hours No Sepsis New/Unexplained Change in Mental Status No Sepsis Action Taken by Nursing No Action Required Laboratory Data 12/23/22 16:45 12/23/22 16:45 Lab Results 12/23/22 12/23/22 12/23/22 Range/Units 16:45 16:45 16:45 WBC 7.43 (4.8-10.8) K/ul RBC 2.87 L (4.20-5.40) M/uL Hgb 8.2 L (12.0-16.0) g/dl Hct 26.0 L (37.0-47.0) % MCV 90.6 (80.0-100.0) fL MCH 28.6 (25.0-34.0) pg MCHC 31.5 L (32.0-36.0) g/dL RDW Std Deviation 48.4 H (36.4-46.3) fL RDW Coeff of Shira 14.9 H (11.5-14.5) % Plt Count 170 (130-400) K/uL MPV 10.9 (9.4-12.4) fL Immature Gran % (Auto) 0.5 % Neut % (Auto) 55.8 % Lymph % (Auto) 23.8 % [place] % (Auto) 14.7 % Eos % (Auto) 4.3 % Baso % (Auto) 0.9 % Neut # (Auto) 4.14 (1.40-6.50) K/uL Lymph # (Auto) 1.77 (1.2-3.4) K/uL [place] # (Auto) 1.09 H (0.11-0.59) K/uL Eos # (Auto) 0.32 (0-0.50) K/uL Baso # (Auto) 0.07 (0-0.2) K/uL Immature Gran # (Auto) 0.04 (0.01-0.20) K/uL PT (9.0-12.0) Seconds INR (0.9-1.1) APTT (21.0-31.0) Seconds PTT Ratio Sodium 137 (136-145) mmol/L Potassium 3.8 (3.5-5.1) mmol/L Chloride 105 (98-107) mmol/L Carbon Dioxide 23 (21-32) mmol/L Anion Gap 9 (3-11) BUN 14 (6-23) mg/dl Creatinine 0.75 (0.6-1.2) mg/dl Est Cr Clr Drug Dosing 58.3 ml/min Est GFR ( Amer) 88.5 ml/min Est GFR (Non-Af Amer) 76.3 ml/min BUN/Creatinine Ratio 18.7 (10-20) Glucose 126 H (70-99(Fasting)) mg/dl Calcium 9.3 (8.6-10.3) mg/dl Total Bilirubin 0.5 (0.2-1.0) mg/dl AST 32 (13-39) U/L ALT 16 (7-52) U/L Alkaline Phosphatase 154 H (34-104) U/L Troponin I High Sens 5.8 (0-14) pg/ml Total Protein 6.9 (6.0-8.3) gm/dl Albumin 3.8 (3.4-5.0) gm/dl Globulin 3.1 (2.5-4.0) gm/dl Albumin/Globulin Ratio 1.2 (0.9-2) TSH (0.300-4.500) uIu/ml Blood Type A Positive Antibody Screen NEGATIVE 12/23/22 12/23/22 Range/Units 16:45 16:45 WBC (4.8-10.8) K/ul RBC (4.20-5.40) M/uL Hgb (12.0-16.0) g/dl Hct (37.0-47.0) % MCV (80.0-100.0) fL MCH (25.0-34.0) pg MCHC (32.0-36.0) g/dL RDW Std Deviation (36.4-46.3) fL RDW Coeff of Shira (11.5-14.5) % Plt Count (130-400) K/uL MPV (9.4-12.4) fL Immature Gran % (Auto) % Neut % (Auto) % Lymph % (Auto) % [place] % (Auto) % Eos % (Auto) % Baso % (Auto) % Neut # (Auto) (1.40-6.50) K/uL Lymph # (Auto) (1.2-3.4) K/uL [place] # (Auto) (0.11-0.59) K/uL Eos # (Auto) (0-0.50) K/uL Baso # (Auto) (0-0.2) K/uL Immature Gran # (Auto) (0.01-0.20) K/uL PT 11.4 (9.0-12.0) Seconds INR 1.0 (0.9-1.1) APTT 28.1 (21.0-31.0) Seconds PTT Ratio 1.0 Sodium (136-145) mmol/L Potassium (3.5-5.1) mmol/L Chloride (98-107) mmol/L Carbon Dioxide (21-32) mmol/L Anion Gap (3-11) BUN (6-23) mg/dl Creatinine (0.6-1.2) mg/dl Est Cr Clr Drug Dosing ml/min Est GFR ( Amer) ml/min Est GFR (Non-Af Amer) ml/min BUN/Creatinine Ratio (10-20) Glucose (70-99(Fasting)) mg/dl Calcium (8.6-10.3) mg/dl Total Bilirubin (0.2-1.0) mg/dl AST (13-39) U/L ALT (7-52) U/L Alkaline Phosphatase (34-104) U/L Troponin I High Sens (0-14) pg/ml Total Protein (6.0-8.3) gm/dl Albumin (3.4-5.0) gm/dl Globulin (2.5-4.0) gm/dl Albumin/Globulin Ratio (0.9-2) TSH 1.641 (0.300-4.500) uIu/ml Blood Type Antibody Screen Administered Medications Discontinued Medications Pantoprazole Sodium 80 mg/ (Dextrose) 120 mls @ 400 mls/hr IV NOW ONE Stop: 12/23/22 18:17 Last Admin: 12/23/22 19:00 Dose: 400 mls/hr Documented By: [facility] Discharge Plan Visit Data Chief Complaint: Referred by Doctor Stated Complaint: REF BY DOC,ABNORMAL LABS,BLEEDING INTERNALLY ED Provider: Shakir Kelly Discharge Problem: Melena Forms Stand Alone Forms: My [facility] FTBpro Prescriptions Prescriptions: No Action triamterene-hydrochlorothiazid 37.5-25 mg capsule 1 cap PO QAM Qty: 90 1RF cetirizine [Zyrtec] 10 mg tablet 10 mg PO DAILY PRN (Reason: seasonal allergies) ferrous sulfate 325 mg (65 mg iron) tablet 325 mg PO DAILY Qty: 30 1RF aspirin 81 mg tablet,delayed release (DR/EC) 81 mg PO DAILY Qty: 30 0RF atorvastatin [Lipitor] 20 mg Tablet 20 mg PO QAM omeprazole 40 mg capsule,delayed release(DR/EC) 40 mg PO QAM levothyroxine 50 mcg tablet 50 mcg PO QAM clopidogrel [Plavix] 75 mg Tablet 75 mg PO QAM fluoxetine [Prozac] 40 mg capsule 40 mg PO QAM tramadol 50 mg tablet 50 mg PO BID PRN (Reason: pain) Qty: 10 0RF Referrals Referrals: Clara Weathers MD [Primary Care Provider] -
--- NOTE | 2022-12-23 19:05 | History & Physical Report ---
Date of Service December 23, 2022 Assessment & Plan (1) Melena: Plan: -Admit to the PCU on tele and continuous pulse oximetry -Currently stable -Patient has been having melanotic stool with a declining Hgb over the past week -PCP sent her to the ED for further evaluation -Hgb currently at 8.2 -Recent admission last month for large GI bleed, found to have cirrhosis with large esophageal varices and gastric AVM. Underwent EGD for banding of varices and treatment of AVM -Keep NPO, continue octreotide and pantoprazole drip -S/P one dose of Ceftriaxone in the ED; continuing empirically for the next 48 hours due to GI bleed with Varcies -GI consulted -Obtained blood consent, type and screen on admission -Will have 2 units of PRBC's prepared and held in case of increased bleeding in the near future -Hold aspirin and plavix for now -BL SCD's for DVT PPX -AM CBC, CMP, Mag, PT/INR (2) Chest pain: Plan: -Patient has noted intermittent, substernal chest pain daily since her last admission in November -Pain is reproducible on palpation, ECG today is without acute ST segment or T- wave changes, high sen trop in the ED WNL -Pain is likely musculoskeletal and or related to her recent hx with of GERD, esophageal varices, and recent EDG with banding -Continue to monitor on tele -PRN IV tylenol (max of 2 gm in 24 hours) for now (3) Internal carotid artery stent present: Plan: -Holding aspirin and plavix at this time, last dose of both was this am -Patient is greater than 30 days out from her right carotid artery stenting which reduces her risk of compilation while having to hold antiplatelets -Would resume both whenever GI is comfortable with her bleeding risk (4) Hypertension: Plan: -Stable -Hold triamterene-HCTZ for now tro avoid hypotension with GI bleed (5) Esophageal varices in cirrhosis: Plan: -See melena -LFT's are stable -Does not appear significantly volume overloaded -FU with GI consult tomorrow for further management (6) Paralysis of right vocal cord: Plan: -Occurred after recent right carotid artery stent placement -Contnue to monitor (7) Anxiety: Plan: -Continue prozac when she is stable for PO intake (8) Hypothyroidism: Plan: -Contiune levothyroxine when stable for PO intake Plan The patient was discussed with Dr. Boogie at the time of the admission History of Present Illness Chief Complaint: Referred by PCP for progressively decreased hgb Primary Care Provider: Clara Weathers MD Suri is a 77 year old female with a PMH significant for recently diagnosed Cirrhosis (Workup still in process) with large esophageal varices and gastric AVM, S/P right transcarotid artery revascularization with Dr. Khan on 11/03 on aspirin and plavix, previous alcohol abuse, hypothyroidism, and dysphonia who presented to the [facility] ED on 12/23 at the recommendation of her PCP due to continued declining Hgb with melena in the setting of recent upper GI bleed. In the ED, vitals remained stable. Labs were significant for a Hgb of 8.2 (down from 9.6 on 12/05), stable platelets, alk phos of 154 but otherwise stable LFT's. Chest xray was read as "No significant change compared to the prior stud y. No acute process.". The ED staff spoke with Dr. Khan who recommended admission, they will see the patient tomorrow and will likely perform another EGD. Prior to admission the patient was started on a PPI, octreotide drip, and given a dose of Ceftriaxone. At the time of the admission the patient was lying in bed in no acute distress. She states that over the past few days she has noticed melanotic stool and increased fatigue. She has been taking all medications as prescribed including her aspirin and plavix. She continues to abstain from alcohol. She denies recent fever, chills, SOB, abd pain, nausea, vomiting, diarrhea, dysuria hematuria, LE swelling, and recent falls/trauma. When going over ROS questions she states that she has had intermitted periods of substernal chest pain since her last admission. She states that they are not associated with any specific activity, can happen at rest or with exertion, last for approximately 15-30 min, and has not taken anything for the pain. These symptoms have been occurring since her last discharge. When asked, she states that her last episode of the pain was earlier in the ED but denies current pain. She states her PCP did ECG's outpatient and they were normal. We discussed the need to hold her aspirin/plavix at this time as her risk of life threatening bleed is higher than possible clotting of her recently placed right carotid artery stenting and she is in agreement with holding them for now. We discussed code status, she wishes to be a full code and for her children to make medical decisions for her if she cannot make them herself. Please refer to Dr. Cano's attestation for any changes to the treatment plan Allergies Allergy/AdvReac Type Severity Reaction Status Date / Time codeine AdvReac Severe Headache Verified 12/12/22 13:50 Home Medications Medication Instructions Recorded Confirmed Type cetirizine 10 mg tablet (Zyrtec) 10 mg PO DAILY PRN seasonal 09/05/22 12/23/22 History allergies atorvastatin 20 mg tablet (Lipitor) 20 mg PO QAM 10/28/22 12/23/22 History clopidogrel 75 mg tablet (Plavix) 75 mg PO QAM 10/28/22 12/23/22 History levothyroxine 50 mcg tablet 50 mcg PO QAM 10/28/22 12/23/22 History omeprazole 40 mg capsule,delayed 40 mg PO QAM 10/28/22 12/23/22 History release triamterene 37.5 1 cap PO QAM #90 caps 10/31/22 12/23/22 Rx mg-hydrochlorothiazide 25 mg capsule fluoxetine 40 mg capsule (Prozac) 40 mg PO QAM 11/03/22 12/23/22 History aspirin 81 mg tablet,delayed 81 mg PO DAILY #30 tabs 11/20/22 12/23/22 Rx release ferrous sulfate 325 mg (65 mg 325 mg PO DAILY #30 tabs 12/12/22 12/23/22 Rx iron) tablet Past Med/Surg History Medical History Anxiety Carotid artery stenosis Encounter for pre-operative examination Gastric reflux History of anesthesia reaction History of COVID-19 Hypertension Hypothyroidism Internal carotid artery stent present Stroke Transient ischemic attack (TIA) Surgical History History of colonoscopy S/P partial hysterectomy S/P wisdom tooth extraction Family History Mother Diabetes Aneurysm Sister Ovarian cancer Other No family history of adverse response to anesthesia Denies family history of Prostate cancer Myocardial infarction Breast cancer Colorectal cancer Hypertension Social History Smoking Status: Former smoker Tobacco Type: Cigarettes Age Started Using Tobacco: 11; Age Quit Using Tobacco: 69; packs per day: 0.5; Smoking End Date: 2014; Second Hand Exposure: No; Do You Dip or Chew Tobacco: No; Hx Alcohol Use: Yes Alcohol type: wine Alcohol Intake Frequency: Monthly or Less Hx Substance Use: No Preferred Language: Sri Lankan Communication Ability: Effective Visual Impairment: No Limitations Hearing Ability: Normal Technical Publications Manager Required: No Beliefs That Will Affect Care: None marital status: / Current Living Situation: Alone Current Living Situation Comment: Lives alone in apartment above sister. current occupational status: retired current occupation: used to work as an observation assistant of a retail store Other Information That Helps Us Care for You: No Feels Safe at Home: Yes Safety Concerns: Feels Safe At This Time Childhood Exposure to Second-Hand Smoke: Yes Diet: regular Diet Comment: regular Dental Care, Regularly: No Physical Activity Frequency: 3-4 Times per Week Seatbelt Use: always Sunscreen Use: No Assistive Devices: None Physical Exam Physical Exam: Physical Exam: General: In no acute distress, stated age, well-nourished, good hygiene HEENT: Normocephalic, atraumatic, no scleral icterus, pupils around round, symmetrical, and reactive to light, moist mucus membranes, trachea midline, no thyromegaly Chest/Pulm: Patient with reproducible pain on palpation of the substernal region without crepitus, No respiratory distress, symmetrical chest expansion, clear breath sounds throughout Cardiac: RRR, systolic murmur noted Abdomen: Negative for ascites and bruising, normoactive bowel sounds, soft, non-tender to palpation throughout Musculoskeletal: Symmetrical and without signs of acute trauma, upper and lower extremities with full ROM, no atrophy, spasticity, or flaccidity Extremities: Radial, dorsalis pedis, and posterior tibial pulses are intact and symmetrical, no edema noted in the BL LE's Skin: Warm, dry, no rashes , lesions, or scars noted Neuro: Alert and oriented to person, place, month, year, and president, no focal defects, CN II-XII tested and intact, no tremors noted Psych: No acute distress, calm and cooperative during the exam Results & Data Results & Data Vital Signs (Past 12 Hours) Vital Signs Temp Pulse Pulse Resp BP BP Pulse Ox 12/23/22 17:35 75 12/23/22 17:34 76 23 156/81 H 98 12/23/22 16:25 36.5 C 84 20 162/63 H 94 O2 Del Method 12/23/22 17:35 12/23/22 17:34 Room Air 12/23/22 16:25 Room Air Laboratory Results Abnormal lab results 12/23/22 12/23/22 12/23/22 Range/Units 16:45 16:45 16:45 RBC 2.87 L (4.20-5.40) M/uL Hgb 8.2 L (12.0-16.0) g/dl Hct 26.0 L (37.0-47.0) % MCHC 31.5 L (32.0-36.0) g/dL RDW Std Deviation 48.4 H (36.4-46.3) fL RDW Coeff of Shira 14.9 H (11.5-14.5) % Dewitt # (Auto) 1.09 H (0.11-0.59) K/uL Glucose 126 H (70-99(Fasting)) mg/dl Alkaline Phosphatase 154 H (34-104) U/L Crossmatch See Detail Diagnostic Findings XR chest 2V PA/lateral HISTORY: worsening cough, h/o aspiration, r/o pneumonia COMPARISON: Chest 11/17/2022. FINDINGS: No pneumothorax. No pleural effusions. The cardiac silhouette remains mildly enlarged. Mild chronic interstitial thickening persists. No new focal lung consolidations to suggest a pneumonia. No evidence for pulmonary edema. No acute fractures identified. IMPRESSION: No significant change compared to the prior study. No acute process. ACT 112: Negative or not required by law. Electronically signed by: Corona Dallas M.D. 12/23/2022 9:58 AM Dictated:12/23/22956 Transcribed: 12/23/22956 ECG Additional Comments: Normal sinus rhythm Normal ECG When compared with ECG of 30-OCT-2022 13:18, No significant change was found Code Status & VTE Plan Code Status Full code Supervising Physician Co-Signing Physician Notes Patient seen and examined, chart reviewed, case discussed with ILANA Ace and I agree with the assessment and plan as above PG Care Time/CCT Total # of Minutes Spent Total Time Spent with Patient: Total time spent is greater than 50% in coordination of care (as documented) at patient's floor/unit and/or counseling patient: Coding [place] [address] INT INP/OBS CARE 3/75MIN Patient Type Established Medical Decision Making High Complexity Diagnoses Melena K92.1 Chest pain R07.9 Internal carotid artery stent present Z95.828 Hypertension I10 Esophageal 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 Paralysis of right vocal cord J38.01 Anxiety F41.9 Hypothyroidism E03.9
[2022-12-23] MEDS: OCTREOTIDE ACETATE 500 MCG in DEXTROSE 5% 100 ML IV SCH (19:10)
[2022-12-23] MEDS: PANTOprazole 40 MG in DEXTROSE 5% 100 ML IV SCH (19:11)
[2022-12-23] MEDS ORDERED: SODIUM CHLORIDE 0.9% 250 ML IV PRN (20:26)
[2022-12-23] MEDS ORDERED: ONDANSETRON INJ 2 MG/ML 2 ML VIAL IV PRN (20:37)
[2022-12-23] MEDS ORDERED: ACETAMINOPHEN 1,000 MG/100 ML VIAL IV STA (20:46)
[2022-12-23] MEDS ORDERED: ACETAMINOPHEN 1,000 MG/100 ML VIAL IV PRN (21:31)
[2022-12-24] MEDS: PANTOprazole 40 MG in DEXTROSE 5% 100 ML IV SCH ×6 (00:06→23:39)
[2022-12-24] MEDS: OCTREOTIDE ACETATE 500 MCG in DEXTROSE 5% 100 ML IV SCH ×3 (03:41→23:38)
[2022-12-24 06:52] LABS: Basophils # (auto) 0.06 K/uL (0-0.2); Basophils % (auto) 1.1 %; Eosinophils # (auto) 0.33 K/uL (0-0.50); Eosinophils % (auto) 6.2 %; Hematocrit (blood only) 26.6 % (37.0-47.0); Hemoglobin 8.3 g/dl (12.0-16.0); Immature Granulocytes # (auto) 0.03 K/uL (0.01-0.20); Immature Granulocytes % (auto) 0.6 %; Lymphocytes % (auto) 24.5 %; Mean Corpuscular Hemoglobin 28.5 pg (25.0-34.0); Mean Corpuscular Hgb Conc 31.2 g/dL (32.0-36.0); Mean Corpuscular Volume 91.4 fL (80.0-100.0); Mean Platelet Volume 10.8 fL (9.4-12.4); Monocytes # (auto) 0.63 K/uL (0.11-0.59); Monocytes % (auto) 11.9 %; Neutrophils # (auto) 2.96 K/uL (1.40-6.50); Neutrophils % (auto) 55.7 %; Platelet Count 153 K/uL (130-400); RDW Standard Deviation 49.4 fL (36.4-46.3); Red Blood Count 2.91 M/uL (4.20-5.40); White Blood Count 5.31 K/ul (4.8-10.8)
[2022-12-24 07:11] LABS: Albumin Globulin Ratio 1.2 (0.9-2); Albumin Level 3.4 gm/dl (3.4-5.0); BUN Creatinine Ratio 13.7 (10-20); Bilirubin,Total 0.7 mg/dl (0.2-1.0); Calcium 8.4 mg/dl (8.6-10.3); Creatinine Clr Calc Pharmacy 59.1 ml/min; Est GFR (African American) 91.4 ml/min; Est GFR (Non-African American) 78.9 ml/min; Globulin 2.8 gm/dl (2.5-4.0); INR 1.1 (0.9-1.1); Magnesium 1.8 mg/dl (1.7-2.4); Potassium 4.1 mmol/L (3.5-5.1); Prothrombin Time 11.8 Seconds (9.0-12.0); Total Protein 6.2 gm/dl (6.0-8.3)
[2022-12-24 07:11] LABS: Appearance Urine Clear (Clear); Bilirubin Urine Negative (Negative); Blood Urine Negative (Negative); Color Urine Yellow; Glucose Urine UA Negative (Negative); Ketones Urine Negative (Negative); Leukocyte Esterase Urine Negative (Negative); Nitrite Urine Negative (Negative); Protein Urine Negative (Negative); Specific Gravity Urine 1.011 (1.000-1.030); Urobilinogen Urine Negative (Negative); pH Urine 6.5 (4.5-7.5)
--- NOTE | 2022-12-24 07:11 | Hospitalist Progress Note ---
Date of Service December 24, 2022 Assessment & Plan (1) Melena: (2) Cirrhosis: (3) Esophageal varices in cirrhosis: (4) Chest pain: (5) Symptomatic anemia: (6) Dysphonia: (7) Internal carotid artery stent present: Plan #Melena -in setting of cirrhosis and hx of esophageal varices -Hb Stable, 8.3 today from 8.2 on 12/23/22 -Hold ASA, plavix -Appreciate GI recs, hold ASA, plavix for total of 7 days -EGD as outpatient, unless clinical condition deteriorates #Cirrhosis -workup in progress as outpatient -Continue octreotide, pantoprazole #Esophageal Varices -possible repeat source of GI bleed -s/p EGD variceal banding and gastric AVM treatment #Chest Pain -EKG negative for any acute process in ED -Likely MSK vs. hx of GERD/esophageal varices/recent EGD with banding -Continue tele monitoring #Symptomatic Anemia -Hgb today 8.3 -Monitor CBC q6 hr and for clinical signs of further bleeding -Transfuse as needed #ICA Stent Present -plan to hold ASA, plavix as she is greater than 30 days post-op and risk of bleed>risk of clot #Dysphonia -stable -2/2 ICA stent placement DVT PPx b/l SCDs Admission and Anticipated Discharge Date Admission Date: December 23, 2022 Supervising Physician Co-Signing Physician Notes ATTESTATION I also saw the patient and confirmed robert portions of the history and exam. I agree with the impression and plan in the resident documentation, and as summarized below. Upon our midmorning exam, the patient is semireclined in bed. She has no complaints. She is hungry. She has been n.p.o. since admission given the possibility of EGD today. EXAM 152/66, 68, 18, 36.5, 94% on room air Pleasant alert. No distress. No new complaints. Looks membranes pink and warm Neck is supple Heart regular Lungs clear with nonlabored respirations DATA Labs Most recent hemoglobin 8.3 Sodium 136, BUN 10, creatinine 0.73 Alkaline phosphatase 144 Imaging Chest x-ray dated 12/23/2022 shows no significant change to prior study, no acute process Micro Blood cultures dated 12/23/2022 are pending EKG completed upon initial presentation shows normal sinus rhythm, no change compared to ECG of 10/30/2022 IMPRESSION & PLAN Melena Esophageal varices Cirrhosis Anemia History of carotid artery stent Appreciate gastroenterology consultation Hold Plavix and aspirin Continue PPI and octreotide Monitor hemoglobin Additional per resident documentation Subjective 77 yo female PMHx recently diagnosed cirrhosis (workup in progress) with large esophageal varices and gastric AVM, s/p r-transcarotid artery revascularization 11/03 on ASA and plavix, prior EtOH abuse, hypothyroidism, and dysphonia. Admitted 12/23/22 2/2 declining Hgb with melena in the setting of recent GI bleed. Hgb on admission was 8.2 (prior was 9.6 on 12/05) Platelets stable, alk phos 154, otherwise stable LFTs Started on PPI, octreotide drip, given ceftriaxone x1. Over the last few days has noticed melanotic stools and increased fatigue. Taking all home meds as prescribed, including ASA and plavix. Has continued to abstain from EtOH This AM: resting comfortably in bed in NAD. (+) fatigue, melanotic stools (-) fever, chills, CP, SOB, abd pain, N/V/D, dysuria, hematuria, LE swelling, recent trauma or falls Review of Systems Review of Systems: reviewed, as above Physical Exam Physical Exam: General: patient resting comfortably, NAD, non-toxic in appearance, AA&O x 4, answers questions appropriately and follows commands. Skin: warm, dry, intact, no rashes or lesions HEENT: NC/AT, PERRL, EOMI, anicteric sclera, conjunctiva without injection, external ear normal to inspection and nontender, nares patent, moist mucus membranes, dentures present, no oropharyngeal lesions, neck supple, trachea midline, no LAD, no thyromegaly, no JVD Heart: +S1/S2, regular, no m/r/g Lungs: equal air entry bilaterally, no rales/rhonchi/wheezes Abd: +BS, soft, NT/ND, no masses/organomegaly/ascites Ext: warm, 2+ pulses in UE/LE bilaterally, no clubbing/cyanosis or edema Neuro: nonfocal, patient AA&O x 4, speech intact, no facial droop, moving all extremities on command with equal strength 5/5 Results & Data Results & Data Vital Signs (Past 12 Hours) Vital Signs Temp Pulse Pulse Pulse Resp BP BP 12/24/22 02:51 36.5 C 72 18 145/68 H 12/23/22 22:56 81 12/23/22 22:47 36.8 C 78 18 149/74 H 12/23/22 21:35 12/23/22 21:37 36.8 C 80 20 166/71 H 12/23/22 21:31 90 12/23/22 20:30 83 24 171/81 H 12/23/22 20:26 81 24 171/82 H 12/23/22 20:00 80 24 12/23/22 19:30 77 19 12/23/22 20:29 12/23/22 19:24 Pulse Ox O2 Del Method O2 Flow Rate 12/24/22 02:51 92 Room Air 12/23/22 22:56 12/23/22 22:47 93 Room Air 12/23/22 21:35 Room Air 12/23/22 21:37 94 Room Air 12/23/22 21:31 12/23/22 20:30 99 Room Air 12/23/22 20:26 100 Room Air 12/23/22 20:00 99 Nasal Cannula 2 12/23/22 19:30 95 Nasal Cannula 2 12/23/22 20:29 100 Room Air 2 12/23/22 19:24 80 L Nasal Cannula 0 Laboratory Results Abnormal lab results 12/23/22 12/23/22 12/23/22 Range/Units 16:45 16:45 16:45 RBC 2.87 L (4.20-5.40) M/uL Hgb 8.2 L (12.0-16.0) g/dl Hct 26.0 L (37.0-47.0) % MCHC 31.5 L (32.0-36.0) g/dL RDW Std Deviation 48.4 H (36.4-46.3) fL RDW Coeff of Shira 14.9 H (11.5-14.5) % Barrow # (Auto) 1.09 H (0.11-0.59) K/uL Glucose 126 H (70-99(Fasting)) mg/dl Alkaline Phosphatase 154 H (34-104) U/L Crossmatch See Detail 12/24/22 Range/Units 06:19 RBC 2.91 L (4.20-5.40) M/uL Hgb 8.3 L (12.0-16.0) g/dl Hct 26.6 L (37.0-47.0) % MCHC 31.2 L (32.0-36.0) g/dL RDW Std Deviation 49.4 H (36.4-46.3) fL RDW Coeff of Shira 15.0 H (11.5-14.5) % Barrow # (Auto) 0.63 H (0.11-0.59) K/uL Glucose (70-99(Fasting)) mg/dl Alkaline Phosphatase (34-104) U/L Crossmatch Resident Activity Tracking Resident Involvement: Resident Care Provided Care Provided: Adult [facility]
--- NOTE | 2022-12-24 07:44 | Billing Data ---
Coding Level of Care Code 16453 INT INP/OBS CARE
--- NOTE | 2022-12-24 10:29 | Gastrointestinal Consultation ---
Date of Consultation December 24, 2022 Assessment & Plan (1) Melena: (2) Esophageal varices in cirrhosis: Plan Patient with reported melena x 3 days in the setting of iron use. Recent EGD with large esophageal varices banded and nonbleeding angiectasias in stomach treated with APC. Discussed case with Dr. Valera as well as Dr. Khan. - continue to follow hgb/hct and transfuse as needed. hgb currently stable. suspect this is a slow decline and not active bleeding given current stability in hgb. - continue to hold plavix. per ASGE guidelines, ideally plavix should be held for 7 days prior to procedures requiring variceal treatment. Given current stability, will hold off on EGD at this time and monitor how she does, though may need EGD this hospitalization. - can continue octreotide and protonix drip for now. Supervising Physician Co-Signing Physician Notes Agree with BLAKE Glover as above Patient states that she has not had any overt bleeding today. She denies any lightheadedness or dizziness. Her Hgb improved from 8.2 to 8.3 this AM Abd: Soft, NT, ND, +BS Plavix on Hold at this time Continue current therapy with Octreotide and Protonix gtt If H/H would worsen would need to proceed with EGD during this hospitalization, though not ideal with recent Plavix therapy. History of Present Illness Reason for Consultation: Lower GIB Requesting Physician: Shakir Kelly DO Attending Physician: Alphonse Lemus DO History of Present Illness Patient is a 77 year old female with a PMH significant for Cirrhosis (patient admits to heavy etoh use in past) with large esophageal varices and gastric AVM, S/P right transcarotid artery revascularization on 11/03 on aspirin and plavix, previous alcohol abuse, hypothyroidism, and dysphonia who presented to the [facility] ED on 12/23 at the recommendation of her PCP due to continued declining Hgb with melena in the setting of recent upper GI bleed. In the ED, vitals remained stable and she tested hemoccult positive. Labs were significant for a Hgb of 8.2 (down from 9.6 on 12/05), stable platelets, alk phos of 154 but otherwise stable LFT's. she tells me that she has had shortness of breath and dizziness along with dark stools over the past 3 days. she does use oral iron. she admits to 2- 3 bowel movements daily that are dark but denies any brbpr. Can get epigastric yanes that is mild in nature and comes and goes. no nsaid use. rest of gi ros unremarkable. she took her last dose of plavix yesterday. EGD 11/18/22 large esophageal varices that were banded, few nonbleeding angiectasias in stomach treated with APC, gastritis. Allergies Allergy/AdvReac Type Severity Reaction Status Date / Time codeine AdvReac Severe Headache Verified 12/12/22 13:50 Home Medications Medication Instructions Recorded Confirmed Type cetirizine 10 mg tablet (Zyrtec) 10 mg PO DAILY PRN seasonal 09/05/22 12/23/22 History allergies atorvastatin 20 mg tablet (Lipitor) 20 mg PO QAM 10/28/22 12/23/22 History clopidogrel 75 mg tablet (Plavix) 75 mg PO QAM 10/28/22 12/23/22 History levothyroxine 50 mcg tablet 50 mcg PO QAM 10/28/22 12/23/22 History omeprazole 40 mg capsule,delayed 40 mg PO QAM 10/28/22 12/23/22 History release triamterene 37.5 1 cap PO QAM #90 caps 10/31/22 12/23/22 Rx mg-hydrochlorothiazide 25 mg capsule fluoxetine 40 mg capsule (Prozac) 40 mg PO QAM 11/03/22 12/23/22 History aspirin 81 mg tablet,delayed 81 mg PO DAILY #30 tabs 11/20/22 12/23/22 Rx release ferrous sulfate 325 mg (65 mg 325 mg PO DAILY #30 tabs 12/12/22 12/23/22 Rx iron) tablet Patient History Medical History Anxiety Carotid artery stenosis Encounter for pre-operative examination Gastric reflux History of anesthesia reaction History of COVID-19 Hypertension Hypothyroidism Internal carotid artery stent present Stroke Transient ischemic attack (TIA) Surgical History History of colonoscopy S/P partial hysterectomy S/P wisdom tooth extraction Family History Mother Diabetes Aneurysm Sister Ovarian cancer Other No family history of adverse response to anesthesia Denies family history of Prostate cancer Myocardial infarction Breast cancer Colorectal cancer Hypertension Social History Smoking Status: Former smoker Tobacco Type: Cigarettes Age Started Using Tobacco: 11; Age Quit Using Tobacco: 69; packs per day: 0.5; Smoking End Date: 2014; Second Hand Exposure: No; Do You Dip or Chew Tobacco: No; Hx Alcohol Use: Yes Alcohol type: wine Alcohol Intake Frequency: Monthly or Less Hx Substance Use: No Preferred Language: Bengali Communication Ability: Effective Visual Impairment: No Limitations Hearing Ability: Normal Bail Bondsman Required: No Beliefs That Will Affect Care: None marital status: / Current Living Situation: Alone Current Living Situation Comment: Lives alone in apartment above sister. 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 Other Information That Helps Us Care for You: No Feels Safe at Home: Yes Safety Concerns: Feels Safe At This Time Childhood Exposure to Second-Hand Smoke: Yes Diet: regular Diet Comment: regular Dental Care, Regularly: No Physical Activity Frequency: 3-4 Times per Week Seatbelt Use: always Sunscreen Use: No Assistive Devices: None Review of Systems Review of Systems: All systems reviewed & are unremarkable except as noted in HPI & below Physical Exam Constitutional: WD/WN, vitals as above Respiratory: normal respiratory effort, lungs clear to auscultation Cardiovascular: RRR, no murmur, no edema Gastrointestinal (Abdomen): normal bowel sounds, soft, nontender, no hepatosplenomegaly Skin: no rashes, warm and dry Psychiatric: Orientation: alert and oriented x 3 Affect: euthymic affect Results & Data Vital Signs (Past 12 Hours) Vital Signs Temp Pulse Pulse Resp BP Pulse Ox O2 Del Method 12/24/22 08:10 73 12/24/22 07:27 97.7 F 67 18 147/68 H 93 Room Air 12/24/22 02:51 97.7 F 72 18 145/68 H 92 Room Air 12/23/22 22:56 81 12/23/22 22:47 98.2 F 78 18 149/74 H 93 Room Air PG Care Time/CCT Total # of Minutes Spent Total Time Spent with Patient: Total time spent is greater than 50% in coordination of care (as documented) at patient's floor/unit and/or counseling patient: Coding Level of Care Code 35125 INT INP/OBS CARE 2/55MIN Diagnoses Melena K92.1 Esophageal 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 Time Spent (min) 55
--- NOTE | 2022-12-24 14:10 | Electrocardiogram Report ---
Test Reason : Blood Pressure : / mmHG Vent. Rate : 079 BPM Atrial Rate : 079 BPM P-R Int : 158 ms QRS Dur : 094 ms QT Int : 404 ms P-R-T Axes : 048 013 044 degrees QTc Int : 463 ms Normal sinus rhythm Normal ECG When compared with ECG of 30-OCT-2022 13:18, No significant change was found Confirmed by Edward Ventura ([id number]) on 12/24/2022 2:09:58 PM Referred By: Clara Weathers Confirmed By:Calos Ventura
[2022-12-24] MEDS: cefTRIAXone SODIUM 2,000 MG in DEXTROSE 5% 50 ML IV SCH (19:43)
[2022-12-24] MEDS: MELATONIN 3 MG TAB PO PRN (22:25)
[2022-12-25] MEDS: PANTOprazole 40 MG in DEXTROSE 5% 100 ML IV SCH ×4 (04:50→21:02)
--- NOTE | 2022-12-25 06:53 | Hospitalist Progress Note ---
Date of Service December 25, 2022 Assessment & Plan (1) Melena: (2) Cirrhosis: (3) Esophageal varices in cirrhosis: (4) Chest pain: (5) Symptomatic anemia: (6) Dysphonia: (7) Internal carotid artery stent present: (8) RUQ abdominal pain: Plan #Melena -in setting of cirrhosis and hx of esophageal varices -Hb slightly decreased, 7.9 today from 8.3 on 12/24/22 -Hold ASA, plavix -Appreciate GI recs, hold ASA, plavix for total of 7 days -EGD as outpatient, unless clinical condition deteriorates #Cirrhosis -workup in progress as outpatient -Continue octreotide, pantoprazole #Esophageal Varices -possible repeat source of GI bleed -s/p EGD variceal banding and gastric AVM treatment #Symptomatic Anemia -Hgb today 7.9 -Monitor CBC q6 hr and for clinical signs of further bleeding -Transfuse below 7 -Continue Iron supplementation #RUQ Pain -Present for the last few day -US demonstrated known cirrhotic liver, bowel gas -No gallbladder or pancreatic abnormalities #Chest Pain -EKG negative for any acute process in ED -Likely MSK vs. hx of GERD/esophageal varices/recent EGD with banding -Continue tele monitoring #ICA Stent Present -plan to hold ASA, plavix as she is greater than 30 days post-op and risk of bleed>risk of clot #Dysphonia -stable -2/2 ICA stent placement DVT PPx b/l SCDs Admission and Anticipated Discharge Date Admission Date: December 23, 2022 Supervising Physician Co-Signing Physician Notes ATTESTATION I also saw the patient and confirmed robert portions of the history and exam. I agree with the impression and plan in the resident documentation, and as summarized below. She had some right upper quadrant tenderness upon exam this morning. Fortunately, ultrasound of the right upper quadrant showed no evidence of cholecystitis. EXAM 99/54, 68, 18, 36.5, 90% room air DATA Labs Hemoglobin 7.9, platelet count 153 Sodium 137, potassium 4.0, BUN 10, creatinine 0.73 AST 49, ALT 19, alkaline phosphatase 132 Imaging Ultrasound of the right upper quadrant demonstrates a normal-appearing ga llbladder without gallstones. Note of cirrhotic liver. Micro Blood cultures collected 12/23/2022 showed no growth at 24 hours IMPRESSION & PLAN Melena Esophageal varices Cirrhosis Anemia History of carotid artery stent Appreciate gastroenterology consultation Continue to hold Plavix and aspirin Continue PPI and octreotide Monitor hemoglobin Additional per resident documentation Subjective 77 yo female PMHx recently diagnosed cirrhosis (workup in progress) with large esophageal varices and gastric AVM, s/p r-transcarotid artery revascularization 11/03 on ASA and plavix, prior EtOH abuse, hypothyroidism, and dysphonia. Admitted 12/23/22 2/2 declining Hgb with melena in the setting of recent GI bleed. Hgb on admission was 8.2 (prior was 9.6 on 12/05) Started on PPI, octreotide drip, given ceftriaxone x1. Over the last few days has noticed melanotic stools and increased fatigue. Taking all home meds as prescribed, including ASA and plavix. Has continued to a bstain from EtOH This AM: resting comfortably in bed in NAD, having some RUQ pain present for a few days (+) fatigue, melanotic stools (-) fever, chills, CP, SOB, abd pain, N/V/D, dysuria, hematuria, LE swelling, recent trauma or falls Hgb decreased slightly to 7.9, alk phos improving to 132 from 154 Review of Systems Review of Systems: reviewed, as above Physical Exam Physical Exam: General: patient resting comfortably, NAD, non-toxic in appearance, AA&O x 4, answers questions appropriately and follows commands. Skin: warm, dry, intact, no rashes or lesions HEENT: NC/AT, PERRL, EOMI, anicteric sclera, conjunctiva without injection, external ear normal to inspection and nontender, nares patent, moist mucus membranes, dentures present, no oropharyngeal lesions, neck supple, trachea midline, no LAD, no thyromegaly, no JVD Heart: +S1/S2, regular, no m/r/g Lungs: equal air entry bilaterally, no rales/rhonchi/wheezes Abd: +BS, soft, NT/ND, no masses/organomegaly/ascites Ext: warm, 2+ pulses in UE/LE bilaterally, no clubbing/cyanosis or edema Neuro: nonfocal, patient AA&O x 4, speech intact, no facial droop, moving all extremities on command with equal strength 5/5 Results & Data Results & Data Vital Signs (Past 12 Hours) Abnormal lab results 12/24/22 12/24/22 Range/Units 06:19 06:19 RBC 2.91 L (4.20-5.40) M/uL Hgb 8.3 L (12.0-16.0) g/dl Hct 26.6 L (37.0-47.0) % MCHC 31.2 L (32.0-36.0) g/dL RDW Std Deviation 49.4 H (36.4-46.3) fL RDW Coeff of Shira 15.0 H (11.5-14.5) % Mitchell # (Auto) 0.63 H (0.11-0.59) K/uL Glucose 174 H (70-99(Fasting)) mg/dl Calcium 8.4 L (8.6-10.3) mg/dl Alkaline Phosphatase 144 H (34-104) U/L Resident Activity Tracking Resident Involvement: Resident Care Provided Care Provided: Adult Hospital Medicine
[2022-12-25 07:04] LABS: Basophils # (auto) 0.05 K/uL (0-0.2); Basophils % (auto) 0.9 %; Eosinophils # (auto) 0.38 K/uL (0-0.50); Eosinophils % (auto) 7.2 %; Hematocrit (blood only) 24.9 % (37.0-47.0); Hemoglobin 7.9 g/dl (12.0-16.0); Immature Granulocytes # (auto) 0.04 K/uL (0.01-0.20); Immature Granulocytes % (auto) 0.8 %; Lymphocytes # (auto) 1.13 K/uL (1.2-3.4); Lymphocytes % (auto) 21.3 %; Mean Corpuscular Hemoglobin 28.3 pg (25.0-34.0); Mean Corpuscular Hgb Conc 31.7 g/dL (32.0-36.0); Mean Corpuscular Volume 89.2 fL (80.0-100.0); Mean Platelet Volume 10.6 fL (9.4-12.4); Monocytes % (auto) 11.3 %; Neutrophils % (auto) 58.5 %; Platelet Count 153 K/uL (130-400); RDW Coefficient of Variation 14.9 % (11.5-14.5); RDW Standard Deviation 47.6 fL (36.4-46.3); Red Blood Count 2.79 M/uL (4.20-5.40)
[2022-12-25 07:17] LABS: Albumin Globulin Ratio 1.2 (0.9-2); Albumin Level 3.3 gm/dl (3.4-5.0); BUN Creatinine Ratio 13.7 (10-20); Bilirubin,Total 0.5 mg/dl (0.2-1.0); Calcium 7.9 mg/dl (8.6-10.3); Est GFR (African American) 91.4 ml/min; Est GFR (Non-African American) 78.9 ml/min; Globulin 2.8 gm/dl (2.5-4.0); Magnesium 1.9 mg/dl (1.7-2.4); Total Protein 6.1 gm/dl (6.0-8.3)
[2022-12-25 07:24] LABS: INR 1.1 (0.9-1.1); Prothrombin Time 11.5 Seconds (9.0-12.0)
[2022-12-25 07:37] LABS: RBC Morphology Unremarkable
[2022-12-25] MEDS: OCTREOTIDE ACETATE 500 MCG in DEXTROSE 5% 100 ML IV SCH ×2 (09:14→20:13)
--- NOTE | 2022-12-25 14:09 | Ultrasound Report ---
ABDOMINAL ULTRASOUND, RIGHT UPPER QUADRANT HISTORY: RUQ Pain, hx cirrhosis. COMPARISON: Abdomen and pelvis CT 11/17/2022. FINDINGS: Pancreas: The pancreatic tail is obscured by overlying bowel gas. The remaining portions of the pancr eas are within normal limits. Liver: Nodular contour to the liver demonstrating a heterogeneous echotexture. This consistent with c irrhosis. No hepatic masses identified. Gallbladder: No gallbladder wall thickening. No gallstones. CBD: 3 mm. Right kidney: No hydronephrosis. IMPRESSION: 1. Normal gallbladder. No gallstones. 2. Cirrhotic liver again noted. ACT 112: Negative or not required by law. Electronically signed by: Corona Dallas M.D. 12/25/2022 2:07 PM
[2022-12-25] MEDS: cefTRIAXone SODIUM 2,000 MG in DEXTROSE 5% 50 ML IV SCH (20:13)
[2022-12-25] MEDS: MELATONIN 3 MG TAB PO PRN (21:05)
[2022-12-26] MEDS: PANTOprazole 40 MG in DEXTROSE 5% 100 ML IV SCH ×3 (01:40→11:54)
[2022-12-26] MEDS: OCTREOTIDE ACETATE 500 MCG in DEXTROSE 5% 100 ML IV SCH (06:07)
--- NOTE | 2022-12-26 06:56 | Hospitalist Progress Note ---
Date of Service December 26, 2022 Assessment & Plan (1) Melena: (2) Cirrhosis: (3) Esophageal varices in cirrhosis: (4) Chest pain: (5) Symptomatic anemia: (6) Dysphonia: (7) Internal carotid artery stent present: (8) RUQ abdominal pain: Plan #Melena -in setting of cirrhosis and hx of esophageal varices -Hb slightly decreased, 7.9 today from 8.3 on 12/24/22 -Hold ASA, plavix -Appreciate GI recs, hold ASA, plavix for total of 7 days -EGD as outpatient, unless clinical condition deteriorates #Cirrhosis -workup in progress as outpatient -Continue octreotide, pantoprazole #Esophageal Varices -possible repeat source of GI bleed -s/p EGD variceal banding and gastric AVM treatment #Symptomatic Anemia -Hgb today 7.9 -Monitor CBC q6 hr and for clinical signs of further bleeding -Transfuse below 7 -Continue Iron supplementation #RUQ Pain -Present for the last few day -US demonstrated known cirrhotic liver, bowel gas -No gallbladder or pancreatic abnormalities #Chest Pain -EKG negative for any acute process in ED -Likely MSK vs. hx of GERD/esophageal varices/recent EGD with banding -Continue tele monitoring #ICA Stent Present -plan to hold ASA, plavix as she is greater than 30 days post-op and risk of bleed>risk of clot #Dysphonia -stable -2/2 ICA stent placement DVT PPx b/l SCDs Admission and Anticipated Discharge Date Admission Date: December 25, 2022 Supervising Physician Co-Signing Physician Notes I personally examined the patient and verified all robert points of history and exam, discussed case, and agree with decision making and plan documented by Dr. Yanes. Subjective 77 yo female PMHx recently diagnosed cirrhosis (workup in progress) with large esophageal varices and gastric AVM, s/p r-transcarotid artery revascularization 11/03 on ASA and plavix, prior EtOH abuse, hypothyroidism, and dysphonia. Admitted 12/23/22 2/2 declining Hgb with melena in the setting of recent GI bleed. Hgb on admission was 8.2 (prior was 9.6 on 12/05) Taking all home meds as prescribed, including ASA and plavix. Has continued to abstain from EtOH This AM: resting comfortably in bed in NAD, having some RUQ pain present for a few days, continues to have melanotic stools (+) fatigue, melanotic stools (-) fever, chills, CP, SOB, abd pain, N/V/D, dysuria, hematuria, LE swelling, recent trauma or falls Hgb decreased slightly to 7.9, alk phos improving to 132 from 154 Review of Systems Review of Systems: reviewed, as above Physical Exam Physical Exam: General: patient resting comfortably, NAD, non-toxic in appearance, AA&O x 4, answers questions appropriately and follows commands. Skin: warm, dry, intact, no rashes or lesions HEENT: NC/AT, PERRL, EOMI, anicteric sclera, conjunctiva without injection, external ear normal to inspection and nontender, nares patent, moist mucus membranes, dentures present, no oropharyngeal lesions, neck supple, trachea midline, no LAD, no thyromegaly, no JVD Heart: +S1/S2, regular, no m/r/g Lungs: equal air entry bilaterally, no rales/rhonchi/wheezes Abd: +BS, soft, NT/ND, no masses/organomegaly/ascites Ext: warm, 2+ pulses in UE/LE bilaterally, no clubbing/cyanosis or edema Neuro: nonfocal, patient AA&O x 4, speech intact, no facial droop, moving all extremities on command with equal strength 5/5 Results & Data Results & Data Vital Signs (Past 12 Hours) Vital Signs Temp Pulse Pulse Resp BP Pulse Ox O2 Del Method 12/26/22 02:47 36.5 C 73 18 133/68 97 Room Air 12/25/22 23:57 73 12/25/22 22:46 36.7 C 67 18 129/75 95 Room Air 12/25/22 19:24 Room Air 12/25/22 19:00 36.6 C 70 18 139/69 95 Room Air Laboratory Results Abnormal lab results 12/25/22 12/25/22 Range/Units 06:43 06:43 RBC 2.79 L (4.20-5.40) M/uL Hgb 7.9 L (12.0-16.0) g/dl Hct 24.9 L (37.0-47.0) % MCHC 31.7 L (32.0-36.0) g/dL RDW Std Deviation 47.6 H (36.4-46.3) fL RDW Coeff of Shira 14.9 H (11.5-14.5) % Lymph # (Auto) 1.13 L (1.2-3.4) K/uL Ponce # (Auto) 0.60 H (0.11-0.59) K/uL Glucose 171 H (70-99(Fasting)) mg/dl Calcium 7.9 L (8.6-10.3) mg/dl AST 49 H (13-39) U/L Alkaline Phosphatase 132 H (34-104) U/L Albumin 3.3 L (3.4-5.0) gm/dl Resident Activity Tracking Resident Involvement: Resident Care Provided Care Provided: Adult Hospital Medicine
[2022-12-26 08:37] LABS: Basophils # (auto) 0.07 K/uL (0-0.2); Basophils % (auto) 1.2 %; Eosinophils # (auto) 0.37 K/uL (0-0.50); Eosinophils % (auto) 6.1 %; Hematocrit (blood only) 27.1 % (37.0-47.0); Hemoglobin 8.5 g/dl (12.0-16.0); Immature Granulocytes # (auto) 0.01 K/uL (0.01-0.20); Immature Granulocytes % (auto) 0.2 %; Lymphocytes # (auto) 1.32 K/uL (1.2-3.4); Lymphocytes % (auto) 21.7 %; Mean Corpuscular Hemoglobin 28.8 pg (25.0-34.0); Mean Corpuscular Hgb Conc 31.4 g/dL (32.0-36.0); Mean Corpuscular Volume 91.9 fL (80.0-100.0); Mean Platelet Volume 10.4 fL (9.4-12.4); Monocytes # (auto) 0.65 K/uL (0.11-0.59); Monocytes % (auto) 10.7 %; Neutrophils # (auto) 3.66 K/uL (1.40-6.50); Neutrophils % (auto) 60.1 %; Platelet Count 164 K/uL (130-400); RDW Coefficient of Variation 14.8 % (11.5-14.5); RDW Standard Deviation 50.1 fL (36.4-46.3); Red Blood Count 2.95 M/uL (4.20-5.40); White Blood Count 6.08 K/ul (4.8-10.8)
[2022-12-26 08:48] LABS: Albumin Globulin Ratio 1.1 (0.9-2); Albumin Level 3.5 gm/dl (3.4-5.0); BUN Creatinine Ratio 13.5 (10-20); Bilirubin,Total 0.5 mg/dl (0.2-1.0); Calcium 8.1 mg/dl (8.6-10.3); Creatinine Clr Calc Pharmacy 58.2 ml/min; Est GFR (African American) 89.9 ml/min; Est GFR (Non-African American) 77.6 ml/min; Globulin 3.3 gm/dl (2.5-4.0); Potassium 3.9 mmol/L (3.5-5.1); Total Protein 6.8 gm/dl (6.0-8.3)
[2022-12-26 09:01] LABS: Prothrombin Time 11.2 Seconds (9.0-12.0)
--- NOTE | 2022-12-26 17:27 | Discharge Summary ---
Date of Service December 26, 2022 Admission HPI Per Admitting Provider Suri is a 77 year old female with a PMH significant for recently diagnosed Cirrhosis (Workup still in process) with large esophageal varices and gastric AVM, S/P right transcarotid artery revascularization with Dr. Khan on 11/03 on aspirin and plavix, previous alcohol abuse, hypothyroidism, and dysphonia who presented to the [facility] ED on 12/23 at the recommendation of her PCP due to continued declining Hgb with melena in the setting of recent upper GI bleed. In the ED, vitals remained stable. Labs were significant for a Hgb of 8.2 (down from 9.6 on 12/05), stable platelets, alk phos of 154 but otherwise stable LFT's. Chest xray was read as "No significant change compared to the prior study. No acute process.". The ED staff spoke with Dr. Khan who recommended admission, they will see the patient tomorrow and will likely perform another EGD. Prior to admission the patient was started on a PPI, octreotide drip, and given a dose of Ceftriaxone. At the time of the admission the patient was lying in bed in no acute distress. She states that over the past few days she has noticed melanotic stool and increased fatigue. She has been taking all medications as prescribed including her aspirin and plavix. She continues to abstain from alcohol. She denies recent fever, chills, SOB, abd pain, nausea, vomiting, diarrhea, dysuria hematuria, LE swelling, and recent falls/trauma. When going over ROS questions she states that she has had intermitted periods of substernal chest pain since her last admission. She states that they are not associated with any specific activity, can happen at rest or with exertion, last for approximately 15-30 min, and has not taken anything for the pain. These symptoms have been occurring since her last discharge. When asked, she states that her last episode of the pain was earlier in the ED but denies current pain. She states her PCP did ECG's outpatient and they were normal. We discussed the need to hold her aspirin/plavix at this time as her risk of life threatening bleed is higher than possible clotting of her recently placed right carotid artery stenting and she is in agreement with holding them for now. We discussed code status, she wishes to be a full code and for her children to make medical decisions for her if she cannot make them herself. Please refer to Dr. Cano's attestation for any changes to the treatment plan Admission Exam (Per Admitting) Constitutional General:In no acute distress, stated age, well-nourished, good hygiene HEENT:Normocephalic, atraumatic, no scleral icterus, pupils around round, symmetrical, and reactive to light, moist mucus membranes, trachea midline, no thyromegaly Chest/Pulm: Patient with reproducible pain on palpation of the substernal region without crepitus,No respiratory distress, symmetrical chest expansion, clear breath sounds throughout Cardiac:RRR, systolic murmur noted Abdomen:Negative for ascites and bruising, normoactive bowel sounds, soft, non-tender to palpation throughout Musculoskeletal:Symmetrical and without signs of acute trauma, upper and lower extremities with full ROM, no atrophy, spasticity, or flaccidity Extremities:Radial, dorsalis pedis, and posterior tibial pulses are intact and symmetrical, no edema noted in the BL LE's Skin:Warm, dry, no rashes , lesions, or scars noted Neuro:Alert and oriented to person, place, month, year, and president, no focal defects, CN II-XII tested and intact, no tremors noted Psych:No acute distress, calm and cooperative during the exam Discharge Data Consultations 12/23/22 18:35 Consult Gastroenterology Routine 12/23/22 19:00 ED Decision to Admit Stat Hospital Course (1) Melena: (2) Cirrhosis: (3) Esophageal varices in cirrhosis: (4) Chest pain: (5) Symptomatic anemia: (6) Dysphonia: (7) Internal carotid artery stent present: (8) RUQ abdominal pain: Yuni Kim was admitted with melena in the setting of cirrhosis and history of esophageal varices. Her admission Hgb was 8.3. At its lowest it reached 7.9 and then stabilized to 8.5 on day of discharge. Melena resolved by day of discharge. GI did not want to scope on this admission due to her ASA plavix medications that she takes for a recent carotid artery stent. She was stopped on these medications during this stay and is to follow up with GI as an outpatient next week. Labs monitored and repleted as necessary. #Melena -in setting of cirrhosis and hx of esophageal varices -Hb slightly decreased, 7.9 today from 8.3 on 12/24/22 -Hold ASA, plavix -Appreciate GI recs, hold ASA, plavix for total of 7 days -EGD as outpatient, unless clinical condition deteriorates #Cirrhosis -workup in progress as outpatient -Continue octreotide, pantoprazole #Esophageal Varices -possible repeat source of GI bleed -s/p EGD variceal banding and gastric AVM treatment #Symptomatic Anemia -Hgb today 7.9 -Monitor CBC q6 hr and for clinical signs of further bleeding -Transfuse below 7 -Continue Iron supplementation #RUQ Pain -Present for the last few day -US demonstrated known cirrhotic liver, bowel gas -No gallbladder or pancreatic abnormalities #Chest Pain -EKG negative for any acute process in ED -Likely MSK vs. hx of GERD/esophageal varices/recent EGD with banding -Continue tele monitoring #ICA Stent Present -plan to hold ASA, plavix as she is greater than 30 days post-op and risk of bleed>risk of clot #Dysphonia -stable -2/2 ICA stent placement DVT PPx b/l SCDs Supervising Physician Co-Signing Physician Notes I personally examined the patient and verified all robert points of history and exam, discussed case, and agree with decision making and plan documented by Dr. Yanes. Patient advised and understanding of continued hold of DAPT until upcoming endoscopy. She is feeling well and denies any dark stools or pain. Hemoglobin improved to 8.5 prior to discharge. Recommend continued monitoring outpatient. Resident Activity Tracking Resident Involvement: Resident Care Provided Care Provided: Adult Hospital Medicine
== END 2022-12-26 17:30 | disposition home or self-care (01) | DRG 432 ==
LOC: ED 16:17 → 2S 16:17 → SUATTDRO 19:51 → 2S 21:01 → SUATTDRO 12-25 09:00

== ENCOUNTER 2023-07-09 17:14 | Observation (INO) ==
--- NOTE | 2023-07-09 17:51 | ED Triage Note ---
Date of Service July 09, 2023 Provider in Triage Author: Jaci Baires History of Present Illness This patient was briefly evaluated while in triage. An abbreviated physical exam was performed. This patient is a 77-year-old Female who presents to the ED for evaluation of vomiting blood. She states that she vomited blood and states that she vomited about a half a grocery bag full of blood. She had two episodes of bloody emesis and states it was blood clots. She states it was bright red blood. She has cirrhosis. She has a history of lower GI bleeding, but not upper. Physical Exam VITALS: Vitals are noted on the nurse's note and reviewed by myself. GENERAL: This is a 77-year-old female, sitting upright in a wheelchair in triage. HEART: Regular rate and rhythm without murmurs gallops or rubs. LUNGS: Clear to auscultation bilaterally without wheezes, rales or rhonchi. ABDOMEN: Positive bowel sounds x 4. Soft, nontender to palpation. NEURO: Patient was alert and oriented to person place and time. Initial orders for labs and / or imaging were placed and patient was placed in the waiting area until a bed is available. Please see further documentation for the full ED course.
[2023-07-09] MEDS ORDERED: SODIUM CHLORIDE 0.9% 1,000 ML IV ONE (17:58)
[2023-07-09] MEDS ORDERED: PANTOPRAZOLE BOLUS/DRIP IV STA (17:58)
[2023-07-09] MEDS ORDERED: STAT IV/IM STA (17:58)
[2023-07-09] MEDS ORDERED: OCTREOTIDE ACETATE 50 MCG in SYRINGE 9.5 ML IV STA (17:58)
[2023-07-09] MEDS ORDERED: PANTOprazole 80 MG in DEXTROSE 5% 100 ML IV ONE (17:58)
[2023-07-09] MEDS ORDERED: ONDANSETRON INJ 2 MG/ML 2 ML VIAL IV STA (18:00)
--- NOTE | 2023-07-09 18:01 | Emergency Department Note ---
Impression & Plan Hematemesis, Esophageal varices in cirrhosis, Anemia ED Provider Note NAME: TRUMAN MCDANIEL AGE: 77 SEX: F ARRIVES VIA: Ambulance INFORMANT: Patient ED PROVIDER(S): Anshul Mora MD CHIEF COMPLAINT: throwing up blood. PLAN: Disposition: Admit MEDICAL DECISION MAKING: The patient is a pleasant 77-year-old woman with a past medical history of cirrhosis, esophageal varices who presents to the emergency department via EMS for evaluation of 2 episodes of hematemesis which she reports consists of large amounts of bright red blood prior to arrival. She denies any prior episodes like this in the past. She does acknowledge she has a history of cirrhosis but when discussing her history of esophageal varices she was not familiar with this term. She otherwise denies any fevers, chills, cough congestion, symptoms. She is not on anticoagulation but does take Plavix. She denies any headache, dizziness, lightheadedness, chest pain or shortness of breath. On my evaluation the patient is in no acute distress, afebrile with stable vital signs. She appears clinically dry. Abdomen is nontender. EKG without overt acute ischemia. Chest are negative for acute cardiopulmonary process per my preliminary interpretation. WBC and platelets within normal limits. H/H 11.3/35.4 slightly decreased from April without more recent for comparison. Chemistry without metabolic acidosis. Total 31.2, AST 45 and alk phos 140 similar to prior in setting of cirrhosis. High-sensitivity troponin 10.3, within normal limits. Lipase is normal. Type and screen was obtained. Treatment was initiated with IV fluid hydration as well as octreotide bolus and drip and Protonix bolus and drip. CT of the chest and abdomen pelvis were performed. Evidence is seen of the patient cirrhosis as well as her esophageal varices without any evidence of active variceal bleeding on CT at this time Note is made of approximate 2 cm wedge-shaped area of decreased enhancement of the spleen suggesting small splenic infarct. Question of possible mild colitis is also noted. Patient please plan for admission for further management. Case was discussed with Dr. Hale, [facility] [place] [place] hospitalist, who will evaluate the patient for admission. Further management per admitting team. Triage Nursing notes reviewed and agree them. Prior/external medical records reviewed Vital Signs: reviewed Differential diagnosis: Diverticulosis, AVM, coagulopathy, colitis, inflammatory bowel disease, malignancy, Denisa-Bradley tear, esophagitis, peptic ulcer disease, variceal bleed, gastritis, epistaxis, fissure, hemorrhoids, as well as other pathologies. ER treatment provided: See below. Diagnostics interpreted by me: ECG: Normal sinus rhythm, 77 bpm, no ectopy, no overt ST elevation or depression, QTc 479, QRS 92 Cardiac Monitoring: An order for continuous cardiac monitoring was placed and demonstrated Normal sinus rhythm, 77 bpm, no ectopy Laboratory studies: See below Imaging studies: See below Consultation(s): Case was discussed with Dr. Hale, [facility] [place] [place] hospitalist, who will evaluate the patient for admission. HPI: The patient is a pleasant 77-year-old woman with a past medical history of cirrhosis, esophageal varices who presents to the emergency department via EMS for evaluation of 2 episodes of hematemesis which she reports consists of large amounts of bright red blood prior to arrival. She denies any prior episodes like this in the past. She does acknowledge she has a history of cirrhosis but when discussing her history of esophageal varices she was not familiar with this term. She otherwise denies any fevers, chills, cough congestion, symptoms. She is not on anticoagulation but does take Plavix. She denies any headache, dizziness, lightheadedness, chest pain or shortness of breath. ROS: See above HPI for pertinent positives & negatives. A total of 10 systems reviewed and were otherwise negative. VITALS:See Below PHYSICAL EXAMINATION: GENERAL: Awake, alert, in no distress HENT: Normocephalic, atraumatic. Oropharynx with dry mucous membranes and otherwise unremarkable. EYES: Normal conjunctiva. Sclera non-icteric. NECK: Supple. No nuchal rigidity. FROM. No JVD. RESPIRATORY: Clear to auscultation. CARDIAC: Regular rate, normal rhythm. Extremities warm and well perfused. Pulses equal. ABDOMEN: Soft, non-distended. No tenderness to palpation. No rebound or guarding. No masses. RECTAL: Deferred. MUSCULOSKELETAL: Chest examination reveals no tenderness. The back is symmetrical on inspection without obvious abnormality. There is no CVA tenderness to palpation. No joint edema. LOWER EXTREMITIES: Calves are equal size bilaterally and non-tender. No edema. No discoloration. NEURO: Normal sensorium. No sensory or motor deficits noted. SKIN: No rash or jaundice noted. ED COURSE: Critical Care: I have personally spent greater than 45 minutes of critical care time in the direct management of this patient. This includes bedside care, interpretation of diagnostic studies, and testing, discussion with consultants, patient, and family members, and other required patient management activities. This 45 minutes is in excess of all separately billable procedures. Anshul Mora MD Past Med/Surg History Medical History Allergies Hyperlipidemia Melena "not anymore that she knows of" Symptomatic anemia Acute GI bleeding Internal carotid artery stent present History of COVID-spring, sore throat and stomach cramps, cough-denies hospitalization- symptoms resolved History of anesthesia reaction hypotension Stroke history, found on the brain MRI. no current deficits. Transient ischemic attack (TIA) ~6 months ago, does not follow with neurology. Carotid artery stenosis 80-90% stenosis R ICA Gastric reflux Hypothyroidism Anxiety Hypertension Surgical History History of colonoscopy S/P partial hysterectomy S/P wisdom tooth extraction Family History Mother Diabetes Aneurysm Sister Ovarian cancer Other No family history of adverse response to anesthesia Denies family history of Prostate cancer Myocardial infarction Breast cancer Colorectal cancer Hypertension Social History Smoking Status: Former smoker Tobacco Type: Cigarettes Age Started Using Tobacco: 11; Age Quit Using Tobacco: 69; packs per day: 0.5; Second Hand Exposure: No; Do You Dip or Chew Tobacco: No; Hx Alcohol Use: Yes (Has quit drinking this past year) Alcohol type: wine and hard liquor Alcohol Intake Frequency: Monthly or Less Hx Substance Use: No Preferred Language: [place]al[place] Communication Ability: Effective Visual Impairment: No Limitations Hearing Ability: Normal Case Mgr Required: No Beliefs That Will Affect Care: None marital status: / Current Living Situation: Family Current Living Situation Comment: Split level, sister lives upstairs, patient lives downstairs current occupational status: retired 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 Other Information That Helps Us Care for You: No Feels Safe at Home: Yes Safety Concerns: Feels Safe At This Time Childhood Exposure to Second-Hand Smoke: Yes Diet: regular Diet Comment: regular Dental Care, Regularly: No Physical Activity Frequency: 3-4 Times per Week Seatbelt Use: always Sunscreen Use: No Assistive Devices: Denture - Upper, Denture - Lower and Glasses Allergies Allergies Allergy/AdvReac Type Severity Reaction Status Date / Time codeine AdvReac Severe Headache Verified 07/09/23 21:01 Home Meds Home Medications Medication Instructions Recorded Confirmed cetirizine 10 mg tablet (Zyrtec) 10 mg PO DAILY PRN seasonal 09/05/22 07/09/23 allergies atorvastatin 20 mg tablet (Lipitor) 20 mg PO QAM 10/28/22 07/09/23 Previous Rx's Medication Instructions Recorded ferrous sulfate 325 mg (65 mg 325 mg PO DAILY #90 tabs 12/31/22 iron) tablet clopidogrel 75 mg tablet (Plavix) 75 mg PO QAM #90 tabs 01/13/23 levothyroxine 50 mcg tablet 50 mcg PO QAM #90 tabs 04/20/23 omeprazole 40 mg capsule,delayed 40 mg PO QAM #90 caps 04/20/23 release fluoxetine 40 mg capsule (Prozac) 40 mg PO QAM #90 caps 06/09/23 triamterene 37.5 1 cap PO QAM #90 caps 06/09/23 mg-hydrochlorothiazide 25 mg capsule Results & Data (ED) Vital Signs Vital Signs - 24 hr 07/09/23 17:48 07/09/23 18:53 07/09/23 19:04 Temperature 37.0 C Temperature Source Temporal Artery Scan Pulse Rate 79 79 Pulse Rate [Apical] Pulse Rhythm [Apical] Pulse Strength [Apical] Respiratory Rate 20 Respiratory Effort / Characteristics Respiratory Depth Respiratory Pattern Blood Pressure 127/56 L Blood Pressure [Right Arm] Blood Pressure Mean 79 Blood Pressure Mean [Right Arm] Pulse Oximetry 97 95 Oxygen Delivery Method Room Air Room Air Sepsis Recent Fever Within 48 Hours No Sepsis New/Unexplained Change in Mental Status N/A Sepsis Action Taken by Nursing No Action Required 07/09/23 19:38 Temperature Temperature Source Pulse Rate Pulse Rate [Apical] 81 Pulse Rhythm [Apical] Regular Pulse Strength [Apical] Normal Respiratory Rate 19 Respiratory Effort / Characteristics Non-Labored Spontaneous Respiratory Depth Normal Respiratory Pattern Regular Blood Pressure Blood Pressure [Right Arm] 137/69 Blood Pressure Mean Blood Pressure Mean [Right Arm] 91 Pulse Oximetry 98 Oxygen Delivery Method Room Air Sepsis Recent Fever Within 48 Hours Sepsis New/Unexplained Change in Mental Status Sepsis Action Taken by Nursing Laboratory Data Attestation: I reviewed the patient's lab results. 07/10/23 00:37 07/09/23 18:07 Lab Results 07/09/23 07/09/23 Range/Units 18:07 19:45 WBC 8.95 (4.8-10.8) K/ul RBC 3.85 L (4.20-5.40) M/uL Hgb 11.3 L (12.0-16.0) g/dl Hct 35.4 L (37.0-47.0) % MCV 91.9 (80.0-100.0) fL MCH 29.4 (25.0-34.0) pg MCHC 31.9 L (32.0-36.0) g/dL RDW Std Deviation 50.3 H (36.4-46.3) fL RDW Coeff of Shira 15.1 H (11.5-14.5) % Plt Count 179 (130-400) K/uL MPV 11.2 (9.4-12.4) fL Immature Gran % (Auto) 0.9 % Neut % (Auto) 72.3 % Lymph % (Auto) 13.9 % [place] % (Auto) 8.5 % Eos % (Auto) 3.2 % Baso % (Auto) 1.2 % Neut # (Auto) 6.47 (1.40-6.50) K/uL Lymph # (Auto) 1.24 (1.20-3.40) K/uL [place] # (Auto) 0.76 H (0.11-0.59) K/uL Eos # (Auto) 0.29 (0.00-0.50) K/uL Baso # (Auto) 0.11 (0.00-0.20) K/uL Immature Gran # (Auto) 0.08 (0.01-0.20) K/uL PT Cancelled 11.9 INR Cancelled 1.1 APTT Cancelled 28 PTT Ratio Cancelled 1.0 Sodium 140 (136-145) mmol/L Potassium 4.5 (3.5-5.1) mmol/L Chloride 110 H (98-107) mmol/L Carbon Dioxide 23 (21-32) mmol/L Anion Gap 7 (3-11) BUN 29 H (6-23) mg/dl Creatinine 0.94 (0.6-1.2) mg/dl Est Cr Clr Drug Dosing Not Reportable Est GFR ( Amer) 67.3 ml/min Est GFR (Non-Af Amer) 58.1 ml/min BUN/Creatinine Ratio 30.9 H (10-20) Glucose 135 H (70-99(Fasting)) mg/dl Calcium 9.1 (8.6-10.3) mg/dl Total Bilirubin 1.2 H (0.2-1.0) mg/dl AST 45 H (13-39) U/L ALT 23 (7-52) U/L Alkaline Phosphatase 140 H (34-104) U/L Troponin I High Sens 10.3 (0-14) pg/ml Total Protein 6.9 (6.0-8.3) gm/dl Albumin 3.8 (3.4-5.0) gm/dl Globulin 3.1 (2.5-4.0) gm/dl Albumin/Globulin Ratio 1.2 (0.9-2) Lipase 16 (11-82) U/L Blood Type A Positive Antibody Screen NEGATIVE Administered Medications Octreotide Acetate 500 mcg/ (Sodium Chloride) 100.5 mls @ 10.05 mls/hr IV .Q10H BROOKE Stop: 08/08/23 17:59 Last Admin: 07/09/23 18:48 Dose: 50 mcg/hr, 10.1 mls/hr Documented By: AURELIANO Pantoprazole Sodium 40 mg/ (Dextrose) 100 mls @ 20 mls/hr IV Q5H BROOKE Stop: 08/08/23 18:14 Last Admin: 07/10/23 00:03 Dose: 8 mg/hr, 20 mls/hr Documented By: Infusion: 07/09/23 23:41 Dose: Infused Documented By: Admin: 07/09/23 18:41 Dose: 8 mg/hr, 20 mls/hr Documented By: AURELIANO Parenteral Electrolytes (Plasma-Lyte A Ph 7.4) 1,000 mls @ 100 mls/hr IV .Q10H BROOKE Stop: 07/10/23 17:44 Last Admin: 07/09/23 21:53 Dose: 100 mls/hr Documented By: AURELIANO Discontinued Medications Sodium Chloride (Nss) 1,000 mls @ 999 mls/hr IV .Q1H1M ONE Stop: 07/09/23 18:58 Last Infusion: 07/09/23 19:29 Dose: Infused Documented By: Admin: 07/09/23 18:29 Dose: 999 mls/hr Documented By: AURELIANO Octreotide Acetate 50 mcg/ (Syringe) 10 mls @ 3 mls/min IV ONE STA Stop: 07/09/23 18:01 Last Admin: 07/09/23 18:39 Dose: 3 mls/min Documented By: AURELIANO Pantoprazole Sodium 80 mg/ (Dextrose) 120 mls @ 480 mls/hr IV NOW ONE Stop: 07/09/23 18:12 Last Infusion: 07/09/23 18:52 Dose: Infused Documented By: Admin: 07/09/23 18:27 Dose: 480 mls/hr Documented By: AURELIANO Ioversol (Optiray 320 500ml) 87 ml IV ONCE ONE Stop: 07/09/23 20:11 Last Admin: 07/09/23 20:11 Dose: 87 ml Documented By: DEREK Miscellaneous (Stat Iv/Im) 1 each N/A NOW STA Stop: 07/09/23 17:59 Last Admin: 07/10/23 00:08 Dose: 1 each Documented By: FAUSTO Ondansetron HCl (Ondansetron Inj 2 Mg/Ml 2 Ml Vial) 4 mg IV NOW STA Stop: 07/09/23 18:01 Last Admin: 07/09/23 18:47 Dose: 4 mg Documented By: AURELIANO Pantoprazole Sodium (Pantoprazole Bolus/Drip) 1 each IV NOW STA Stop: 07/09/23 17:59 Last Admin: 07/09/23 18:44 Dose: Not Given Documented By: AURELIANO Imaging Data Radiologist's Impression: Chest X-Ray 07/09/23 17:53 XR chest 1V portable CLINICAL HISTORY: gi bleed TECHNIQUE: Single frontal radiograph of the chest was obtained. Comparison: Comparison is made to chest radiograph 12/23/2022 FINDINGS: Exam is limited by underpenetration. Cardiomegaly is noted. The lungs are clear. No evidence of pleural effusion or pneumothorax. IMPRESSION: No acute chest disease. ACT 112: Negative or not required by law. Electronically signed by: Dequan Hennessy M.D. 07/09/2023 6:28 PM Abdomen/Pelvis CT 07/09/23 19:01 Exam(s): CT ABDOMEN + PELVIS With Contrast IV Amt: 87 cc opti 320 EXAM: CT Abdomen and Pelvis With Intravenous Contrast CLINICAL HISTORY: Reason for exam: cirrhosis, hematemesis. TECHNIQUE: Axial computed tomography images of the abdomen and pelvis with intravenous contrast. CTDI is 27.46 mGy and DLP is 804.48 mGy-cm. Automated exposure control was utilized for the study. A dose lowering technique was utilized adhering to the principles of ALARA. CONTRAST: Patient received 87 cc opti 320 of IV contrast COMPARISON: No relevant prior studies available. FINDINGS: Lung bases: Unremarkable. No mass. No consolidation. ABDOMEN: Liver: Unremarkable. No mass. Gallbladder and bile ducts: Unremarkable. No calcified stones. No ductal dilation. Pancreas: Unremarkable. No mass. No ductal dilation. Spleen: The spleen is upper normal in size measuring 14 cm. There is an approximate two-point centimeter wedge-shaped area of decreased enhancement peripherally suggesting a small splenic infarct. Adrenals: Unremarkable. No mass. Kidneys and ureters: Unremarkable. No solid mass. No hydronephrosis. Stomach and bowel: See below. PELVIS: Appendix: Bowel loops are nondilated. The appendix is normal. The transverse colon, left colon, and sigmoid colon are contracted which gives appearance of mild wall thickening. Possible mild colitis. There is diverticulosis of the sigmoid colon without acute diverticulitis. Bladder: Unremarkable. No mass. Reproductive: Unremarkable as visualized. ABDOMEN and PELVIS: Intraperitoneal space: See below. Bones/joints: Mild to moderate degenerative changes throughout the spine. No acute fracture or subluxation is seen. Soft tissues: Unremarkable. Vasculature: Slightly nodular liver surface. The portal vein is patent and mildly dilated measuring 17 mm consistent with history of portal venous hypertension. Small esophageal varices are present. No ascites. The abdominal aorta is heavily calcified but nondilated. Lymph nodes: Unremarkable. No enlarged lymph nodes. IMPRESSION: 1. Slightly nodular liver surface. The portal vein is patent and mildly dilated measuring 17 mm consistent with history of portal venous hypertension. Small esophageal varices are present. No ascites. 2. The spleen is upper normal in size measuring 14 cm. There is an approximate two-point centimeter wedge-shaped area of decreased enhancement peripherally suggesting a small splenic infarct. 3. Bowel loops are nondilated. The appendix is normal. The transverse colon, left colon, and sigmoid colon are contracted which gives the appearance of mild wall thickening. Possible mild colitis. There is diverticulosis of the sigmoid colon without acute diverticulitis. Electronically signed by: Ezio Boogie MD 07/09/23 20:[address] 07/09/23 19:01 Exam(s): CT CHEST With Contrast IV Amt: 87 cc opti 320 EXAM: CT Chest With Intravenous Contrast CLINICAL HISTORY: Reason for exam: cirrhosis, hematemesis. TECHNIQUE: Axial computed tomography images of the chest with intravenous contrast. CTDI is 26.5 mGy and DLP is 1279.7 mGy-cm. Automated exposure control was utilized for the study. A dose lowering technique was utilized adhering to the principles of ALARA. CONTRAST: Patient received 87 cc opti 320 of IV contrast COMPARISON: No relevant prior studies available. FINDINGS: Lungs: Mild emphysematous changes in the lungs. No acute infiltrate is identified. No mass. Pleural space: Unremarkable. No pneumothorax. No significant effusion. Heart: The heart is borderline enlarged. Moderate to severe coronary calcification is present. No pericardial effusion. Bones/joints: Mild degenerative changes throughout the spine. No acute fracture or bone lesion is identified. No dislocation. Soft tissues: Unremarkable. Vasculature: The thoracic aorta is mildly calcified but nondilated. There is no aneurysm or dissection. Several small esophageal varices measuring 5 mm are seen inferiorly near the gastroesophageal junction. No hemorrhage is identified. Lymph nodes: Unremarkable. No enlarged lymph nodes. IMPRESSION: 1. The thoracic aorta is mildly calcified but nondilated. There is no aneurysm or dissection. 2. The heart is borderline enlarged. Moderate to severe coronary calcification is present. No pericardial effusion. 3. Several small esophageal varices measuring 5 mm are seen inferiorly near the gastroesophageal junction. No hemorrhage is identified. 4. Mild emphysematous changes in the lungs. No acute infiltrate is identified. 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
--- NOTE | 2023-07-09 18:29 | XRay Report ---
XR chest 1V portable CLINICAL HISTORY: gi bleed TECHNIQUE: Single frontal radiograph of the chest was obtained. Comparison: Comparison is made to chest radiograph 12/23/2022 FINDINGS: Exam is limited by underpenetration. Cardiomegaly is noted. The lungs are clear. No evidence of pleur al effusion or pneumothorax. IMPRESSION: No acute chest disease. ACT 112: Negative or not required by law. Electronically signed by: Dequan Hennessy M.D. 07/09/2023 6:28 PM
[2023-07-09 18:36] LABS: Basophils # (auto) 0.11 K/uL (0.00-0.20); Basophils % (auto) 1.2 %; Eosinophils # (auto) 0.29 K/uL (0.00-0.50); Eosinophils % (auto) 3.2 %; Hematocrit (blood only) 35.4 % (37.0-47.0); Hemoglobin 11.3 g/dl (12.0-16.0); Immature Granulocytes # (auto) 0.08 K/uL (0.01-0.20); Immature Granulocytes % (auto) 0.9 %; Lymphocytes # (auto) 1.24 K/uL (1.20-3.40); Lymphocytes % (auto) 13.9 %; Mean Corpuscular Hemoglobin 29.4 pg (25.0-34.0); Mean Corpuscular Hgb Conc 31.9 g/dL (32.0-36.0); Mean Corpuscular Volume 91.9 fL (80.0-100.0); Mean Platelet Volume 11.2 fL (9.4-12.4); Monocytes # (auto) 0.76 K/uL (0.11-0.59); Monocytes % (auto) 8.5 %; Neutrophils # (auto) 6.47 K/uL (1.40-6.50); Neutrophils % (auto) 72.3 %; Platelet Count 179 K/uL (130-400); RDW Coefficient of Variation 15.1 % (11.5-14.5); RDW Standard Deviation 50.3 fL (36.4-46.3); Red Blood Count 3.85 M/uL (4.20-5.40); White Blood Count 8.95 K/ul (4.8-10.8)
[2023-07-09] MEDS: PANTOprazole 40 MG in DEXTROSE 5% MINI-B 100 ML IV SCH (18:41)
[2023-07-09] MEDS: OCTREOTIDE ACETATE 500 MCG in 0.9 % SODIUM CHLORIDE 100 ML IV SCH (18:48)
[2023-07-09 18:50] LABS: Alanine Aminotransferase 23 U/L (7-52); Albumin Globulin Ratio 1.2 (0.9-2); Albumin Level 3.8 gm/dl (3.4-5.0); Alkaline Phosphatase 140 U/L (34-104); Anion Gap 7 (3-11); Aspartate Aminotransferase 45 U/L (13-39); BUN Creatinine Ratio 30.9 (10-20); Bilirubin,Total 1.2 mg/dl (0.2-1.0); Blood Urea Nitrogen 29 mg/dl (6-23); Calcium 9.1 mg/dl (8.6-10.3); Carbon Dioxide 23 mmol/L (21-32); Chloride 110 mmol/L (98-107); Est GFR (African American) 67.3 ml/min; Est GFR (Non-African American) 58.1 ml/min; Globulin 3.1 gm/dl (2.5-4.0); Glucose 135 mg/dl (70-99(Fasting)); Lipase 16 U/L (11-82); Potassium 4.5 mmol/L (3.5-5.1); Sodium 140 mmol/L (136-145); Total Protein 6.9 gm/dl (6.0-8.3)
[2023-07-09 18:53] LABS: Troponin I High Sensitivity 10.3 pg/ml (0-14)
[2023-07-09] MEDS ORDERED: OPTIRAY 320 500ml IV ONE (20:10)
[2023-07-09 20:34] LABS: INR 1.1 (0.9-1.1); Partial Thromboplastin Time 28 Seconds (21-31); Prothrombin Time 11.9 Seconds (9.0-12.0)
--- NOTE | 2023-07-09 20:48 | CT Scan Report ---
Exam(s): CT ABDOMEN + PELVIS With Contrast IV Amt: 87 cc opti 320 EXAM: CT Abdomen and Pelvis With Intravenous Contrast CLINICAL HISTORY: Reason for exam: cirrhosis, hematemesis. TECHNIQUE: Axial computed tomography images of the abdomen and pelvis with intravenous contrast. CTDI is 27.46 mGy and DLP is 804.48 mGy-cm. Automated exposure control was utilized for the study. A dose lowering technique was utilized adhering to the principles of ALARA. CONTRAST: Patient received 87 cc opti 320 of IV contrast COMPARISON: No relevant prior studies available. FINDINGS: Lung bases: Unremarkable. No mass. No consolidation. ABDOMEN: Liver: Unremarkable. No mass. Gallbladder and bile ducts: Unremarkable. No calcified stones. No ductal dilation. Pancreas: Unremarkable. No mass. No ductal dilation. Spleen: The spleen is upper normal in size measuring 14 cm. There is an approximate two-point centimeter wedge-shaped area of decreased enhancement peripherally suggesting a small splenic infarct. Adrenals: Unremarkable. No mass. Kidneys and ureters: Unremarkable. No solid mass. No hydronephrosis. Stomach and bowel: See below. PELVIS: Appendix: Bowel loops are nondilated. The appendix is normal. The transverse colon, left colon, and sigmoid colon are contracted which gives appearance of mild wall thickening. Possible mild colitis. There is diverticulosis of the sigmoid colon without acute diverticulitis. Bladder: Unremarkable. No mass. Reproductive: Unremarkable as visualized. ABDOMEN and PELVIS: Intraperitoneal space: See below. Bones/joints: Mild to moderate degenerative changes throughout the spine. No acute fracture or subluxation is seen. Soft tissues: Unremarkable. Vasculature: Slightly nodular liver surface. The portal vein is patent and mildly dilated measuring 17 mm consistent with history of portal venous hypertension. Small esophageal varices are present. No ascites. The abdominal aorta is heavily calcified but nondilated. Lymph nodes: Unremarkable. No enlarged lymph nodes. IMPRESSION: 1. Slightly nodular liver surface. The portal vein is patent and mildly dilated measuring 17 mm consistent with history of portal venous hypertension. Small esophageal varices are present. No ascites. 2. The spleen is upper normal in size measuring 14 cm. There is an approximate two-point centimeter wedge-shaped area of decreased enhancement peripherally suggesting a small splenic infarct. 3. Bowel loops are nondilated. The appendix is normal. The transverse colon, left colon, and sigmoid colon are contracted which gives the appearance of mild wall thickening. Possible mild colitis. There is diverticulosis of the sigmoid colon without acute diverticulitis. Electronically signed by: Ezio Boogie MD 07/09/23 20:47 PM
--- NOTE | 2023-07-09 20:59 | CT Scan Report ---
Exam(s): CT CHEST With Contrast IV Amt: 87 cc opti 320 EXAM: CT Chest With Intravenous Contrast CLINICAL HISTORY: Reason for exam: cirrhosis, hematemesis. TECHNIQUE: Axial computed tomography images of the chest with intravenous contrast. CTDI is 26.5 mGy and DLP is 1279.7 mGy-cm. Automated exposure control was utilized for the study. A dose lowering technique was utilized adhering to the principles of ALARA. CONTRAST: Patient received 87 cc opti 320 of IV contrast COMPARISON: No relevant prior studies available. FINDINGS: Lungs: Mild emphysematous changes in the lungs. No acute infiltrate is identified. No mass. Pleural space: Unremarkable. No pneumothorax. No significant effusion. Heart: The heart is borderline enlarged. Moderate to severe coronary calcification is present. No pericardial effusion. Bones/joints: Mild degenerative changes throughout the spine. No acute fracture or bone lesion is identified. No dislocation. Soft tissues: Unremarkable. Vasculature: The thoracic aorta is mildly calcified but nondilated. There is no aneurysm or dissection. Several small esophageal varices measuring 5 mm are seen inferiorly near the gastroesophageal junction. No hemorrhage is identified. Lymph nodes: Unremarkable. No enlarged lymph nodes. IMPRESSION: 1. The thoracic aorta is mildly calcified but nondilated. There is no aneurysm or dissection. 2. The heart is borderline enlarged. Moderate to severe coronary calcification is present. No pericardial effusion. 3. Several small esophageal varices measuring 5 mm are seen inferiorly near the gastroesophageal junction. No hemorrhage is identified. 4. Mild emphysematous changes in the lungs. No acute infiltrate is identified. Electronically signed by: Ezio Boogie MD 07/09/23 20:57 PM
--- NOTE | 2023-07-09 21:31 | History & Physical Report ---
Date of Service July 09, 2023 Assessment & Plan (1) Hematemesis: Plan: -Admit to the PCU on tele and pulse oximetry -Currently hemodynamically stable, stable on RA, and currently without nausea and vomiting -Had two episodes of hematemesis with blood clots this afternoon -No other symptoms to suggest acute infection -Likely has an ulcer from using Aleve PM while also on aspirin and plavix for previous carotid endarterectomy -Hgb is currently stable -Started on pantoprazole and octreotide drips in the ED, continue both -Strict NPO -GI consult placed -Hold all anticoagulants/antiplatelets for now -Type and screen obtained -Will obtain blood consent on admission -Monitor CBC q6h moving forward -AM CMP, mag, PT/INR (2) Esophageal varices in cirrhosis: Plan: -See hematemesis -GI consulted (3) Carotid artery stenosis: Plan: -Hold aspirin and plavix for now with recent hematemesis with varices (4) Hypertension: Plan: -Stable -Can use prn IV antihypertensives if needed while on PCU (5) Hypothyroidism: Plan: -Resume levothyroxine when able Plan The patient was discussed with Dr. Hale at the time of the admission History of Present Illness Chief Complaint: Hematemesis Primary Care Provider: Clara Weathers MD Suri is a 77 year old female with a PMH significant for recently diagnosed Cirrhosis (Workup still in process) with large esophageal varices and gastric AVM, S/P right transcarotid artery revascularization with Dr. Khan on 11/03 on aspirin and plavix, previous alcohol abuse, hypothyroidism, and dysphonia who presented to the [facility] ED on 07/09/23 via EMS with a complaint of hematemesis. She remained stable in the ED. Labs were significant for a hgb of 11.3 (down from 12.2 as of 05/11), BUN of 29, chloride of 110, total bili of 1.2, AST of 45, alk phos of 140. Chest xray was negative for acute findings. CT of the chest with IV con was read as "1. The thoracic aorta is mildly calcified but nondilated. There is no aneurysm or dissection 2. The heart is borderline enlarged. Moderate to severe coronary calcification is present. No pericardial effusion. 3. Several small esophageal varices measuring 5 mm are seen inferiorly near the gastroesophageal junction. No hemorrhage is identified. 4. Mild emphysematous changes in the lungs. No acute infiltrate is identified.". CT of the abd/pelvis w/IV was read as "1. Slightly nodular liver surface. The portal vein is patent and mildly dilated measuring 17 mm consistent with history of portal venous hypertension. Small esophageal varices are present. No ascites. 2. The spleen is upper normal in size measuring 14 cm. There is an approximate two-point centimeter wedge-shaped area of decreased enhancement peripherally suggesting a small splenic infarct. 3. Bowel loops are nondilated. The appendix is normal. The transverse colon, left colon, and sigmoid colon are contracted which gives the appearance of mild wall thickening. Possible mild colitis. There is diverticulosis of the sigmoid colon without acute diverticulitis.".". Prior to admission the patient was started on a protonix drip, octreotide drip, given 4 mg IV zofran, and 1L NSS. At the time of the exam the patient was lying in bed in no acute distress. She had been in her normal state of health until this afternoon when she started to feel nauseous. She took a nap but when she woke she vomited blood into a plastic grocery bag. She then vomited one more time into her toilet which consisted of bright red blood and clots. She states that she has not vomited since arrival to the ED. When asked about NSAID use she states that she has been taking Aleve PM most nights for sleep. I confirmed that she was only using it for sleep and not pain. I explained to her how dangerous NSAIDs can be with her hx of cirrhosis and varices and instructed her to discontinue the medication. I also stressed the importance of speaking with her PCP prior to starting a new medications. She denies recent alcohol use, fever, chills, ,chest pain, SOB, dysuria, hematuria, melena, and recent trauma. She is a full code and would want her daughter to make medical decisions for her if she cannot make them herself. Please refer to Dr. Hale's attestation for any changes to the treatment plan Allergies Allergy/AdvReac Type Severity Reaction Status Date / Time codeine AdvReac Severe Headache Verified 07/10/23 13:41 Home Medications Medication Instructions Recorded Confirmed Type cetirizine 10 mg tablet (Zyrtec) 10 mg PO DAILY PRN seasonal 09/05/22 07/10/23 History allergies atorvastatin 20 mg tablet (Lipitor) 20 mg PO QAM 10/28/22 07/10/23 History ferrous sulfate 325 mg (65 mg 325 mg PO DAILY #90 tabs 12/31/22 07/10/23 Rx iron) tablet clopidogrel 75 mg tablet (Plavix) 75 mg PO QAM #90 tabs 01/13/23 07/10/23 Rx levothyroxine 50 mcg tablet 50 mcg PO QAM #90 tabs 04/20/23 07/10/23 Rx omeprazole 40 mg capsule,delayed 40 mg PO QAM #90 caps 04/20/23 07/10/23 Rx release fluoxetine 40 mg capsule (Prozac) 40 mg PO QAM #90 caps 06/09/23 07/10/23 Rx triamterene 37.5 1 cap PO QAM #90 caps 06/09/23 07/10/23 Rx mg-hydrochlorothiazide 25 mg capsule Past Med/Surg History Medical History Allergies Hyperlipidemia Melena "not anymore that she knows of" Symptomatic anemia Acute GI bleeding Internal carotid artery stent present History of COVID-spring, sore throat and stomach cramps, cough-denies hospitalization- symptoms resolved History of anesthesia reaction hypotension Stroke history, found on the brain MRI. no current deficits. Transient ischemic attack (TIA) ~6 months ago, does not follow with neurology. Carotid artery stenosis 80-90% stenosis R ICA Gastric reflux Hypothyroidism Anxiety Hypertension Surgical History History of colonoscopy S/P partial hysterectomy S/P wisdom tooth extraction Family History Mother Diabetes Aneurysm Sister Ovarian cancer Other No family history of adverse response to anesthesia Denies family history of Prostate cancer Myocardial infarction Breast cancer Colorectal cancer Hypertension Social History Smoking Status: Former smoker Tobacco Type: Cigarettes Age Started Using Tobacco: 11; Age Quit Using Tobacco: 69; packs per day: 0.5; Second Hand Exposure: No; Do You Dip or Chew Tobacco: No; Hx Alcohol Use: Yes (Has quit drinking this past year) Alcohol type: wine and hard liquor Alcohol Intake Frequency: Monthly or Less Hx Substance Use: No Preferred Language: Kosovan Communication Ability: Effective Visual Impairment: No Limitations Hearing Ability: Normal Poultry Husbandman Required: No Beliefs That Will Affect Care: None marital status: / Current Living Situation: Family Current Living Situation Comment: Split level, sister lives upstairs, patient lives downstairs current occupational status: retired 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 Other Information That Helps Us Care for You: No Feels Safe at Home: Yes Safety Concerns: Feels Safe At This Time Childhood Exposure to Second-Hand Smoke: Yes Diet: regular Diet Comment: regular Dental Care, Regularly: No Physical Activity Frequency: 3-4 Times per Week Seatbelt Use: always Sunscreen Use: No Assistive Devices: None Physical Exam Physical Exam: Physical Exam: General: In no acute distress, stated age, well-nourished, good hygiene HEENT: Normocephalic, atraumatic, no scleral icterus, pupils around round, symmetrical, and reactive to light, moist mucus membranes, trachea midline, no thyromegaly Chest/Pulm: No respiratory distress, symmetrical chest expansion, clear breath sounds throughout Cardiac: RRR, no murmurs noted Abdomen: Negative for ascites and bruising, normoactive bowel sounds, soft, non-tender to palpation throughout Musculoskeletal: Symmetrical and without signs of acute trauma, upper and lower extremities with full ROM, no atrophy, spasticity, or flaccidity Extremities: Radial, dorsalis pedis, and posterior tibial pulses are intact and symmetrical, no edema noted in the BL LE's Skin: Warm, dry, no rashes , lesions, or scars noted Neuro: Alert and oriented to person, place, month, year, and president, no focal defects, no tremors noted Psych: No acute distress, calm and cooperative during the exam Results & Data Results & Data Vital Signs (Past 12 Hours) Vital Signs Temp Pulse Pulse Resp BP BP Pulse Ox 07/09/23 19:38 81 19 137/69 98 07/09/23 19:04 79 07/09/23 18:53 95 07/09/23 17:48 37.0 C 79 20 127/56 L 97 O2 Del Method 07/09/23 19:38 Room Air 07/09/23 19:04 07/09/23 18:53 Room Air 07/09/23 17:48 Room Air Laboratory Results Abnormal lab results 07/09/23 Range/Units 18:07 RBC 3.85 L (4.20-5.40) M/uL Hgb 11.3 L (12.0-16.0) g/dl Hct 35.4 L (37.0-47.0) % MCHC 31.9 L (32.0-36.0) g/dL RDW Std Deviation 50.3 H (36.4-46.3) fL RDW Coeff of Shira 15.1 H (11.5-14.5) % Carter # (Auto) 0.76 H (0.11-0.59) K/uL Chloride 110 H (98-107) mmol/L BUN 29 H (6-23) mg/dl BUN/Creatinine Ratio 30.9 H (10-20) Glucose 135 H (70-99(Fasting)) mg/dl Total Bilirubin 1.2 H (0.2-1.0) mg/dl AST 45 H (13-39) U/L Alkaline Phosphatase 140 H (34-104) U/L Diagnostic Findings Chest X-Ray 07/09/23 17:53 XR chest 1V portable CLINICAL HISTORY: gi bleed TECHNIQUE: Single frontal radiograph of the chest was obtained. Comparison: Comparison is made to chest radiograph 12/23/2022 FINDINGS: Exam is limited by underpenetration. Cardiomegaly is noted. The lungs are clear. No evidence of pleural effusion or pneumothorax. IMPRESSION: No acute chest disease. ACT 112: Negative or not required by law. Electronically signed by: Dequan Hennessy M.D. 07/09/2023 6:28 PM Abdomen/Pelvis CT 07/09/23 19:01 Exam(s): CT ABDOMEN + PELVIS With Contrast IV Amt: 87 cc opti 320 EXAM: CT Abdomen and Pelvis With Intravenous Contrast CLINICAL HISTORY: Reason for exam: cirrhosis, hematemesis. TECHNIQUE: Axial computed tomography images of the abdomen and pelvis with intravenous contrast. CTDI is 27.46 mGy and DLP is 804.48 mGy-cm. Automated exposure control was utilized for the study. A dose lowering technique was utilized adhering to the principles of ALARA. CONTRAST: Patient received 87 cc opti 320 of IV contrast COMPARISON: No relevant prior studies available. FINDINGS: Lung bases: Unremarkable. No mass. No consolidation. ABDOMEN: Liver: Unremarkable. No mass. Gallbladder and bile ducts: Unremarkable. No calcified stones. No ductal dilation. Pancreas: Unremarkable. No mass. No ductal dilation. Spleen: The spleen is upper normal in size measuring 14 cm. There is an approximate two-point centimeter wedge-shaped area of decreased enhancement peripherally suggesting a small splenic infarct. Adrenals: Unremarkable. No mass. Kidneys and ureters: Unremarkable. No solid mass. No hydronephrosis. Stomach and bowel: See below. PELVIS: Appendix: Bowel loops are nondilated. The appendix is normal. The transverse colon, left colon, and sigmoid colon are contracted which gives appearance of mild wall thickening. Possible mild colitis. There is diverticulosis of the sigmoid colon without acute diverticulitis. Bladder: Unremarkable. No mass. Reproductive: Unremarkable as visualized. ABDOMEN and PELVIS: Intraperitoneal space: See below. Bones/joints: Mild to moderate degenerative changes throughout the spine. No acute fracture or subluxation is seen. Soft tissues: Unremarkable. Vasculature: Slightly nodular liver surface. The portal vein is patent and mildly dilated measuring 17 mm consistent with history of portal venous hypertension. Small esophageal varices are present. No ascites. The abdominal aorta is heavily calcified but nondilated. Lymph nodes: Unremarkable. No enlarged lymph nodes. IMPRESSION: 1. Slightly nodular liver surface. The portal vein is patent and mildly dilated measuring 17 mm consistent with history of portal venous hypertension. Small esophageal varices are present. No ascites. 2. The spleen is upper normal in size measuring 14 cm. There is an approximate two-point centimeter wedge-shaped area of decreased enhancement peripherally suggesting a small splenic infarct. 3. Bowel loops are nondilated. The appendix is normal. The transverse colon, left colon, and sigmoid colon are contracted which gives the appearance of mild wall thickening. Possible mild colitis. There is diverticulosis of the sigmoid colon without acute diverticulitis. Electronically signed by: Ezio Boogie MD 07/09/23 20:[address] 07/09/23 19:01 Exam(s): CT CHEST With Contrast IV Amt: 87 cc opti 320 EXAM: CT Chest With Intravenous Contrast CLINICAL HISTORY: Reason for exam: cirrhosis, hematemesis. TECHNIQUE: Axial computed tomography images of the chest with intravenous contrast. CTDI is 26.5 mGy and DLP is 1279.7 mGy-cm. Automated exposure control was utilized for the study. A dose lowering technique was utilized adhering to the principles of ALARA. CONTRAST: Patient received 87 cc opti 320 of IV contrast COMPARISON: No relevant prior studies available. FINDINGS: Lungs: Mild emphysematous changes in the lungs. No acute infiltrate is identified. No mass. Pleural space: Unremarkable. No pneumothorax. No significant effusion. Heart: The heart is borderline enlarged. Moderate to severe coronary calcification is present. No pericardial effusion. Bones/joints: Mild degenerative changes throughout the spine. No acute fracture or bone lesion is identified. No dislocation. Soft tissues: Unremarkable. Vasculature: The thoracic aorta is mildly calcified but nondilated. There is no aneurysm or dissection. Several small esophageal varices measuring 5 mm are seen inferiorly near the gastroesophageal junction. No hemorrhage is identified. Lymph nodes: Unremarkable. No enlarged lymph nodes. IMPRESSION: 1. The thoracic aorta is mildly calcified but nondilated. There is no aneurysm or dissection. 2. The heart is borderline enlarged. Moderate to severe coronary calcification is present. No pericardial effusion. 3. Several small esophageal varices measuring 5 mm are seen inferiorly near the gastroesophageal junction. No hemorrhage is identified. 4. Mild emphysematous changes in the lungs. No acute infiltrate is identified. Electronically signed by: Ezio Boogie MD 07/09/23 20:57 PM ECG Additional Comments: Normal sinus rhythm Normal ECG When compared with ECG of 23-DEC-2022 16:44, Nonspecific T wave abnormality now evident in Inferior leads Code Status & VTE Plan Code Status Full code VTE Prophylaxis Plan VTE Prophylaxis will be ordered: Yes Supervising Physician Co-Signing Physician Notes Attending addendum: I have physically seen this patient, have supervised the JACIEL's activities, and agree with the H&P unless as otherwise noted. Assessment and Plan: Hematemesis/portal vein hypertension/small esophageal varices- The patient will be admitted to telemetry for serial cardiac enzymes, serial EKG's, cardiac rhythm monitoring Hemoglobin on admission 11.3 and [address] scan notes portal vein hypertension and small esophageal varices with small splenic infarct Patient has routinely been taking aspirin and clopidogrel, and more recently has been taking Aleve PM to help her sleep at night. Continue Protonix drip and octreotide drips begun in ED H&H every 4 hours Type and screen obtained CBC with differential and renal function panel every morning Consult gastroenterology Esophageal varices and cirrhosis- Distant alcohol history Consult to gastroenterology Hypertension- N.p.o. 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
[2023-07-09] MEDS ORDERED: ONDANSETRON INJ 2 MG/ML 2 ML VIAL IV PRN (21:32)
[2023-07-09] MEDS: PLASMA-LYTE A 1,000 ML IV SCH (21:53)
[2023-07-10] MEDS: PANTOprazole 40 MG in DEXTROSE 5% MINI-B 100 ML IV SCH ×4 (00:03→15:35)
[2023-07-10 01:04] LABS: Basophils # (auto) 0.05 K/uL (0.00-0.20); Basophils % (auto) 0.8 %; Eosinophils # (auto) 0.16 K/uL (0.00-0.50); Eosinophils % (auto) 2.5 %; Hematocrit (blood only) 30.7 % (37.0-47.0); Immature Granulocytes # (auto) 0.02 K/uL (0.01-0.20); Immature Granulocytes % (auto) 0.3 %; Lymphocytes # (auto) 1.42 K/uL (1.20-3.40); Lymphocytes % (auto) 22.3 %; Mean Corpuscular Hemoglobin 30.1 pg (25.0-34.0); Mean Corpuscular Hgb Conc 32.6 g/dL (32.0-36.0); Mean Corpuscular Volume 92.5 fL (80.0-100.0); Monocytes # (auto) 0.69 K/uL (0.11-0.59); Monocytes % (auto) 10.8 %; Neutrophils # (auto) 4.03 K/uL (1.40-6.50); Neutrophils % (auto) 63.3 %; Platelet Count 121 K/uL (130-400); RDW Standard Deviation 50.9 fL (36.4-46.3); Red Blood Count 3.32 M/uL (4.20-5.40); White Blood Count 6.37 K/ul (4.8-10.8)
[2023-07-10] MEDS: OCTREOTIDE ACETATE 500 MCG in 0.9 % SODIUM CHLORIDE 100 ML IV SCH ×2 (04:38→15:34)
[2023-07-10 06:33] LABS: Basophils # (auto) 0.05 K/uL (0.00-0.20); Basophils % (auto) 0.8 %; Eosinophils # (auto) 0.28 K/uL (0.00-0.50); Eosinophils % (auto) 4.7 %; Hematocrit (blood only) 27.5 % (37.0-47.0); Immature Granulocytes # (auto) 0.03 K/uL (0.01-0.20); Immature Granulocytes % (auto) 0.5 %; Lymphocytes # (auto) 1.68 K/uL (1.20-3.40); Lymphocytes % (auto) 28.3 %; Mean Corpuscular Hemoglobin 29.8 pg (25.0-34.0); Mean Corpuscular Hgb Conc 32.7 g/dL (32.0-36.0); Mean Corpuscular Volume 91.1 fL (80.0-100.0); Mean Platelet Volume 11.4 fL (9.4-12.4); Monocytes # (auto) 0.72 K/uL (0.11-0.59); Monocytes % (auto) 12.1 %; Neutrophils # (auto) 3.17 K/uL (1.40-6.50); Neutrophils % (auto) 53.6 %; Platelet Count 113 K/uL (130-400); RDW Coefficient of Variation 15.1 % (11.5-14.5); RDW Standard Deviation 50.2 fL (36.4-46.3); Red Blood Count 3.02 M/uL (4.20-5.40); White Blood Count 5.93 K/ul (4.8-10.8)
[2023-07-10 07:12] LABS: Albumin Globulin Ratio 1.4 (0.9-2); Albumin Level 3.2 gm/dl (3.4-5.0); BUN Creatinine Ratio 30.3 (10-20); Bilirubin,Total 0.9 mg/dl (0.2-1.0); Calcium 8.2 mg/dl (8.6-10.3); Creatinine Clr Calc Pharmacy 56.6 ml/min; Est GFR (African American) 87.1 ml/min; Est GFR (Non-African American) 75.1 ml/min; Globulin 2.3 gm/dl (2.5-4.0); Magnesium 1.9 mg/dl (1.7-2.4); Total Protein 5.5 gm/dl (6.0-8.3)
[2023-07-10 07:36] LABS: INR 1.1 (0.9-1.1); Prothrombin Time 11.9 Seconds (9.0-12.0)
[2023-07-10] MEDS: PLASMA-LYTE A 1,000 ML IV SCH (07:42)
--- NOTE | 2023-07-10 09:31 | Anesthesiology Consultation ---
Date of Service July 10, 2023 Assessment & Plan Chart Review Chart Review: Acceptable Risk for Surgery, Patient NOT seen in Pre Admission Testing and geology professor initiated Consults Requested none Proposed Anesthesia Anesthesia Type: MAC History Surgery Operation Date: 07/10/23 16:30 Proposed Procedures p Esophagogastroduodenoscopy Dr John Lopez, DO Height/Weight Height: 4 ft 11 in Weight: 82 kg Allergies Allergy/AdvReac Type Severity Reaction Status Date / Time codeine AdvReac Severe Headache Verified 07/09/23 21:01 Medications Home Medications Medication Instructions Recorded Confirmed Last Taken cetirizine 10 mg tablet (Zyrtec) 10 mg PO DAILY PRN seasonal 09/05/22 07/09/23 Unknown allergies atorvastatin 20 mg tablet (Lipitor) 20 mg PO QAM 10/28/22 07/09/23 01/26/23 ferrous sulfate 325 mg (65 mg 325 mg PO DAILY #90 tabs 12/31/22 07/09/23 01/26/23 iron) tablet clopidogrel 75 mg tablet (Plavix) 75 mg PO QAM #90 tabs 01/13/23 07/09/23 01/20/23 levothyroxine 50 mcg tablet 50 mcg PO QAM #90 tabs 04/20/23 07/09/23 Unknown omeprazole 40 mg capsule,delayed 40 mg PO QAM #90 caps 04/20/23 07/09/23 Unknown release fluoxetine 40 mg capsule (Prozac) 40 mg PO QAM #90 caps 06/09/23 07/09/23 Unknown triamterene 37.5 1 cap PO QAM #90 caps 06/09/23 07/09/23 Unknown mg-hydrochlorothiazide 25 mg capsule Active Medications Generic Name Dose Route Start Last Admin Trade Name Freq PRN Reason Stop Dose Admin Octreotide Acetate 500 mcg/ 100.5 mls @ 10.05 mls/hr 07/09/23 18:00 07/10/23 04:38 Sodium Chloride IV 08/08/23 17:59 50 mcg/hr .Q10H BROOKE 10.1 mls/hr Administration 50 MCG/HR Pantoprazole Sodium 40 mg/ 100 mls @ 20 mls/hr 07/09/23 18:15 07/10/23 04:38 Dextrose IV 08/08/23 18:14 8 mg/hr Q5H BROOKE 20 mls/hr Administration 8 MG/HR Parenteral Electrolytes 1,000 mls @ 100 mls/hr 07/09/23 21:45 07/10/23 07:42 Plasma-Lyte A Ph 7.4 IV 07/10/23 17:44 100 mls/hr .Q10H BROOKE Administration Past Medical History Medical History Allergies Hyperlipidemia Melena "not anymore that she knows of" Symptomatic anemia Acute GI bleeding Internal carotid artery stent present History of COVID-spring, sore throat and stomach cramps, cough-denies hospitalization- symptoms resolved History of anesthesia reaction hypotension Stroke history, found on the brain MRI. no current deficits. Transient ischemic attack (TIA) ~6 months ago, does not follow with neurology. Carotid artery stenosis 80-90% stenosis R ICA Gastric reflux Hypothyroidism Anxiety Hypertension Past Family History Family History Mother Diabetes Aneurysm Sister Ovarian cancer Other No family history of adverse response to anesthesia Denies family history of Prostate cancer Myocardial infarction Breast cancer Colorectal cancer Hypertension Past Surgical History Surgical History History of colonoscopy S/P partial hysterectomy S/P wisdom tooth extraction Social History Smoking Status: Former smoker tobacco type: cigarettes Do You Dip or Chew Tobacco: No Hx Alcohol Use: Yes (Has quit drinking this past year) Alcohol type: wine and hard liquor alcohol intake frequency: holidays/special occasions only Hx Substance Use: No substance use type: does not use Physical Exam Vital Signs Last Vital Signs Temp 36.3 C L 07/10/23 07:29 Pulse 78 07/10/23 07:29 Resp 16 07/10/23 07:29 BP 150/68 H 07/10/23 07:29 Pulse Ox 95 07/10/23 07:29 O2 Del Method Room Air 07/10/23 07:29 Testing Laboratory Results 07/10/23 05:46 07/10/23 05:46 PT 11.9 Seconds (9.0-12.0) 07/10/23 05:46 INR 1.1 (0.9-1.1) 07/10/23 05:46 APTT 28 Seconds (21-31) 07/09/23 19:45 Blood Type A Positive 07/09/23 18:07 Antibody Screen NEGATIVE 07/09/23 18:07 Electrocardiogram Date: 07/09/23 9 09-JUL-2023 18:00:47 [facility] ROUTINE RETRIEVAL Normal sinus rhythm Normal ECG When compared with ECG of 23-DEC-2022 16:44, Nonspecific T wave abnormality now evident in Inferior leads 25mm/s10mm/[id number] 243CID: 20Referred by: REFERRED SELF Unconfirmed Vent. rate 77 BPM TX interval 136 ms QRS duration 92 ms QT/QTc 424/479 ms P-R-T axes Chest X-Ray Date: 07/09/23 Other Testing XR chest 1V portable CLINICAL HISTORY: gi bleed TECHNIQUE: Single frontal radiograph of the chest was obtained. Comparison: Comparison is made to chest radiograph 12/23/2022 FINDINGS: Exam is limited by underpenetration. Cardiomegaly is noted. The lungs are clear. No evidence of pleural effusion or pneumothorax. IMPRESSION: No acute chest disease.
--- NOTE | 2023-07-10 09:46 | Gastrointestinal Consultation ---
Date of Consultation July 10, 2023 Assessment & Plan (1) Hematemesis: Plan Likely patient's hematemesis is related to her history of esophageal varices in the setting of nsaid use. I had discussed the case with Dr. Khan who helped advise on plan. - continue with protonix and octreotide drips. - we discussed avoidance of nsaids. - keep NPO. - will plan for EGD today to further evaluate. - monitor hgb/hct and transfuse as needed. Supervising Physician Co-Signing Physician Notes I saw the patient and agree with the findings as documented by BLAKE Glover Proceed with EGD. risks/benefits and procedure discussed with patient, who agrees to proceed History of Present Illness Reason for Consultation: History of Cirrhosis, varices, hematemesis. Requesting Physician: Jordan Ace PA-C Attending Physician: Chico Perez MD History of Present Illness Patient is a 77 year old woman with a past medical history of cirrhosis, esophageal varices who presented to the emergency department via EMS for evaluation of 2 episodes of hematemesis which she reports consisted of a large amount of bright red blood. She tells me she had been using aleve to help her sleep at night recently. She tells me nausea started suddenly yesterday before she stated with the episodes of vomiting. upon evaluation in the ED her hgb was 11.3 which had fallen today to 9. She tells me that since admission she has not had any further nausea or emesis. she does report having some melena yesterday but has not moved her bowels yet today. she denies any abdominal pain or reflux. EGD 01/27/2023 large esophageal varices which were banded, and portal hypertensive gastropathy. Allergies Allergy/AdvReac Type Severity Reaction Status Date / Time codeine AdvReac Severe Headache Verified 07/10/23 13:41 Home Medications Medication Instructions Recorded Confirmed Type cetirizine 10 mg tablet (Zyrtec) 10 mg PO DAILY PRN seasonal 09/05/22 07/10/23 History allergies atorvastatin 20 mg tablet (Lipitor) 20 mg PO QAM 10/28/22 07/10/23 History ferrous sulfate 325 mg (65 mg 325 mg PO DAILY #90 tabs 12/31/22 07/10/23 Rx iron) tablet clopidogrel 75 mg tablet (Plavix) 75 mg PO QAM #90 tabs 01/13/23 07/10/23 Rx levothyroxine 50 mcg tablet 50 mcg PO QAM #90 tabs 04/20/23 07/10/23 Rx omeprazole 40 mg capsule,delayed 40 mg PO QAM #90 caps 04/20/23 07/10/23 Rx release fluoxetine 40 mg capsule (Prozac) 40 mg PO QAM #90 caps 06/09/23 07/10/23 Rx triamterene 37.5 1 cap PO QAM #90 caps 06/09/23 07/10/23 Rx mg-hydrochlorothiazide 25 mg capsule Patient History Medical History Allergies Hyperlipidemia Melena "not anymore that she knows of" Symptomatic anemia Acute GI bleeding Internal carotid artery stent present History of COVID-spring, sore throat and stomach cramps, cough-denies hospitalization- symptoms resolved History of anesthesia reaction hypotension Stroke history, found on the brain MRI. no current deficits. Transient ischemic attack (TIA) ~6 months ago, does not follow with neurology. Carotid artery stenosis 80-90% stenosis R ICA Gastric reflux Hypothyroidism Anxiety Hypertension Surgical History History of colonoscopy S/P partial hysterectomy S/P wisdom tooth extraction Family History Mother Diabetes Aneurysm Sister Ovarian cancer Other No family history of adverse response to anesthesia Denies family history of Prostate cancer Myocardial infarction Breast cancer Colorectal cancer Hypertension Social History Smoking Status: Former smoker Tobacco Type: Cigarettes Age Started Using Tobacco: 11; Age Quit Using Tobacco: 69; packs per day: 0.5; Second Hand Exposure: No; Do You Dip or Chew Tobacco: No; Hx Alcohol Use: Yes (Has quit drinking this past year) Alcohol type: wine and hard liquor Alcohol Intake Frequency: Monthly or Less Hx Substance Use: No Preferred Language: Turkmen Communication Ability: Effective Visual Impairment: No Limitations Hearing Ability: Normal Phlebotomy Instructor Required: No Beliefs That Will Affect Care: None marital status: / Current Living Situation: Family Current Living Situation Comment: Split level, sister lives upstairs, patient lives downstairs current occupational status: retired current occupation: used to work as an patient assistant of a retail store Other Information That Helps Us Care for You: No Feels Safe at Home: Yes Safety Concerns: Feels Safe At This Time Childhood Exposure to Second-Hand Smoke: Yes Diet: regular Diet Comment: regular Dental Care, Regularly: No Physical Activity Frequency: 3-4 Times per Week Seatbelt Use: always Sunscreen Use: No Assistive Devices: None Review of Systems Review of Systems: All systems reviewed & are unremarkable except as noted in HPI & below Physical Exam Constitutional: WD/WN, vitals as above Respiratory: normal respiratory effort, lungs clear to auscultation Cardiovascular: RRR, no murmur, no edema Gastrointestinal (Abdomen): normal bowel sounds, soft, nontender, no hepatosplenomegaly Skin: no rashes, warm and dry Psychiatric: Orientation: alert and oriented x 3 Affect: euthymic affect Results & Data Vital Signs (Past 12 Hours) Vital Signs Temp Pulse Pulse Resp BP Pulse Ox Pulse Ox 07/10/23 07:29 97.3 F L 78 16 150/68 H 95 07/10/23 03:20 97.9 F 80 18 134/70 95 07/10/23 00:21 97.5 F L 81 16 138/74 94 07/10/23 00:01 82 07/09/23 23:58 94 07/09/23 23:58 94 07/09/23 23:20 82 19 168/74 H O2 Del Method O2 Del Method 07/10/23 07:29 Room Air 07/10/23 03:20 Room Air 07/10/23 00:21 Room Air 07/10/23 00:01 07/09/23 23:58 Room Air 07/09/23 23:58 Room Air 07/09/23 23:20 PG Care Time/CCT Total # of Minutes Spent Total Time Spent with Patient: Total time spent is greater than 50% in coordination of care (as documented) at patient's floor/unit and/or counseling patient: Coding Level of Care Code 63705 INT INP/OBS CARE 2/55MIN Diagnoses Hematemesis K92.0 Nausea presence: with nausea (1) Hematemesis Nausea presence: with nausea Qualified Code(s): K92.0 - Hematemesis
[2023-07-10 12:16] LABS: Basophils # (auto) 0.11 K/uL (0.00-0.20); Basophils % (auto) 1.9 %; Eosinophils # (auto) 0.38 K/uL (0.00-0.50); Eosinophils % (auto) 6.5 %; Hematocrit (blood only) 27.5 % (37.0-47.0); Hemoglobin 9.1 g/dl (12.0-16.0); Immature Granulocytes # (auto) 0.03 K/uL (0.01-0.20); Immature Granulocytes % (auto) 0.5 %; Lymphocytes # (auto) 1.48 K/uL (1.20-3.40); Lymphocytes % (auto) 25.3 %; Mean Corpuscular Hemoglobin 30.2 pg (25.0-34.0); Mean Corpuscular Hgb Conc 33.1 g/dL (32.0-36.0); Mean Corpuscular Volume 91.4 fL (80.0-100.0); Monocytes # (auto) 0.81 K/uL (0.11-0.59); Monocytes % (auto) 13.8 %; Neutrophils # (auto) 3.05 K/uL (1.40-6.50); Platelet Count 126 K/uL (130-400); RDW Coefficient of Variation 15.1 % (11.5-14.5); RDW Standard Deviation 49.9 fL (36.4-46.3); Red Blood Count 3.01 M/uL (4.20-5.40); White Blood Count 5.86 K/ul (4.8-10.8)
--- NOTE | 2023-07-10 12:18 | Hospitalist Progress Note ---
Date of Service July 10, 2023 Assessment & Plan (1) Hematemesis: Plan: Acute blood loss anemia -Had two episodes of hematemesis with blood clots prior to arrival, no further hematemesis since arrival -Likely has an ulcer from using Aleve PM while also on aspirin and plavix for previous carotid endarterectomy -GI consult - EGD today with Dr. Khan showing small varices, no ulcers or evidence of bleeding - Stop octeratide - Clear liquids, advanced diet as tolerated - Protonix 40mg daily - Repeat EGD in one year - Avoid NSAIDs -Monitor CBC, hgb on admission 11.3 -Hgb stable 9.1 - (2) Esophageal varices in cirrhosis: Plan: -See hematemesis -GI consulted (3) Carotid artery stenosis: Plan: - Restart plavix - Continue lipitor (4) Hypertension: Plan: -Stable - Resume triamterene-HCTZ 07/11 (5) Hypothyroidism: Plan: -Resume levothyroxine Plan Dispo: continued inpatient stay DVT proh: lovenox Admission and Anticipated Discharge Date Admission Date: July 09, 2023 Subjective Patient seen resting in bed. Denies any further epsiodes of emesis, has also not had a bowel movement. Denies pain. I also discussed with her the use of NSAIDs and her varices, she states she has not been sleeping without Aleve PM. I tried to explain she could benefit from just the sleep aid portion. Patient also requesting hot food - reiterated she is NPO for EGD. Tele - SR 80s Review of Systems Review of Systems: All systems reviewed & are unremarkable except as noted in Subjective Physical Exam Physical Exam: General: NAD, VS as above Resp: normal respiratory effort, lungs clear to auscultation CV: RRR, no murmur, Abd: normal bowel sounds, non tender, no hepatosplenomegaly Extremities: Moves all extremities Neuro: A&O x3, Skin: intact, no lesions noted Results & Data Results & Data Vital Signs (Past 12 Hours) Vital Signs Temp Pulse Pulse Resp BP Pulse Ox O2 Del Method 07/10/23 11:00 80 07/10/23 10:28 36.7 C 76 17 134/66 91 Room Air 07/10/23 07:29 36.3 C L 78 16 150/68 H 95 Room Air 07/10/23 03:20 36.6 C 80 18 134/70 95 Room Air 07/10/23 00:21 36.4 C L 81 16 138/74 94 Room Air Laboratory Results CBC and chemistry reviewed PG Care Time/CCT Total # of Minutes Spent Total Time Spent with Patient: Total time spent is greater than 50% in coordination of care (as documented) at patient's floor/unit and/or counseling patient: Coding Level of Care Code 30971 SUB INP/OBS CARE 2/35MIN Diagnoses Hematemesis K92.0 Nausea presence: with nausea Esophageal 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 Carotid artery stenosis I65.29 Hypertension I10 Hypothyroidism E03.9 (1) Hematemesis Nausea presence: with nausea Qualified Code(s): K92.0 - Hematemesis
[2023-07-10] MEDS ORDERED: PROPOFOL IV EMULSION 10 MG/ML 20 ML VIAL IV ONE (13:44)
[2023-07-10] MEDS ORDERED: LIDOCAINE 2% 2 ML VIAL/AMP(20MG/ML) INFIL ONE ×2 (13:44→13:46)
--- NOTE | 2023-07-10 14:11 | GI REPORT ---
Patient Name: Suri Kim Procedure Date: 07/10/2023 1:34 PM Date of : 1945 Admit Type: Inpatient Age: 77 Gender: Female Attending MD: Heron Khan MD, Procedure: Upper GI endoscopy Providers: Heron Khan MD Referring MD: Chico Perez Indications: Hematemesis Medicines: Monitored Anesthesia Care Complications: No immediate complications. Estimated blood loss: None. Estimated Blood Loss: Estimated blood loss: none. Procedure: Pre-Anesthesia Assessment: - Prior Anticoagulants: The patient has taken Eliquis (apixaban), last dose was 1 day prior to procedure. - ASA Grade Assessment: III - A patient with severe systemic disease. After obtaining informed consent, the endoscope was passed under direct vision. Throughout the procedure, the patient's blood pressure, pulse, and oxygen saturations were monitored continuously. The Endoscope was introduced through the mouth, and advanced to the second part of duodenum. The upper GI endoscopy was accomplished without difficulty. The patient tolerated the procedure well. Findings: Small (< 5 mm) varices were found in the distal esophagus. nonbleeding. Patchy mildly erythematous mucosa without bleeding was found in the gastric antrum. no evidence of ulcers or bleeding. The duodenal bulb and second portion of the duodenum were normal. Impression: - Small (< 5 mm) esophageal varices. - Erythematous mucosa in the antrum. - Normal duodenal bulb and second portion of the duodenum. - No specimens collected. Recommendation: - Advance diet as tolerated today. -d/c octreotide -protonix 40 mg daily - Repeat upper endoscopy in 1 year for surveillance. - Return patient to [facility] for ongoing care. Heron Khan MD 07/10/2023 2:11:16 PM This report has been signed electronically. Note Initiated On: 07/10/2023 1:34 PM Number of Addenda: 0 I attest to the content of the Intraoperative Record and orders documented therein, exceptions below {[id number]}
--- NOTE | 2023-07-10 14:31 | Anesthesiology Progress Note ---
Date of Service July 10, 2023 Anesthesia Post Procedure Vital Signs Vital Signs: Temp Pulse Pulse Pulse Resp BP BP 07/10/23 14:26 73 16 07/10/23 14:11 75 18 07/10/23 13:42 36.3 C L 78 18 138/63 07/10/23 11:00 80 07/10/23 10:28 36.7 C 76 17 07/10/23 07:29 36.3 C L 78 16 07/10/23 03:20 36.6 C 80 18 07/10/23 00:21 36.4 C L 81 16 07/10/23 00:01 82 07/09/23 23:58 07/09/23 23:58 07/09/23 23:20 82 19 07/09/23 19:38 81 19 07/09/23 19:04 79 07/09/23 18:53 07/09/23 17:48 37.0 C 79 20 127/56 L BP Pulse Ox Pulse Ox O2 Del Method O2 Del Method 07/10/23 14:26 147/58 H 94 Room Air 07/10/23 14:11 115/42 L 94 Room Air 07/10/23 13:42 91 Room Air 07/10/23 11:00 07/10/23 10:28 134/66 91 Room Air 07/10/23 07:29 150/68 H 95 Room Air 07/10/23 03:20 134/70 95 Room Air 07/10/23 00:21 138/74 94 Room Air 07/10/23 00:01 07/09/23 23:58 94 Room Air 07/09/23 23:58 94 Room Air 07/09/23 23:20 168/74 H 07/09/23 19:38 137/69 98 Room Air 07/09/23 19:04 07/09/23 18:53 95 Room Air 07/09/23 17:48 97 Room Air Transfer of Care Handoff Completed per policy Notes Mental Status: alert / awake / arousable and participated in evaluation Patient Amnestic to Procedure: Yes Nausea / Vomiting: adequately controlled Pain: adequately controlled Airway Patency, RR, SpO2: stable & adequate BP & HR: stable & adequate Hydration State: stable & adequate Anesthetic Complications: no major complications apparent
[2023-07-10] MEDS: FLUoxetine HCL 20 MG CAP PO SCH (16:57)
--- NOTE | 2023-07-10 17:22 | Electrocardiogram Report ---
Test Reason : Blood Pressure : / mmHG Vent. Rate : 077 BPM Atrial Rate : 077 BPM P-R Int : 136 ms QRS Dur : 092 ms QT Int : 424 ms P-R-T Axes : 003 -26 -13 degrees QTc Int : 479 ms Normal sinus rhythm Normal ECG When compared with ECG of 23-DEC-2022 16:44, Nonspecific T wave abnormality now evident in Inferior leads Confirmed by Edward Ventura ([id number]) on 07/10/2023 5:21:27 PM Referred By: REFERRED SELF Confirmed By:Calos Ventura
[2023-07-11] MEDS: LEVOTHYROXINE SODIUM 50 MCG TABLET PO SCH (05:50)
[2023-07-11 07:14] LABS: Hematocrit (blood only) 25.5 % (37.0-47.0); Hemoglobin 8.4 g/dl (12.0-16.0); Mean Corpuscular Hgb Conc 32.9 g/dL (32.0-36.0); Mean Corpuscular Volume 91.1 fL (80.0-100.0); Mean Platelet Volume 10.8 fL (9.4-12.4); Platelet Count 100 K/uL (130-400); RDW Coefficient of Variation 15.1 % (11.5-14.5); RDW Standard Deviation 50.5 fL (36.4-46.3); White Blood Count 4.28 K/ul (4.8-10.8)
[2023-07-11 07:32] LABS: Prothrombin Time 11.4 Seconds (9.0-12.0)
[2023-07-11 07:55] LABS: Albumin Globulin Ratio 1.3 (0.9-2); Albumin Level 3.1 gm/dl (3.4-5.0); Bilirubin,Total 0.8 mg/dl (0.2-1.0); Calcium 8.2 mg/dl (8.6-10.3); Creatinine Clr Calc Pharmacy 56.7 ml/min; Est GFR (African American) 88.5 ml/min; Est GFR (Non-African American) 76.3 ml/min; Globulin 2.3 gm/dl (2.5-4.0); Magnesium 1.9 mg/dl (1.7-2.4); Potassium 3.7 mmol/L (3.5-5.1); Total Protein 5.4 gm/dl (6.0-8.3)
[2023-07-11] MEDS: FLUoxetine HCL 20 MG CAP PO SCH (08:51)
[2023-07-11] MEDS: TRIAMTERENE/HCTZ 37.5/25MG CAP PO SCH (08:52)
[2023-07-11] MEDS: ATORVASTATIN 20 MG TAB PO SCH (08:52)
[2023-07-11] MEDS: CLOPIDOGREL BISULFATE 75 MG TAB PO SCH (08:53)
[2023-07-11] MEDS: ENOXAPARIN INJ 40 MG/0.4 ML SYR SQ SCH (08:53)
[2023-07-11] MEDS ORDERED: PANTOprazole 40 MG in SYRINGE 0 ML IV SCH (11:00)
--- NOTE | 2023-07-11 13:19 | Hospitalist Progress Note ---
Date of Service July 11, 2023 Assessment & Plan (1) Hematemesis: Plan: Acute blood loss anemia due to hematemesis due to esophageal varices in cirrhosis -Had two episodes of hematemesis with blood clots prior to arrival, no further hematemesis since arrival -Reports she had not been taking aspirin for last couple of months due to concern of easy bruising though was supposed to be on DAPT with ASA/plavix for previous right TCAR 11/03/22 -Had been taking Aleve PM - recommend discontinuing in favor of melatonin - will start 07/11 PM -GI consult - EGD 07/[address] Khan showing small varices, no ulcers or evidence of bleeding - Stopped octreotide - Tolerated clear liquids, advanced diet as tolerated - Protonix 40mg daily - Repeat EGD in one year - Avoid NSAIDs - Monitor CBC, hgb on admission 11.3 -Hgb decreased to 8.4 this Am with drop in platelets as well -Home iron supplementation resumed 07/11 -Monitor for additional day to ensure not dropping further to warrant transfusion (2) Esophageal varices in cirrhosis: Plan: - See hematemesis above - GI consulted (3) Carotid artery stenosis: Plan: - Continue plavix, will hold ASA for now - will need clarification with outpatient vascular team about resumption of ASA in addition to plavix in light of her hematemesis events - Continue lipitor (4) Hypertension: Plan: - Stable - Continue triamterene-HCTZ 07/11 (5) Hypothyroidism: Plan: -Continue levothyroxine Plan Dispo: continued inpatient stay, anticipate discharge 07/12 pending Hgb/platelet levels DVT proh: lovenox Admission and Anticipated Discharge Date Admission Date: July 09, 2023 Subjective Overall much improved this morning. Denies any lightheadedness/dizziness, chest pain, or shortness of breath. Denies any recurrent hematemesis or any nausea/vomiting. Moving bowels well. Tolerating p.o. well. Reports she had not been taking aspirin for last couple of months due to concern of easy bruising Review of Systems Review of Systems: Per subjective Physical Exam Physical Exam: General: Well-appearing, NAD, mild pallor HEENT: Normal conjunctivae Cardiovascular: RRR, no M/R/G Pulmonary: CTAB, no W/R/R Abdomen: Soft, NT/ND, no guarding Extremities: Moving all extremities, no pedal edema Integumentary: No suspicious rash or lesion on exposed skin Neurologic: AAOx3, no focal deficits Psychiatric: Appropriate mood/affect Results & Data Results & Data Vital Signs (Past 12 Hours) Vital Signs Temp Pulse Resp BP BP Pulse Ox O2 Del Method 07/11/23 11:52 36.6 C 73 16 132/70 97 Room Air 07/11/23 08:00 Room Air 07/11/23 07:58 36.7 C 75 17 134/63 94 Room Air 07/11/23 04:06 37.0 C 80 18 155/63 H 91 Room Air 07/11/23 03:00 36.8 C 81 18 138/65 92 Room Air Laboratory Results Reviewed CBC, PT/INR, CMP from [facility] for drop in hemoglobin to 8.4, drop in platelet to 100, increase in AST to 67. PG Care Time/CCT Total # of Minutes Spent Total Time Spent with Patient: Total time spent is greater than 50% in coordination of care (as documented) at patient's floor/unit and/or counseling patient: Coding Level of Care Code 72818 SUB INP/OBS CARE 3/50MIN Diagnoses Hematemesis K92.0 Nausea presence: with nausea Esophageal 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 Carotid artery stenosis I65.29 Hypertension I10 Hypothyroidism E03.9 (1) Hematemesis Nausea presence: with nausea Qualified Code(s): K92.0 - Hematemesis
[2023-07-11] MEDS ORDERED: MELATONIN 3 MG TAB PO PRN (14:17)
[2023-07-11] MEDS: FERROUS SULFATE 325 MG TAB PO SCH (15:51)
[2023-07-12] MEDS: LEVOTHYROXINE SODIUM 50 MCG TABLET PO SCH (04:36)
[2023-07-12 06:35] LABS: Basophils # (auto) 0.04 K/uL (0.00-0.20); Basophils % (auto) 0.9 %; Eosinophils # (auto) 0.32 K/uL (0.00-0.50); Eosinophils % (auto) 7.1 %; Hematocrit (blood only) 27.7 % (37.0-47.0); Hemoglobin 8.8 g/dl (12.0-16.0); Immature Granulocytes # (auto) 0.02 K/uL (0.01-0.20); Immature Granulocytes % (auto) 0.4 %; Lymphocytes # (auto) 1.29 K/uL (1.20-3.40); Lymphocytes % (auto) 28.7 %; Mean Corpuscular Hemoglobin 29.2 pg (25.0-34.0); Mean Corpuscular Hgb Conc 31.8 g/dL (32.0-36.0); Mean Platelet Volume 10.9 fL (9.4-12.4); Monocytes # (auto) 0.63 K/uL (0.11-0.59); Neutrophils # (auto) 2.19 K/uL (1.40-6.50); Neutrophils % (auto) 48.9 %; Platelet Count 104 K/uL (130-400); RDW Coefficient of Variation 14.9 % (11.5-14.5); RDW Standard Deviation 50.3 fL (36.4-46.3); Red Blood Count 3.01 M/uL (4.20-5.40); White Blood Count 4.49 K/ul (4.8-10.8)
[2023-07-12 06:42] LABS: Prothrombin Time 11.3 Seconds (9.0-12.0)
[2023-07-12 07:09] LABS: Albumin Globulin Ratio 1.4 (0.9-2); Albumin Level 3.3 gm/dl (3.4-5.0); BUN Creatinine Ratio 19.1 (10-20); Bilirubin,Total 0.8 mg/dl (0.2-1.0); Calcium 8.7 mg/dl (8.6-10.3); Est GFR (African American) 97.1 ml/min; Est GFR (Non-African American) 83.8 ml/min; Globulin 2.4 gm/dl (2.5-4.0); Magnesium 1.8 mg/dl (1.7-2.4); Potassium 3.6 mmol/L (3.5-5.1); Total Protein 5.7 gm/dl (6.0-8.3)
[2023-07-12] MEDS: FLUoxetine HCL 20 MG CAP PO SCH (08:36)
[2023-07-12] MEDS: ATORVASTATIN 20 MG TAB PO SCH (08:36)
[2023-07-12] MEDS: TRIAMTERENE/HCTZ 37.5/25MG CAP PO SCH (08:37)
[2023-07-12] MEDS: CLOPIDOGREL BISULFATE 75 MG TAB PO SCH (08:37)
[2023-07-12] MEDS: FERROUS SULFATE 325 MG TAB PO SCH (08:38)
[2023-07-12] MEDS: ENOXAPARIN INJ 40 MG/0.4 ML SYR SQ SCH (08:38)
--- NOTE | 2023-07-12 11:38 | Discharge Summary ---
Date of Service July 12, 2023 Admission HPI Per Admitting Provider Suri is a 77 year old female with a PMH significant for recently diagnosed Cirrhosis (Workup still in process) with large esophageal varices and gastric AVM, S/P right transcarotid artery revascularization with Dr. Khan on 11/03 on aspirin and plavix, previous alcohol abuse, hypothyroidism, and dysphonia who presented to the [facility] ED on 07/09/23 via EMS with a complaint of hematemesis. She remained stable in the ED. Labs were significant for a hgb of 11.3 (down from 12.2 as of 05/11), BUN of 29, chloride of 110, total bili of 1.2, AST of 45, alk phos of 140. Chest xray was negative for acute findings. CT of the chest with IV con was read as "1. The thoracic aorta is mildly calcified but nondilated. There is no aneurysm or dissection 2. The heart is borderline enlarged. Moderate to severe coronary calcification is present. No pericardial effusion. 3. Several small esophageal varices measuring 5 mm are seen inferiorly near the gastroesophageal junction. No hemorrhage is identified. 4. Mild emphysematous changes in the lungs. No acute infiltrate is identified.". CT of the abd/pelvis w/IV was read as "1. Slightly nodular liver surface. The portal vein is patent and mildly dilated measuring 17 mm consistent with history of portal venous hypertension. Small esophageal varices are present. No ascites. 2. The spleen is upper normal in size measuring 14 cm. There is an approximate two-point centimeter wedge-shaped area of decreased enhancement peripherally suggesting a small splenic infarct. 3. Bowel loops are nondilated. The appendix is normal. The transverse colon, left colon, and sigmoid colon are contracted which gives the appearance of mild wall thickening. Possible mild colitis. There is diverticulosis of the sigmoid colon without acute diverticulitis.".". Prior to admission the patient was started on a protonix drip, octreotide drip, given 4 mg IV zofran, and 1L NSS. At the time of the exam the patient was lying in bed in no acute distress. She had been in her normal state of health until this afternoon when she started to feel nauseous. She took a nap but when she woke she vomited blood into a plastic grocery bag. She then vomited one more time into her toilet which consisted of bright red blood and clots. She states that she has not vomited since arrival to the ED. When asked about NSAID use she states that she has been taking Aleve PM most nights for sleep. I confirmed that she was only using it for sleep and not pain. I explained to her how dangerous NSAIDs can be with her hx of cirrhosis and varices and instructed her to discontinue the medication. I also stressed the importance of speaking with her PCP prior to starting a new medications. She denies recent alcohol use, fever, chills, ,chest pain, SOB, dysuria, hematuria, melena, and recent trauma. She is a full code and would want her daughter to make medical decisions for her if she cannot make them herself. Please refer to Dr. Hale's attestation for any changes to the treatment plan Admission Exam Per Admitting Provider General: In no acute distress, stated age, well-nourished, good hygiene HEENT: Normocephalic, atraumatic, no scleral icterus, pupils around round, symmetrical, and reactive to light, moist mucus membranes, trachea midline, no thyromegaly Chest/Pulm: No respiratory distress, symmetrical chest expansion, clear breath sounds throughout Cardiac: RRR, no murmurs noted Abdomen: Negative for ascites and bruising, normoactive bowel sounds, soft, non- tender to palpation throughout Musculoskeletal: Symmetrical and without signs of acute trauma, upper and lower extremities with full ROM, no atrophy, spasticity, or flaccidity Extremities: Radial, dorsalis pedis, and posterior tibial pulses are intact and symmetrical, no edema noted in the BL LE's Skin: Warm, dry, no rashes , lesions, or scars noted Neuro: Alert and oriented to person, place, month, year, and president, no focal defects, no tremors noted Psych: No acute distress, calm and cooperative during the exam Principal Diagnosis Hematemesis Discharge Exam General: Well-appearing, NAD HEENT: Normal conjunctivae Cardiovascular: RRR Pulmonary: CTAB, no W/R/R Abdomen: Soft, NT/ND, no guarding Extremities: Moving all extremities, no pedal edema Integumentary: No suspicious rash or lesion on exposed skin Neurologic: AAOx3, no focal deficits Psychiatric: Appropriate mood/affect Discharge Data Allergies Allergy/AdvReac Type Severity Reaction Status Date / Time codeine AdvReac Severe Headache Verified 07/10/23 13:41 Consultations 07/09/23 21:01 ED Decision to Admit Stat 07/09/23 21:51 Consult Gastroenterology Routine Procedures Performed Operation Date: 07/10/23 16:30 Actual Procedures p Esophagogastroduodenoscopy - Heron Khan MD Ordered Studies 07/09/23 19:01 CT abd pelvis IV con only Stat CT chest diagnostic w con Stat Hospital Course (1) Hematemesis: Acute blood loss anemia due to hematemesis due to esophageal varices in cirrhosis + Aleve use with antiplatelets -Had two episodes of hematemesis with blood clots prior to arrival, no further hematemesis since arrival -Reports she had not been taking aspirin for last couple of months due to concern of easy bruising though was supposed to be on DAPT with ASA/plavix for previous right TCAR 11/03/22 - Hold ASA on discharge. Continue Plavix. Will need outpatient discussion with vascular team whether or not to reinitiate DAPT -Had been taking Aleve PM - recommend discontinuing in favor of melatonin PRN - prescription sent to pharmacy. If still difficulties with sleeping, recommend discussing further options with PCP -GI consult - EGD 07/[address] Khan showing small varices, no ulcers or evidence of bleeding - Octreotide was stopped - Diet advanced and tolerated - Continue Protonix 40mg daily - Repeat EGD in one year - Avoid NSAIDs - Monitor CBC, hgb on admission 11.3 -Hgb on discharge 8.8 - recommend outpatient recheck and further management -Home iron supplementation resumed 07/11 - to continue (2) Esophageal varices in cirrhosis: - See hematemesis above - GI consulted (3) Carotid artery stenosis: - Continue plavix, will hold ASA for now - will need clarification with outpatient vascular team about resumption of ASA in addition to plavix in light of her hematemesis events - Continue lipitor (4) Hypertension: - Stable - Continue triamterene-HCTZ 07/11 (5) Hypothyroidism: -Continue levothyroxine Total Time Total Time Spent Total Time Spent (In Minutes): 35 Total Time Includes: Examination of the Patient, Discharge Planning and Me dication Reconciliation Discharge Plan Discharge Items Patient Disposition: Home - Self-Care Reason For Visit: HEMATEMESIS Discharge Diagnosis: Hematemesis Activity: Resume your previous activity Non-emergency contact: Primary Care Provider Call non-emergency contact if: your symptoms worsen Follow-up/Referrals: Clara Weathers MD [Primary Care Provider] - Diet: Heart Healthy Diet Texture: Dental soft (bite-sized) Addtl Attending Provider Instructions: You were admitted due to vomiting up blood called hematemesis. The Aleve he had been taking at nighttime likely contributed to this incidentrecommend stopping Aleve indefinitely. You were noted on the EGD to have esophageal varices due to having liver cirrhosis. These varices are essentially dilated veins in the esophagus that can bleed which likely contributed to the vomiting up of blood as well. You should have a recheck of an EGD with gastroenterology in 1 year. You are recommended to use melatonin at nighttime as needed to help with sleep. If you continue to have issues with sleep, you should discuss further options with your PCP. You are recommended to continue with Plavix but hold off on aspirin. This needs to be further discussed with your vascular surgery team who did your procedure for your carotid artery and your PCP to weigh the pros and cons of doing both aspirin and Plavix versus just Plavix. Continue with iron supplementation. You are recommended to recheck your anemia level outpatient. Otherwise continue your current medications as prescribed. Please ensure follow-up appointment with your PCP. Pending Studies at Discharge: No Stand-Alone Forms: [facility] Medications and DC Order Prescriptions: New melatonin 3 mg Tablet 3 mg PO HS PRN (Reason: sleep) Qty: 30 0RF Continued ferrous sulfate 325 mg (65 mg iron) tablet 325 mg PO DAILY Qty: 90 1RF omeprazole 40 mg capsule,delayed release(DR/EC) 40 mg PO QAM Qty: 90 1RF levothyroxine 50 mcg tablet 50 mcg PO QAM Qty: 90 1RF triamterene-hydrochlorothiazid 37.5-25 mg capsule 1 cap PO QAM Qty: 90 1RF fluoxetine [Prozac] 40 mg capsule 40 mg PO QAM Qty: 90 1RF cetirizine [Zyrtec] 10 mg tablet 10 mg PO DAILY PRN (Reason: seasonal allergies) clopidogrel [Plavix] 75 mg tablet 75 mg PO QAM Qty: 90 1RF Patient Comments: stopped taking today 01/20/23 for upcoming procedure. atorvastatin [Lipitor] 20 mg Tablet 20 mg PO QAM Discharge Orders: Discharge Order (Routine); Ordered 07/12/23 Ordered By: Denisa Chavez Admission Data Admit Date/Time: 07/09/23 21:31 Attending Provider: Denisa Chavez Admit Provider: Mike Hale Primary Care Provider: Clara Weathers Other Providers: Mike Hale; Nghia Castañeda Other Interventions: Discharge Summary Assessment (RN) Last Done: 07/10/23 14:42 Coding Level of Care Code 68462 INP/OBS DISCH >30 MIN Diagnoses Hematemesis K92.0 Nausea presence: with nausea Esophageal 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 Carotid artery stenosis I65.29 Hypertension I10 Hypothyroidism E03.9
== END 2023-07-12 13:27 | disposition home or self-care (01) ==
LOC: ED 17:14 → SUATTDRO 21:31 → 2S 21:31 → INTOOBSV 21:31 → 2S 23:18
DX: I10 Essential (primary) hypertension; I85.00 Esophageal varices without bleeding; I65.29 Occlusion and stenosis of unspecified carotid artery; K74.60 Unspecified cirrhosis of liver; Z79.82 Long term (current) use of aspirin; E66.9 Obesity, unspecified; Z86.73 Personal history of transient ischemic attack (TIA), and cerebral infarction without residual deficits; Z79.890 Hormone replacement therapy; Z79.899 Other long term (current) drug therapy; E03.9 Hypothyroidism, unspecified; Z79.02 Long term (current) use of antithrombotics/antiplatelets; Z88.5 Allergy status to narcotic agent; K92.0 Hematemesis